=== PATIENT | female | born 1980 | race Caucasian/White ===

== ENCOUNTER → 2016-06-29 | Outpatient (CLI) | payer OTHER ==
--- NOTE | 2016-06-29 14:41 | MR ---
EXAMINATION TYPE: MR lumbar spine wo con DATE OF EXAM: 06/29/2016 2:20 PM COMPARISON: 07/27/2013 HISTORY: Low back pain TECHNIQUE: T1 and T2 axial and sagittal images of the lumbar spine are submitted. FINDINGS: There is no abnormal signal seen within the visualized spinal cord or paraspinal soft tissu es. At L1-2 there is no disc herniation, degenerative disc disease, canal stenosis, or foraminal encroach ment. At L2-3 there is mild disc desiccation but no disc herniation, canal stenosis, or foraminal encroachm ent. At L3-4 there is no disc herniation, degenerative disc disease, canal stenosis, or foraminal encroach ment. At L4-5 there is disc desiccation and annular tear but no focal herniation. Neural foramina remain pa tent. No Canal stenosis. Mild facet hypertrophy. Findings are stable. At L5-S1 there is severe degenerative disc disease with discogenic marrow changes. There is mild hype rtrophy of the facets with moderate to severe left-sided foraminal encroachment and mild to moderate right foraminal encroachment. Circumferential disc bulging with a greater left lateral component is n oted. Findings are stable. IMPRESSION: 1. Stable MRI demonstrating severe degenerative disc disease L5-S1 with disc bulging greater laterall y to left resulting in moderate to severe foraminal encroachment on the left. 2. Stable disc desiccation and annular tear L4-L5 with no evidence of canal stenosis, disc herniation or foraminal encroachment.
== END | disposition home or self-care (01) ==
LOC: RADMRIMAIN 13:46
PROVIDERS: ATTEND Internal Medicine
DX: M51.27 Other intervertebral disc displacement, lumbosacral region (principal); M51.37 Other intervertebral disc degeneration, lumbosacral region
CPT/HCPCS: 72148

== ENCOUNTER 2016-10-15 17:34 | Emergency (ER) | payer OTHER ==
[2016-10-15] MEDS ORDERED: DEXAMETHASONE SOD PHOSPHATE 10 MG/ML 1 ML VIAL IV STA (17:47)
[2016-10-15] MEDS ORDERED: diphenhydrAMINE 50 MG/ML 1 ML VIAL IVP STA (17:47)
[2016-10-15] MEDS ORDERED: SODIUM CHLORIDE 0.9% 1,000 ML IV ONE (17:47)
--- NOTE | 2016-10-15 18:21 | ED ---
General Adult HPI - General Chief complaint: Skin/Abscess/Foreign Body Stated complaint: Allergic Reaction Time Seen by Provider: 10/15/16 17:41 Source: patient Mode of arrival: EMS Limitations: no limitations - History of Present Illness Initial comments: Patient presents with a chief complaint of bee sting. Patient states that she has an ALLERGY to bees, and was stung 20 minutes prior to presentation. Patient states that she gave herself a shot with her EpiPen. Patient denies any other pain or symptoms at this time. Patient specifically denies shortness of breath, chest pain, difficulty swallowing, or difficulty tolerating her own secretions. Further conversation reveals that the patient has never had fully anaphylactic reaction however she does have diffuse hives and itching when stung by a bee. On initial evaluation, patient is tachycardic likely secondary to the EpiPen, otherwise she is in no acute distress Onset/Timin -: minutes(s) Location: lower extremity Associated Symptoms: denies other symptoms - Related Data Home Medications Medication Instructions Recorded Confirmed Cyclobenzaprine [Flexeril] 10 mg PO HS 11/12/13 04/04/16 Dextroamphetamine/Amphetamine 30 mg PO BID 11/12/13 04/04/16 [Adderall] Gabapentin [Neurontin] 600 mg PO TID 11/12/13 04/04/16 Propranolol [Inderal] 60 mg PO QAM 11/12/13 04/04/16 Docusate Sodium [Colace] 100 mg PO BID 01/02/15 04/04/16 Esomeprazole Magnesium [NexIUM 20 mg PO DAILY 01/02/15 04/04/16 24Hr] Lisinopril [Prinivil] 10 mg PO QAM 03/04/16 04/04/16 Mirtazapine [Remeron] 15 mg PO HS 10/15/16 10/15/16 Pravastatin Sodium [Pravachol] 40 mg PO DAILY 10/15/16 10/15/16 Vortioxetine Hydrobromide 20 mg PO DAILY 10/15/16 10/15/16 [Trintellix] diphenhydrAMINE HCL [Benadryl] 25 mg PO HS PRN 10/15/16 10/15/16 oxyCODONE HCL/ACETAMINOPHEN 1 tab PO TID PRN 10/15/16 10/15/16 [Percocet 7.5-325 mg] Previous Rx's Medication Instructions Recorded LORazepam [Ativan] 1 mg PO BID #10 tab 01/05/15 Ziprasidone [Geodon] 60 mg PO BID #14 cap 01/05/15 EPINEPHrine [Epipen 2-Kaiden] 0.3 mg IJ ONCE PRN #1 auto.injct 10/15/16 diphenhydrAMINE HCL [Benadryl] 25 mg PO HS #12 tab 10/15/16 predniSONE 50 mg PO DAILY #3 tablet 10/15/16 Allergies Allergy/AdvReac Type Severity Reaction Status Date / Time omeprazole Allergy Rash/Hives Verified 10/15/16 18:46 Review of Systems ROS Statement: Those systems with pertinent positive or pertinent negative responses have been documented in the HPI. Patient denies dizziness, lightheadedness, shortness of breath, trouble swallowing, trouble breathing, chest pain, abdominal pain, nausea, vomiting, diarrhea, dysuria, vaginal bleeding, vaginal discharge ROS Other: All systems not noted in ROS Statement are negative. Past Medical History Past Medical History: GERD/Reflux, Hypertension, Sleep Apnea/CPAP/BIPAP Additional Past Medical History / Comment(s): vomiting,uses cpap,has Nexplanon Implant History of Any Multi-Drug Resistant Organisms: None Reported Additional Past Surgical History / Comment(s): sinus surgery,R K surg Past Anesthesia/Blood Transfusion Reactions: Motion Sickness Past Psychological History: Anxiety, Bipolar, Depression Smoking Status: Current some day smoker Past Alcohol Use History: None Reported Past Drug Use History: None Reported - Past Family History Mother Family Medical History: Cancer Additional Family Medical History / Comment(s): lymphoma and leukemia Father Family Medical History: Hypertension General Exam Limitations: no limitations General appearance: alert, in no apparent distress Head exam: Present: atraumatic, normocephalic Eye exam: Present: normal appearance ENT exam: Present: normal oropharynx, mucous membranes moist Neck exam: Present: normal inspection Respiratory exam: Present: normal lung sounds bilaterally Cardiovascular Exam: Present: normal rhythm, tachycardia GI/Abdominal exam: Present: soft Rectal exam: Present: deferred Extremities exam: Present: other (Right lower extremity has a very small puncture wounds likely secondary to an insect sting or on the anterior aspect of her mid rinaldi) Back exam: Present: normal inspection Neurological exam: Present: alert, oriented X3 Psychiatric exam: Present: normal affect, normal mood Skin exam: Present: warm, dry, intact Course Vital Signs 10/15/16 17:38 Temperature 100.4 F H Pulse Rate 123 H Respiratory 20 Rate Blood Pressure 125/73 O2 Sat by Pulse 99 Oximetry Medical Decision Making - Medical Decision Making Patient presents with a chief complaint of bee sting, and a history of ALLERGIES to bee stings. On arrival, patient is tachycardic likely secondary to self administration of EpiPen but otherwise stable. Patient appears to be in no distress. Patient speaking in full sentences, breathing is nonlabored. Patient was given IV Decadron, Benadryl, and a liter of IV fluids. Patient will be monitored for an hour. 6:47 PM Patient has remained stable and her period of observation the emergency department. She continued to maintain her airway, and is having nonlabored breathing. This time, patient is stable for outpatient management. I will prescribe Benadryl, a course of prednisone. Patient will be given a prescription for an EpiPen. She is instructed to follow-up with her primary care doctor in 3-5 days. Further she is instructed to return to the emergency department if her symptoms worsen or change in any way. Disposition Clinical Impression: Allergic reaction, Bee sting allergy Disposition: HOME SELF-CARE Condition: Good Instructions: Anaphylaxis (ED) Referrals: Tiarra Jimenez MD [Primary Care Provider] - 1-2 days
[2016-10-15 19:22] VITALS: BP 121/73; PULSE 101; RESP 16; TEMP 98.7
== END 2016-10-15 19:23 | disposition home or self-care (01) ==
LOC: EC 17:34
DX: T63.441A Toxic effect of venom of bees, accidental (unintentional), initial encounter (principal); R00.0 Tachycardia, unspecified; Z91.030 Bee allergy status; I10 Essential (primary) hypertension; K21.9 Gastro-esophageal reflux disease without esophagitis; F17.200 Nicotine dependence, unspecified, uncomplicated; F32.9 Major depressive disorder, single episode, unspecified; F41.9 Anxiety disorder, unspecified; Z79.899 Other long term (current) drug therapy; Z88.8 Allergy status to other drugs, medicaments and biological substances
CPT/HCPCS: 99284; 96374; 96375; 96361; J1200; J1100

== ENCOUNTER → 2016-12-24 | Outpatient (CLI) | payer OTHER ==
--- NOTE | 2016-12-24 11:34 | P.HPIM ---
History of Present Illness H&P Date: 12/24/16 Chief Complaint: low back pain This is a 36-year-old obese female patient referred by Dr. Jimenez for chronic pain in low back without radiation. Patient has been taking medications from primary care physician including Percocet medications with some relief. Patient denies adverse drug effects from medications. Patient also denies new- onset weakness, bowel/bladder incontinence, or any other signs or symptoms of cauda equina syndrome. There are no signs of acute intoxication, and no indications of medication diversion or overuse. Patient notes that pain worsens significantly with standing and walking and improves with rest and medication. Patient has used several types of medications for pain, including NSAIDS, OPIOIDS (Percocet), BENZODIAZEPINES (Ativan), and marijuana. Patient HAS NOT had surgery. Patient HAS had injections previously without significant relief. Patient HAS had physical therapy last year without significant relief. In addition to above, 13-point review of systems is also negative for chest pain , shortness of breath, changes in vision, changes in hearing, new onset weakness , abdominal pain, diarrhea, extreme fatigue, malaise, fever, skin changes, homicidal or suicidal ideation, or bowel or bladder incontinence. Vital Signs: Reviewed in EMR Gen: WDWN, AAOx3, NAD HEENT: NCAT, EOMI, hearing grossly normal Pulm: resp unlabored Abd: soft, NT, ND, obese Neck: supple, trachea midline ROM in flexion lumbar spine: reduced ROM in extension lumbar spine: reduced Lumbar paravertebral tenderness: + Facet loading: + bilateral, R > L SI joint tenderness: + R > L Demetrius's test: neg Straight leg raise: neg Neuro: CN II-XII grossly intact, muscle strength lower extremities PRESERVED Past Medical History Past Medical History: GERD/Reflux, Hypertension, Sleep Apnea/CPAP/BIPAP Additional Past Medical History / Comment(s): vomiting,uses cpap,has Nexplanon Implant History of Any Multi-Drug Resistant Organisms: None Reported Additional Past Surgical History / Comment(s): sinus surgery,R K surg Past Anesthesia/Blood Transfusion Reactions: Motion Sickness Smoking Status: Current some day smoker - Past Family History Mother Family Medical History: Cancer Additional Family Medical History / Comment(s): lymphoma and leukemia Father Family Medical History: Hypertension Medications and Allergies Home Medications Medication Instructions Recorded Confirmed Type Cyclobenzaprine [Flexeril] 10 mg PO HS 11/12/13 12/24/16 History Dextroamphetamine/Amphetamine 30 mg PO BID 11/12/13 12/24/16 History [Adderall] Gabapentin [Neurontin] 600 mg PO TID 11/12/13 12/24/16 History Propranolol [Inderal] 60 mg PO DAILY 11/12/13 12/24/16 History Docusate Sodium [Colace] 100 mg PO BID 01/02/15 12/24/16 History Esomeprazole Magnesium [NexIUM 20 mg PO DAILY 01/02/15 12/24/16 History 24Hr] Ziprasidone [Geodon] 60 mg PO BID #14 cap 01/05/15 12/24/16 Rx Lisinopril [Prinivil] 10 mg PO DAILY 03/04/16 12/24/16 History EPINEPHrine [Epipen 2-Kaiden] 0.3 mg IJ ONCE PRN #1 auto.injct 10/15/16 12/24/16 Rx Mirtazapine [Remeron] 7.5 mg PO HS 10/15/16 12/24/16 History Pravastatin Sodium [Pravachol] 40 mg PO DAILY 10/15/16 12/24/16 History Vortioxetine Hydrobromide 20 mg PO DAILY 10/15/16 12/24/16 History [Trintellix] oxyCODONE HCL/ACETAMINOPHEN 1 tab PO TID PRN 10/15/16 12/24/16 History [Percocet 7.5-325 mg] LORazepam [Ativan] 1 mg PO TID 12/24/16 12/24/16 History Allergies Allergy/AdvReac Type Severity Reaction Status Date / Time omeprazole Allergy Rash/Hives Verified 12/24/16 11:17 Physical Exam Vitals: Intake and Output 12/23/16 12/24/16 12/24/16 22:59 06:59 14:59 Other: Weight 127.006 kg Patient Weight 12/25/16 06:59 Weight 127.006 kg Assessment and Plan Plan: 1. Explanation: Opioid and psychological risk scores were reviewed. Diagnoses , prognoses, and multiple treatment options including but not limited to physical therapy, interventional therapies, adjuvant medical therapies, narcotic medication therapies, and surgery were discussed with the patient and all questions were answered to the patient's satisfaction. 2. Opioid agreement: no opioids prescribed today 3. Counseling: The patient was counseled extensively on SMOKING CESSATION, BODY MASS INDEX, EXERCISE. Specifically, the patient was instructed regarding the importance of smoking cessation, weight control, and exercise in the context of both chronic pain and overall health. 4. Procedures: bilateral lumbar MBB L3-S1 5. Consultations: none 6. Investigations: none 7. Medications: none prescribed, patient uses THC 8. Disposition: f/u for procedure as scheduled PQRS measures: 1-Patient's medications are documented in the chart. 2-Tobacco use is positive, counseling given 3-Patient has not had a pneumococcal vaccine. 4-Advanced care planning discussed, patient unable to give. 5-Opioid contract signed with the patient. 6-Pain positive, follow-up visit or procedure scheduled 7-Patient's blood pressure measured and documented, and patient will follow up with the primary care due to hypertension. 8-Patient's weight was measured, and body mass index ABOVE the normal limits, and counseling was done. Patient instructed to follow up with PCP. 9-Patient WAS NOT identified as an unhealthy alcohol user. Time with Patient: Greater than 30
== END ==
LOC: PNWHC3 10:51
PROVIDERS: ATTEND Anesthesiology
DX: M99.73 Connective tissue and disc stenosis of intervertebral foramina of lumbar region (principal); M51.26 Other intervertebral disc displacement, lumbar region; M47.816 Spondylosis without myelopathy or radiculopathy, lumbar region; F17.200 Nicotine dependence, unspecified, uncomplicated; E66.01 Morbid (severe) obesity due to excess calories; Z79.899 Other long term (current) drug therapy; Z88.8 Allergy status to other drugs, medicaments and biological substances
CPT/HCPCS: 99211

== ENCOUNTER 2017-02-11 09:20 | Day surgery (SDC) | payer OTHER ==
[2017-02-06 13:36] VITALS: BMI 48.0
[~2017-02-11 09:20] MED LIST: LACTATED RINGERS 1,000 ML IV SCH
[2017-02-11 09:41] VITALS: TEMP 97.2
[2017-02-11] MEDS ORDERED: LIDOCAINE 1% 20 ML VIAL (10MG/ML) FOR IV START INTRADERMA ONE (09:42)
--- NOTE | 2017-02-11 10:03 | P.PCN ---
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 POSTOPERATIVE DIAGNOSIS: L3-L4, L4-L5, and L5-S1 spondylosis without myelopathy and facet arthropathy. PROCEDURE DESCRIPTION: Patient presents for L3-L4, L4-L5 and L5-S1 diagnostic medial branch blocks under fluoroscopic guidance. The procedure is performed using fluoroscopic guidance during needle placement to assure proper position and maximize safety. ANESTHESIA: Local with 1% lidocaine; conscious sedation with Versed only EBL: Minimal PROCEDURE INDICATION: Patient with lumbar facet arthropathy signs and symptoms, here for diagnostic medial branch block. Pt does not take any blood thinning medications. LMBB #2 today after >50% relief for two weeks from first procedure. PROCEDURE DESCRIPTION: The patient was seen and identified in the preoperative area. Risks, benefits, complications, and alternatives were discussed with the patient (including but not limited to incomplete pain relief, bleeding, infection, nerve damage, and allergies to medications), the patient agreed to proceed with the procedure and signed the consent after all questions were answered. Patient was taken to the OR and time out was completed to verify proper patient, position, laterality of pain, and allergies. Pt was placed in the prone position and a pillow was placed under the abdomen to reduce lumbar lordosis. The lumbosacral area was prepped and draped in the usual sterile fashion. Using oblique fluoroscopy, the eye of the "Jorge dog" of right L4 vertebral body, which corresponds to the path of the medial branch originating from the level above, which is L3 in this case, was identified. Subsequently, a 22-gauge 5-inch spinal needle was inserted under fluoroscopic guidance toward the eye of the "Jorge dog" of the right L4 vertebral body, corresponding to the junction of the superior articular process and the transverse process of the pedicle of the same level. After needle tip confirmation on lateral view and after negative aspiration for CSF and blood and without paresthesias, 1 mL of a 6 ml solution of 0.5% preservative-free bupivacaine and 40 mg Kenalog was injected. Subsequently the needle was withdrawn intact and the same procedure was repeated for the right L4, right L5, left L3, left L4, and left L5 medial branches which together with right L3 medial branch correspond to the sensory innervation of the bilateral L3-L4, L4-L5, and L5-S1 facet joints. Needle was withdrawn intact after each injection. At the end of the procedure, the skin was cleansed and bandages were applied. COMPLICATIONS: None. DISPOSITION/PLAN: The patient taken to the recovery area after the procedure in a stable condition for observation. Patient was reexamined prior to discharge and there were no issues. Patient was discharged home, accompanied by an adult, after meeting discharged criteria. Discharge instructions were give to the patient by the staff. Patient was specifically instructed not to drive today and to rest for the rest of the day. Patient will follow up for repeat R lumbar RFA at next visit.
[2017-02-11] MEDS ORDERED: IV FLUID CONTINUATION 1,000 ML IV ONE (10:15)
--- NOTE | 2017-02-11 10:28 | FL ---
Fluoroscopy INDICATION: Pain FINDINGS: Fluoroscopy time: 28 seconds. Images obtained: 6. IMPRESSIONS: 1. Documentation of fluoroscopy.
[2017-02-11 10:44] VITALS: BP 131/93; PULSE 91; RESP 18
== END 2017-02-11 10:44 | disposition home or self-care (01) ==
LOC: ORPAIN 09:20
PROVIDERS: ATTEND Anesthesiology
DX: M47.816 Spondylosis without myelopathy or radiculopathy, lumbar region (principal); M47.817 Spondylosis without myelopathy or radiculopathy, lumbosacral region; M46.96 Unspecified inflammatory spondylopathy, lumbar region; M46.97 Unspecified inflammatory spondylopathy, lumbosacral region; I10 Essential (primary) hypertension; E78.5 Hyperlipidemia, unspecified; F32.9 Major depressive disorder, single episode, unspecified; Z88.8 Allergy status to other drugs, medicaments and biological substances
CPT/HCPCS: 81025; 64493; 64494; 64495; J2250; J3301; 99152; 99153

== ENCOUNTER 2017-04-24 17:21 | Emergency (ER) | payer OTHER ==
[2017-04-24 17:41] VITALS: BP 129/87; PULSE 89; RESP 18; TEMP 98
[2017-04-24] MEDS ORDERED: ACETAMINOPHEN TAB 500 MG TAB PO STA (18:38)
--- NOTE | 2017-04-24 18:43 | ED ---
Head Injury HPI - General Chief complaint: Head Injury Stated complaint: Head injury Time Seen by Provider: 04/24/17 18:27 Source: patient, RN notes reviewed Mode of arrival: ambulatory Limitations: no limitations - History of Present Illness Initial comments: This is a 36-year-old female who presents to the emergency department with chief complaint of scalp laceration. Patient states that approximately one hour prior to arrival she was cleaning a bookshelf. She started from the bottom of the bookshelf and it fell over hitting her on the top of the head. She denies any loss of consciousness, nausea or vomiting, dizziness. She states that she does have a mild headache currently. She states that she does not believe she is up-to-date with her tetanus vaccination. Denies any other injuries. Denies being on any anticoagulants or blood thinners. Denies fever, chills, chest pain , shortness of breath, abdominal pain, nausea or vomiting, constipation or diarrhea, dysuria or hematuria, numbness or tingling, or vision changes. - Related Data Home Medications Medication Instructions Recorded Confirmed Cyclobenzaprine [Flexeril] 10 mg PO HS 11/12/13 03/17/17 Dextroamphetamine/Amphetamine 30 mg PO BID 11/12/13 03/17/17 [Adderall] Gabapentin [Neurontin] 600 mg PO TID 11/12/13 03/17/17 Propranolol [Inderal] 60 mg PO DAILY 11/12/13 03/17/17 Docusate Sodium [Colace] 100 mg PO BID 01/02/15 03/17/17 Esomeprazole Magnesium [NexIUM 20 mg PO DAILY 01/02/15 03/17/17 24Hr] Lisinopril [Prinivil] 10 mg PO DAILY 03/04/16 03/17/17 Pravastatin Sodium [Pravachol] 40 mg PO DAILY 10/15/16 03/17/17 Vortioxetine Hydrobromide 20 mg PO DAILY 10/15/16 03/17/17 [Trintellix] oxyCODONE HCL/ACETAMINOPHEN 1 tab PO TID 10/15/16 03/17/17 [Percocet 7.5-325 mg] LORazepam [Ativan] 1 mg PO BID 12/24/16 03/17/17 LORazepam [Ativan] 0.5 mg PO W/LUNCH 01/09/17 03/17/17 traZODone HCL [Desyrel] 50 mg PO HS 02/06/17 03/17/17 Topiramate [Trokendi Xr] 100 mg PO HS 03/17/17 03/17/17 Previous Rx's Medication Instructions Recorded Ziprasidone [Geodon] 60 mg PO BID #14 cap 01/05/15 Allergies/Adverse reactions: Allergies Allergy/AdvReac Type Severity Reaction Status Date / Time omeprazole Allergy Rash/Hives Verified 03/17/17 16:00 Review of Systems ROS Statement: Those systems with pertinent positive or pertinent negative responses have been documented in the HPI. ROS Other: All systems not noted in ROS Statement are negative. Past Medical History Past Medical History: COPD, GERD/Reflux, Hyperlipidemia, Hypertension, Sleep Apnea/CPAP/BIPAP Additional Past Medical History / Comment(s): hx migraines, ,has Nexplanon Implant, History of Any Multi-Drug Resistant Organisms: None Reported Additional Past Surgical History / Comment(s): sinus surgery, eye Past Anesthesia/Blood Transfusion Reactions: Motion Sickness Past Psychological History: Anxiety, Bipolar, Depression Smoking Status: Current every day smoker Past Alcohol Use History: None Reported Past Drug Use History: None Reported - Past Family History Mother Family Medical History: Cancer Additional Family Medical History / Comment(s): lymphoma Father Family Medical History: Hypertension General Exam - General Exam Comments Initial Comments: General: Awake and alert, well-developed; in no apparent distress. HEENT: Head normocephalic. Approximately 1.0 cm linear laceration at mid frontal parietal skull. Bleeding is controlled. Pupils are equal, round and reactive to light. Extraocular movements intact. Oropharynx moist without erythema or exudate. Neck: Supple. Normal ROM. Cardiovascular: Regular rate and rhythm. No murmurs, rubs or gallops. Chest symmetrical. Respiratory: Lungs clear to auscultation bilaterally. No wheezes, rales or rhonchi. Normal respiratory effort with no use of accessory muscles. Musculoskeletal: Normal ROM, no tenderness bilateral upper and lower extremities. Skin: Angels, warm and dry without rashes or lesions. Neurological: Alert and oriented x3. CN II-XII grossly intact. Speech is fluent and answers are appropriate. No focal neuro deficits. Psychiatric: Normal mood and affect. No overt signs of depression or anxiety noted. Limitations: no limitations Course Vital Signs 04/24/17 17:39 Temperature 98 F Pulse Rate 89 Respiratory 18 Rate Blood Pressure 129/87 O2 Sat by Pulse 98 Oximetry Procedures - Laceration Laceration #1 Consent Obtained: verbal consent Indication: laceration Site: scalp Size (cm): 1 Description: linear Depth: simple, single layer Type of Sutures: other (Delaney) Number of Sutures: 2 Technique: simple, interrupted Patient Tolerated Procedure: well, no complications Medical Decision Making - Medical Decision Making This is a 36-year-old female who presents to the emergency department for evaluation of head injury. Patient denied any loss of consciousness, dizziness , nausea or vomiting. She denied any other injury. Patient sustained a 1.0 cm linear laceration at the top of head. 2 delaney were placed and patient tolerated well without complication. She will be discharged home. Recommended removal of delaney in 5 days. Patient is in agreement with plan and voices understanding. All questions were answered. Disposition Clinical Impression: Scalp laceration Disposition: HOME SELF-CARE Condition: Good Instructions: Laceration (ED), Staple Care (ED), Head Injury (ED) Additional Instructions: Please have delaney removed in 5 days. Please follow up with primary care provider within 1-2 days. Return to emergency department if symptoms should worsen or any concerns arise. Referrals: Tiarra Jimenez MD [Primary Care Provider] - 1-2 days Time of Disposition: 19:03
== END 2017-04-24 19:07 | disposition home or self-care (01) ==
LOC: EC 17:21
DX: S01.01XA Laceration without foreign body of scalp, initial encounter (principal); K21.9 Gastro-esophageal reflux disease without esophagitis; E78.5 Hyperlipidemia, unspecified; I10 Essential (primary) hypertension; G47.30 Sleep apnea, unspecified; Z99.89 Dependence on other enabling machines and devices; F41.9 Anxiety disorder, unspecified; F32.9 Major depressive disorder, single episode, unspecified; F17.200 Nicotine dependence, unspecified, uncomplicated; Z86.69 Personal history of other diseases of the nervous system and sense organs; Z79.891 Long term (current) use of opiate analgesic; Z79.899 Other long term (current) drug therapy; Z88.8 Allergy status to other drugs, medicaments and biological substances; W20.8XXA Other cause of strike by thrown, projected or falling object, initial encounter; Y93.89 Activity, other specified
CPT/HCPCS: 12001; 99283

== ENCOUNTER 2017-05-08 09:40 | Day surgery (SDC) | payer OTHER ==
[2017-05-05 09:28] VITALS: BMI 44.6
[2017-05-08 09:56] VITALS: RESP 16; TEMP 97.6
[2017-05-08] MEDS ORDERED: LIDOCAINE 1% 20 ML VIAL (10MG/ML) FOR IV START INTRADERMA ONE (09:57)
--- NOTE | 2017-05-08 11:12 | P.PCN ---
Date of Procedure: 05/08/17 Surgeon: Jeremy Ricks Description of Procedure: PREOPERATIVE DIAGNOSIS: Lumbar spondylosis without myelopathy, morbid obesity POSTOPERATIVE DIAGNOSIS: Lumbar spondylosis without myelopathy,morbid obesity PROCEDURES : Right Radiofrequency thermocoagulation,L2-4, L3-L4, L4-L5, and L5- S1 medial branch, with fluoroscopic guidance ANESTHESIA: IV moderate conscious sedation with versed and fentanyl and local infiltration with lidocaine 1% 5 ml EBL: Minimal PROCEDURE INDICATION: The patient with low back pain secondary to lumbar facet arthropathy who had more than 50% relief of her pain with previous diagnostic lumbar medial branch block with bupivacaine. PROCEDURE DESCRIPTION / TECHNIQUE: The patient was seen and identified in the preoperative area. Risks, benefits, complications, including but not limited to risk of infection ,bleeding , allergic reactions to the medications and no complete pain releife , and alternatives were discussed with the patient, the patient agreed to proceed with the procedure and signed the consent. IV was started. Vital signs remained stable throughout the procedure. Patient was taken to the OR and time out was completed. The patient was placed in the prone position on the procedure table. The lumber area was prepped and draped in the usual sterile fashion. . Vital signs were closely monitored during the procedure .IV sedation was used during the procedure to decrease patients anxiety. The target points were identified as follows: For the L5-S1 level which corresponds to the dorsal ramus of L5 the target point was at the superior medial aspect of the sacral ala on the rt side of the spine on the AP view of fluoroscopy and for the L2, L3, and L4 medial branches the target points were at the connection between the transverse process and the superior articular process of L3, L4, and L5 vertebra respectively on the rt oblique view of fluoroscopy. skin was marked, and localized with 1% lidocaineat these points. Subsequently, an 18 [id number] radiofrequency needles with a 10-mm curved active tips were advanced guided by fluoroscopy to each of the target points mentioned above in a superior medial direction to get the active tips as parallel as possible to the medial branches tracks. AP, oblique, and lateral views of fluoroscopy were used to verify needle tips position. Each level then underwent motor testing at 2.5 Hz and 0 to 3 volt with local stimulation, but no radicular symptoms down the legs. Thereafter radiofrequency thermocoagulation at 80 degrees celsius for 90 seconds after injecting 1 ml of PF Marcaine 0.5%(3 mls) with 40 mg of Kenalog. At the end of the procedure, the skin was cleansed and bandages were applied. COMPLICATIONS: No acute complications. DISPOSITION / PLANS: The patient was placed in a supine position and transferred to the recovery area in a stable condition for observation and was discharged from the recovery room after meeting discharge criteria. Home discharge instructions given to the patient by the staff. The patient was reexamined prior to discharge. The patient will schedule a follow up in the clinic in 2-4 weeks.
--- NOTE | 2017-05-08 11:38 | FL ---
EXAMINATION TYPE: FL guided pain mgmt statistic DATE OF EXAM: 05/08/2017 FLUOROSCOPY Fluoroscopy time of 34 seconds was used during right-sided lumbar radiofrequency ablation. 3 image/s document/s the procedure.
[2017-05-08 11:49] VITALS: BP 127/88; PULSE 74
== END 2017-05-08 12:14 | disposition home or self-care (01) ==
LOC: ORPAIN 09:40
PROVIDERS: ATTEND Anesthesiology
DX: M47.816 Spondylosis without myelopathy or radiculopathy, lumbar region (principal); I10 Essential (primary) hypertension; E66.01 Morbid (severe) obesity due to excess calories; Z68.41 Body mass index [BMI] 40.0-44.9, adult; Z88.8 Allergy status to other drugs, medicaments and biological substances
CPT/HCPCS: 64635; 64636 ×3; 81025; J2250; J3301; J2001; J3010; 99152; 99153

== ENCOUNTER 2017-06-09 08:44 | Day surgery (SDC) | payer OTHER ==
[2017-06-06 10:29] VITALS: BMI 46.3
[2017-06-09 08:59] VITALS: TEMP 98
[2017-06-09] MEDS ORDERED: LACTATED RINGERS 1,000 ML IV ONE (08:59)
[2017-06-09] MEDS ORDERED: LIDOCAINE 1% 20 ML VIAL (10MG/ML) FOR IV START INTRADERMA ONE (09:00)
--- NOTE | 2017-06-09 09:28 | P.PCN ---
Date of Procedure: 06/09/17 Surgeon: Milo Briggs Pathology: none sent Condition: stable Disposition: PACU Description of Procedure: PREOPERATIVE DIAGNOSIS: Lumbar spondylosis without myelopathy and facet arthropathy POSTOPERATIVE DIAGNOSIS: Lumbar spondylosis without myelopathy and facet arthropathy PROCEDURES: Left Radiofrequency thermocoagulation, L3-L4, L4-L5, and L5-S1 medial branch, with fluoroscopic guidance. ANESTHESIA: 1% lidocaine plain; Conscious sedation with versed/fentanyl EBL: Minimal PROCEDURE INDICATION: The patient with low back pain secondary to lumbar arthropathy who had more than 50% relief of pain with previous diagnostic lumbar medial branch block with bupivacaine. Patient presents for left lumbar RFA today after good relief from right sided procedure; no use of blood thinners. PROCEDURE DESCRIPTION / TECHNIQUE: The patient was seen and identified in the preoperative area. Risks, benefits, complications, and alternatives were discussed with the patient (including but not limited to incomplete pain relief , bleeding, infection, nerve damage, and allergies to medications), the patient agreed to proceed with the procedure and signed the consent after all questions were answered. Patient was taken to the OR and time out was completed to verify proper patient , position, laterality of pain, and allergies. Pt was placed in the prone position. IV was started. Vital signs remained stable throughout the procedure. A pillow was placed under the patients chest to decrease lordosis. The lumbosacral area was prepped and draped in the usual sterile fashion. Vital signs were closely monitored during the procedure. Conscious sedation was used during the procedure to decrease patients anxiety. Using AP and then oblique fluoroscopy, the eye of the Jorge dog corresponding to the connection between the superior and transverse articular processes of left L3, L4, L5 and top of the sacrum were identified, marked, and localized with 1% lidocaine. Subsequently, a 20 gauge, 150-mm radiofrequency cannula with a 10-mm active tip was advanced guided by fluoroscopy to each of the eyes of the Jorge dog at the levels of all four medial branches. Each site then underwent sensory testing at 50 Hz and 0 to 1 volt and motor testing at 2 Hz and 0 to 3 volt with local stimulation, but no radicular symptoms down the legs. Thereafter all four medial branch sites underwent radiofrequency thermocoagulation at 80 degrees Celsius for 90 seconds after injecting 0.5 ml of PF lidocaine 1%. After thermocoagulation, 1 ml of the block solution containing Kenalog 40 mg and 2 mL of preservative-free normal saline was injected at all four medial branch levels after negative aspiration of CSF and blood and with no paresthesias. Cannulas were retracted while injecting lidocaine 1% until the needles were removed. At the end of the procedure, the skin was cleansed and bandages were applied. COMPLICATIONS: No acute complications. DISPOSITION / PLANS: The patient was placed in a supine position and transferred to the recovery area in a stable condition for observation and was discharged from the recovery room after meeting discharge criteria. Home discharge instructions given to the patient by the staff. The patient was reexamined prior to discharge. The patient will schedule a follow up in the clinic in 2-4 weeks.
[2017-06-09] MEDS ORDERED: IV FLUID CONTINUATION 1,000 ML IV ONE (09:56)
[2017-06-09 10:15] VITALS: RESP 16
[2017-06-09 10:18] VITALS: BP 124/76; PULSE 81
--- NOTE | 2017-06-09 11:19 | FL ---
EXAMINATION TYPE: FL guided pain mgmt statistic DATE OF EXAM: 06/09/2017 COMPARISON: NONE HISTORY: Back pain TECHNIQUE: Fluoroscopy. FINDINGS/IMPRESSION: Fluoroscopic guidance was provided during procedure performed by Dr. Mendez. A total of 8 seconds of fluoroscopic time was utilized during the procedure and 4 spot images was acqu ired demonstrating localization at multiple levels of the lumbar spine.
== END 2017-06-09 10:44 | disposition home or self-care (01) ==
LOC: ORPAIN 08:44
PROVIDERS: ATTEND Anesthesiology
DX: M47.816 Spondylosis without myelopathy or radiculopathy, lumbar region (principal); I10 Essential (primary) hypertension; E78.5 Hyperlipidemia, unspecified; G47.30 Sleep apnea, unspecified; K21.9 Gastro-esophageal reflux disease without esophagitis; Z88.8 Allergy status to other drugs, medicaments and biological substances
CPT/HCPCS: 81025; 64635; 64636; J2250; J3301; J3010; 99152

== ENCOUNTER → 2017-07-03 | Outpatient (CLI) | payer OTHER ==
[2017-07-03 11:53] VITALS: BP 119/86; PULSE 102; RESP 16; TEMP 97.9
--- NOTE | 2017-07-03 11:55 | P.PN ---
Progress Note - Text Progress Note Date: 07/03/17 Patient returns for followup for chronic back pain with radiation to hips. Patient recently underwent bilateral lumbar RFA, which has provided relief since procedures. Patient continues on [place] medications for pain from PCP with good relief. Patient denies adverse drug effects from medications. Today , pt denies new-onset weakness, bowel/bladder incontinence, or any other signs or symptoms of cauda equina syndrome. There are no signs of acute intoxication, and no indications of medication diversion or overuse. In addition to above, 13-point review of systems is also negative for chest pain , shortness of breath, changes in vision, changes in hearing, new onset weakness , abdominal pain, diarrhea, extreme fatigue, malaise, fever, skin changes, homicidal or suicidal ideation, or bowel or bladder incontinence. Vital Signs: Reviewed in EMR Gen: WDWN, AAOx3, NAD HEENT: NCAT, EOMI, hearing grossly normal Pulm: resp unlabored Abd: soft, NT, ND, obese Neck: supple, trachea midline ROM in flexion lumbar spine: reduced ROM in extension lumbar spine: reduced Lumbar paravertebral tenderness: + Facet loading: minimal SI joint tenderness: neg Demetrius's test: + L > R Straight leg raise: neg Neuro: CN II-XII grossly intact, muscle strength lower extremities PRESERVED Imaging: Reviewed in EMR Assessment: 1. lumbar spondylosis without myelopathy 2. chronic pain syndrome 3. obesity NOS Plan: 1. Explanation: Opioid and psychological risk scores were reviewed. Diagnoses , prognoses, and multiple treatment options including but not limited to physical therapy, interventional therapies, adjuvant medical therapies, narcotic medication therapies, and surgery were discussed with the patient and all questions were answered to the patient's satisfaction. 2. Opioid agreement: no opioids prescribed today 3. Counseling: The patient was counseled extensively on BODY MASS INDEX, EXERCISE. Specifically, the patient was instructed regarding the importance of smoking cessation, weight control, and exercise in the context of both chronic pain and overall health. 4. Procedures: none for now 5. Consultations: None 6. Investigations: None 7. Medications: none 8. Disposition: f/u as needed; patient can call to reschedule RFA PQRS measures: 1-Patient's medications are documented in the chart. 2-Tobacco use is positive, counseling given 3-Patient has not had a pneumococcal vaccine. 4-Advanced care planning discussed, patient unable to give. 5-Opioid contract NOT signed with the patient. 6-Pain positive, follow-up visit or procedure scheduled 7-Patient's blood pressure measured and documented, and patient will follow up with the primary care due to hypertension. 8-Patient's weight was measured, and body mass index ABOVE the normal limits, and counseling was done. Patient instructed to follow up with PCP. 9-Patient WAS NOT identified as an unhealthy alcohol user.
== END ==
LOC: PNWHC3 11:14
PROVIDERS: ATTEND Anesthesiology
DX: G89.4 Chronic pain syndrome (principal); M47.816 Spondylosis without myelopathy or radiculopathy, lumbar region; E66.9 Obesity, unspecified; Z79.891 Long term (current) use of opiate analgesic; Z68.42 Body mass index [BMI] 45.0-49.9, adult
CPT/HCPCS: 99211

== ENCOUNTER 2017-09-01 20:39 | Emergency (ER) | payer OTHER ==
[2017-09-01] MEDS ORDERED: methylPREDNISolone SOD SUCCI 125 MG/2 ML VIAL IV STA (21:17)
[2017-09-01] MEDS ORDERED: diphenhydrAMINE 50 MG/ML 1 ML VIAL IVP STA (21:17)
--- NOTE | 2017-09-01 21:24 | ED ---
Allergic Reaction HPI - General Chief complaint: Allergic Reaction Stated complaint: Allergic reaction (wasp sing) Time Seen by Provider: 09/01/17 21:04 Source: patient, RN notes reviewed, old records reviewed Mode of arrival: ambulatory Limitations: no limitations - History of Present Illness Initial Comments: 37 rolled female presents instructed that she will complain of ALLERGIC reaction. She reports that she was stung in the right great toe. She states that she used her EpiPen at home. She reports that she had no significant shortness of breath or throat closing symptoms at time. She states that out this time she's having heart racing symptoms. Patient states that she had socks on and she stepped on the bee. She reports no significant swelling to the toe or foot. - Related Data Home Medications Medication Instructions Recorded Confirmed Cyclobenzaprine [Flexeril] 10 mg PO HS 11/12/13 07/03/17 Dextroamphetamine/Amphetamine 30 mg PO BID 11/12/13 07/03/17 [Adderall] Propranolol [Inderal] 60 mg PO DAILY 11/12/13 07/03/17 Docusate Sodium [Colace] 100 mg PO BID 01/02/15 07/03/17 Esomeprazole Magnesium [NexIUM 20 mg PO DAILY 01/02/15 07/03/17 24Hr] Lisinopril [Prinivil] 10 mg PO DAILY 03/04/16 07/03/17 Pravastatin Sodium [Pravachol] 40 mg PO DAILY 10/15/16 07/03/17 Vortioxetine Hydrobromide 20 mg PO DAILY 10/15/16 07/03/17 [Trintellix] LORazepam [Ativan] 1 mg PO BID 12/24/16 07/03/17 LORazepam [Ativan] 0.5 mg PO W/LUNCH 01/09/17 07/03/17 Topiramate [Trokendi Xr] 125 mg PO HS 03/17/17 07/03/17 Gabapentin 600 mg PO TID 04/24/17 07/03/17 traZODone HCL [Desyrel] 100 mg PO HS 04/24/17 07/03/17 Albuterol Inhaler [Ventolin Hfa 2 puff INHALATION Q4H PRN 05/05/17 07/03/17 Inhaler] HYDROcodone/APAP 10-325MG [[place] 1 tab PO Q8HR PRN 07/03/17 07/03/17 10-325] Previous Rx's Medication Instructions Recorded Ziprasidone [Geodon] 60 mg PO BID #14 cap 01/05/15 diphenhydrAMINE [Benadryl] 25 mg PO BID PRN #20 capsule 09/01/17 predniSONE 20 mg PO BID #4 tab 09/01/17 Allergies Allergy/AdvReac Type Severity Reaction Status Date / Time bee venom protein (honey bee) Allergy Rash/Hives Verified 09/01/17 21:00 omeprazole Allergy Rash/Hives Verified 07/03/17 11:35 Review of Systems ROS Statement: Those systems with pertinent positive or pertinent negative responses have been documented in the HPI. ROS Other: All systems not noted in ROS Statement are negative. Past Medical History Past Medical History: COPD, GERD/Reflux, Hyperlipidemia, Hypertension, Sleep Apnea/CPAP/BIPAP Additional Past Medical History / Comment(s): hx migraines, ,has Nexplanon Implant, History of Any Multi-Drug Resistant Organisms: None Reported Additional Past Surgical History / Comment(s): sinus surgery, eye Past Anesthesia/Blood Transfusion Reactions: Motion Sickness Past Psychological History: Anxiety, Bipolar, Depression Smoking Status: Current every day smoker Past Alcohol Use History: None Reported Past Drug Use History: None Reported - Past Family History Mother Family Medical History: Cancer Additional Family Medical History / Comment(s): lymphoma Father Family Medical History: Hypertension General Exam - General Exam Comments Initial Comments: This is a 37-year-old female. Alert and oriented. No acute distress. Limitations: no limitations General appearance: alert, in no apparent distress Head exam: Present: atraumatic, normocephalic, normal inspection Eye exam: Present: normal appearance, PERRL, EOMI. Absent: scleral icterus, conjunctival injection, periorbital swelling ENT exam: Present: normal exam, mucous membranes moist Neck exam: Present: normal inspection. Absent: tenderness, meningismus, lymphadenopathy Respiratory exam: Present: normal lung sounds bilaterally. Absent: respiratory distress, wheezes, rales, rhonchi, stridor Cardiovascular Exam: Present: regular rate, normal rhythm, normal heart sounds. Absent: systolic murmur, diastolic murmur, rubs, gallop, clicks GI/Abdominal exam: Present: soft, normal bowel sounds. Absent: distended, tenderness, guarding, rebound, rigid Extremities exam: Present: normal inspection, full ROM, normal capillary refill , other (Right great toe appears normal. No evidence of stinger. No swelling.) . Absent: tenderness, pedal edema, joint swelling, calf tenderness Back exam: Present: normal inspection Neurological exam: Present: alert, oriented X3, CN II-XII intact Psychiatric exam: Present: normal affect, normal mood Course Vital Signs 09/01/17 20:56 Temperature 98.1 F Pulse Rate 83 Respiratory 16 Rate Blood Pressure 144/98 O2 Sat by Pulse 99 Oximetry Medical Decision Making - Medical Decision Making 37-year-old female. Alert and oriented. No acute distress, presents after using her EpiPen due to ALLERGIC reaction. She stepped on a bee. She states that she took some Benadryl as well. When I arrived in the room Patient had an IV are established. Patient will be given IV Solu-Medrol and Benadryl. Her foot does not appear to be swollen. No evidence of stinger. Her lungs are clear and station. Heart rate was within normal limits. We'll monitor the Patient receiving Reyes oral Benadryl. We'll discharge with 1 day of prednisone. Patient is history plan will comply. Return parameters were discussed. Disposition Clinical Impression: Allergic reaction to bee sting Disposition: HOME SELF-CARE Condition: Good Instructions: General Allergic Reaction (ED) Additional Instructions: She is advised use steroids for the next 2 days and use Benadryl. Return to the emergency department if any alarming signs or symptoms occur. Prescriptions: diphenhydrAMINE [Benadryl] 25 mg PO BID PRN #20 capsule PRN Reason: Itching predniSONE 20 mg PO BID #4 tab Is patient prescribed a controlled substance at d/c from ED?: No When asked, does pt state using other controlled substances?: No If prescribed controlled substance>3 days was MAPS reviewed?: No If opioid is for acute pain is fill amount 7 days or less?: No If Rx opioid, was Start Talking consent form obtained?: No Referrals: Tiarra Jimenez MD [Primary Care Provider] - 1-2 days Time of Disposition: 21:21
[2017-09-01 22:03] VITALS: BP 145/88; PULSE 88; RESP 16; TEMP 98.8
== END 2017-09-01 22:03 | disposition home or self-care (01) ==
LOC: EC 20:39
DX: T63.441A Toxic effect of venom of bees, accidental (unintentional), initial encounter (principal); J44.9 Chronic obstructive pulmonary disease, unspecified; K21.9 Gastro-esophageal reflux disease without esophagitis; E78.5 Hyperlipidemia, unspecified; I10 Essential (primary) hypertension; G47.30 Sleep apnea, unspecified; F41.9 Anxiety disorder, unspecified; F31.9 Bipolar disorder, unspecified; F17.200 Nicotine dependence, unspecified, uncomplicated; Z99.89 Dependence on other enabling machines and devices; Z79.899 Other long term (current) drug therapy; Z88.8 Allergy status to other drugs, medicaments and biological substances; Z91.030 Bee allergy status
CPT/HCPCS: 99283; 96374; 96375; J1200; J2930

== ENCOUNTER → 2017-12-23 | Outpatient (CLI) | payer OTHER ==
[2017-12-23 13:13] VITALS: BP 126/85; PULSE 104; RESP 18
--- NOTE | 2017-12-24 10:05 | P.PAINPG ---
Subjective Progress Note Date: 12/23/17 This is follow-up visit for this patient with a history of severe and chronic low back pain secondary to lumbar degenerative disc disease, lumbar facet arthropathy, We have done an interventional pain procedure radiofrequency ablation medial branch lumbar area 6 months ago, and she gets good pain relief , recently she started complaining of severe low back pain The patient currently on Percocet 10/325 every 8 hours Neurontin 600 mg 3 times a day Flexeril 10 mg daily at bedtime (prescription refills from her primary care ) Patient denies any side effect of the medication , patient denies any excessive drowsiness or sleepiness, patient denies any suicidal ideation, Patient reported that the current medication is helping to control the pain and improve the activity of daily livings, Patient denies any motor or sensory deficit, denies any change in the bowel movement or urination, patient denies any fever or night sweats. Objective - Vital Signs Vital signs: Vital Signs Temp Pulse 104 H 12/23/17 13:08 Resp 18 12/23/17 13:08 BP 126/85 12/23/17 13:08 Pulse Ox 97 12/23/17 13:08 Intake & Output 12/23/17 12/24/17 12/24/17 18:59 06:59 18:59 Weight 122.47 kg - Exam Physical Examinations : 1-Constitutiona : Cooperative , not in acute distress . 2-HEENT : nech ; supple , no Lymphadenopathy , normal thyroid size . eyes : no ptosis , no icterus , no photophobia . ENT : normal of hearing , normal oropharynx , no Thrush . 3- Respiratory : Chest clear to auscultations Bilaterally , no wheezing , no Rhonchi . 4- Cardiovascular : regular rate and rhythem , S1 , S2 , no S3 , no S4. 5- Gastrointestinal : abdomen soft no tenderness , bowel sounds , no organomegally . 6- Genitourinary : Defferred . 7- neurologic : Cranial nerve II to XII intact , no focal neurological deffecit . 8-psychatric : alert , oriented X 3 , appropriate affect , intact judgment and insight . 9-Lymphatic : no Lymphadenopathy . 10- musculoskeltal : Lumber spine moter stegnth lower extremities ,thigh and legs 5/5 Right side , 5/5 Left side deep tendon reflexes : normal Knee Jerk , normal ankle Jerk positive lumber facet Loading Test Range of motion of the lumbar spine Flexion 30 degrees, extension 10 degrees strait leg raising test , positive at 45 degree Fabere test positive RT and positive LT . Assessment and Plan Plan: Assessment and plan= chronic low back pain secondary to lumbar degenerative disc disease , lumbar spondylosis with lumbar facet arthropathy . Patient had good pain relief for 6 months after the radiofrequency ablation of the medial branch lumbar area, recently she started complaining of severe low back pain patient will be scheduled to have repeat radiofrequency ablation of the medial branch lumbar area, we will schedule her to have the right side first at L3/L4 5/L5-S1 then later on we will do the left side, procedure risk and benefits and alternatives discussed with the patient she agreed with the preceding. , PQRS Measure Charge Sheet Measure #130: Documentation of Current Meds in Medical Chart: Patient's medications documented in chart Measure #226: Tobacco Use: Screen & Cessation Intervention: Pt not a tobacco user Measure #111: Pneumonia Vaccination: Pneumococcal vaccine NOT administered or previously given Measure #47: Advance Care Plan: Advance care planning discussed & documented, pt chose/unable to give Measure #412: Opioid Treatment Agreement: No documentation of signed opioid treatment agreement Measure #408: Opioid Therapy Follow-up Evaluation: Patient had NO f/u eval minimum every 3 months during opioid therapy Measure #317: Preventitive Care & Scrn High Bld Press & F/U: Normal blood pressure, f/u not required Measure #128: Body Mass Index (BMI) Screening & Follow-up: BMI documented BELOW normal parameters - f/u documented Measure #131: Pain Assessment & Follow-up: Pain positive & plan documented, Follow-up scheduled Measure #431: Unhealthy Alcohol Use Preventative Care & Scrn: Patient not identified as an unhealthy alcohol user PQRS Narrative: Smoking Status Former smoker Do You Want the Pneumonia No Vaccine AT THIS TIME? Blood Pressure 126/85 Pain Intensity [Lower Back] 7 Scale Used Numeric (1 - 10) Hx Alcohol Use (MH) No Home Medications: Ambulatory Orders Cyclobenzaprine [Flexeril] 10 mg PO HS 11/12/13 Dextroamphetamine/Amphetamine [Adderall] 30 mg PO BID 11/12/13 Propranolol [Inderal] 60 mg PO DAILY 11/12/13 Docusate Sodium [Colace] 100 mg PO BID 01/02/15 Esomeprazole Magnesium [NexIUM 24Hr] 20 mg PO DAILY 01/02/15 Ziprasidone [Geodon] 60 mg PO BID #14 cap 01/05/15 Lisinopril [Prinivil] 10 mg PO DAILY 03/04/16 Pravastatin Sodium [Pravachol] 40 mg PO DAILY 10/15/16 Vortioxetine Hydrobromide [Trintellix] 20 mg PO DAILY 10/15/16 Topiramate [Trokendi Xr] 150 mg PO HS 03/17/17 Gabapentin 600 mg PO TID 04/24/17 traZODone HCL [Desyrel] 100 mg PO HS 04/24/17 Albuterol Inhaler [Ventolin Hfa Inhaler] 2 puff INHALATION Q4H PRN 05/05/17 HYDROcodone/APAP 10-325MG [[place] 10-325] 1 tab PO Q8HR PRN 07/03/17 diphenhydrAMINE [Benadryl] 25 mg PO BID PRN #20 capsule 09/01/17 Budesonide-Formot 160-4.5 Mcg [Symbicort 160-4.5 Mcg Inhaler] INHALATION BID Diazepam [Valium] 5 mg PO TID 12/23/17 Controlled Substance Measures - Controlled Substance Measures Is patient prescribed a controlled substance at discharge?: No When asked, does pt state using other controlled substances?: No If prescribed controlled substance>3 days was MAPS reviewed?: No If Rx opioid, was Start Talking consent form obtained?: No If opioid is for acute pain is fill amount 7 days or less?: No Was information provided regarding opioid addiction?: No
== END | disposition home or self-care (01) ==
LOC: PNWHC3 12:28
PROVIDERS: ATTEND Specialist
DX: G89.29 Other chronic pain (principal); M54.5 Low back pain; M51.36 Other intervertebral disc degeneration, lumbar region; M47.816 Spondylosis without myelopathy or radiculopathy, lumbar region; M46.86 Other specified inflammatory spondylopathies, lumbar region; Z98.890 Other specified postprocedural states; Z79.891 Long term (current) use of opiate analgesic; Z87.891 Personal history of nicotine dependence
CPT/HCPCS: 99211

== ENCOUNTER → 2018-01-05 | Outpatient (CLI) | payer OTHER ==
--- NOTE | 2018-01-05 16:21 | XR ---
Lumbosacral spine HISTORY: Low back pain 5 views of the lumbosacral spine correlated to prior exam 12/24/2010 There is no significant interval change. Lumbar vertebral bodies show stable height, alignment, and b one mineralization. There is no evident spondylolysis. Disc spaces again reduced at L5-S1 with associ ated vacuum phenomenon, spondylosis is present at multiple levels. Sclerosis present in the posterior elements of the lower lumbar spine. IMPRESSION: Degenerative disc disease and facet arthropathy similar to prior exam.
== END ==
LOC: RADXRMAIN 14:49
PROVIDERS: ATTEND Physical Medicine & Rehabilitation
DX: M51.37 Other intervertebral disc degeneration, lumbosacral region (principal); M46.97 Unspecified inflammatory spondylopathy, lumbosacral region
CPT/HCPCS: 72110

== ENCOUNTER → 2018-01-07 | Day surgery (SDC) | payer OTHER ==
[2018-01-01 13:56] VITALS: BMI 46.3
[~2018-01-07] MED LIST changes: +LACTATED RINGERS 1,000 ML IV ONE; +LIDOCAINE 1% 20 ML VIAL (10MG/ML) FOR IV START INTRADERMA ONE
[2018-01-07 10:18] VITALS: RESP 16; TEMP 98.6
--- NOTE | 2018-01-07 10:44 | P.PCN ---
Date of Procedure: 01/07/18 Surgeon: Rich Zurita Description of Procedure: Procedure(s) Performed: PREOPERATIVE DIAGNOSIS: Right lumbar spondylosis POSTOPERATIVE DIAGNOSIS: PROCEDURES: Right lumbar L4, L5, sacral ala Radiofrequency ablation with fluoroscopic guidance SURGEON: Rich Zurita MD. ANESTHESIA: Moderate sedation with intravenous versed 2 mg and fentanyl 100 mcg and local infiltration with lidocaine 1% 4 ml EBL: Minimal PROCEDURE INDICATION: The patient with low back pain secondary to lumbar facet arthropathy who had more than 50% relief of pain with previous diagnostic lumbar medial branch block with bupivacaine. PROCEDURE DESCRIPTION / TECHNIQUE: The patient was seen and identified in the preoperative area. Risks, benefits, complications, including but not limited to risk of infection ,bleeding , allergic reactions to the medications and incomplete pain relief , and alternatives were discussed with the patient, the patient agreed to proceed with the procedure and signed the consent. IV was started. The operative site was marked. Patient was taken to the OR and time out was completed. The patient was placed in the prone position on the procedure table. The lumber area was prepped and draped in the usual sterile fashion. . Vital signs were closely monitored during the procedure .IV sedation was used during the procedure to decrease patients anxiety. Using AP and then oblique fluoroscopy, the ``eye of the Jorge dog corresponding to the connection between the superior and transverse articular processes of the above-mentioned levels were identified, marked, and localized with 1% lidocaine. Subsequently, a 20 [id number] radiofrequency cannula with a 10-mm active tip was advanced guided by fluoroscopy to each of the ``eyes of the Jorge dog at each site then underwent sensory testing at 50 Hz and 0 to 1 volt and motor testing at 2.5 Hz and 0 to 3 volt with local stimulation, but no radicular symptoms down the legs. Then the sites underwent radiofrequency thermocoagulation at 80 degrees celsius for 90 seconds after injecting 0.5 ml of PF lidocaine 1%. then After the thermocoagulation done , 1 ml of the block solution containing Kenalog 40 mg and 4 ml of marcaine 0.5% was injected in divided doses at each levels after negative aspiration of CSF and blood and with no paresthesias. Sterile dressings were applied. COMPLICATIONS: No acute complications. DISPOSITION / PLANS: The patient was placed in a supine position and transferred to the recovery area in a stable condition for observation and was discharged from the recovery room after meeting discharge criteria. Home discharge instructions given to the patient by the staff. The patient was reexamined prior to discharge. She will follow-up in the clinic on an as- needed basis..
[2018-01-07 11:21] VITALS: BP 119/73; PULSE 76
--- NOTE | 2018-01-07 12:31 | FL ---
Fluoroscopy INDICATION: Pain FINDINGS: Fluoroscopy time: 2 seconds. Images obtained: 1. IMPRESSIONS: 1. Documentation of fluoroscopy.
== END | disposition home or self-care (01) ==
LOC: ORPAIN 09:36
PROVIDERS: ATTEND Pain Medicine Pain Medicine
DX: M47.816 Spondylosis without myelopathy or radiculopathy, lumbar region (principal); G89.29 Other chronic pain; Z79.899 Other long term (current) drug therapy; M51.36 Other intervertebral disc degeneration, lumbar region
CPT/HCPCS: 81025; 64635; 64636; J2250; J3301; J3010; 99152

== ENCOUNTER → 2018-01-15 | Outpatient (CLI) | payer OTHER ==
--- NOTE | 2018-01-15 14:43 | XR ---
EXAMINATION TYPE: XR knee complete LT DATE OF EXAM: 01/15/2018 CLINICAL HISTORY: Left rib pain with no known injury TECHNIQUE: Three views of the left knee are obtained. COMPARISON: None. FINDINGS: There is no acute fracture/dislocation evident in left knee. The tri-compartment joint sp aces appear within normal limits. The overlying soft tissue appears unremarkable. Fabella is inciden tally noted. IMPRESSION: There is no acute fracture or dislocation in the left knee.
== END | disposition home or self-care (01) ==
LOC: RADXRMAIN 13:04
PROVIDERS: ATTEND Physical Medicine & Rehabilitation
DX: M25.562 Pain in left knee (principal)

== ENCOUNTER → 2018-02-02 | Day surgery (SDC) | payer OTHER ==
[~2018-02-02] MED LIST changes: -LACTATED RINGERS 1,000 ML IV ONE; -LACTATED RINGERS 1,000 ML IV SCH; -LIDOCAINE 1% 20 ML VIAL (10MG/ML) FOR IV START INTRADERMA ONE; +SODIUM CHLORIDE 0.9% 250 ML IV ONE
[2018-02-02 09:49] VITALS: RESP 20; TEMP 98.1
--- NOTE | 2018-02-02 10:04 | P.PCN ---
Date of Procedure: 02/02/18 Procedure(s) Performed: PREOPERATIVE DIAGNOSIS: 1-Lumbar Spondylosis with Facet Arthropathy without myelopathy. POSTOPERATIVE DIAGNOSIS: 1- Lumbar Spondylosis with Facet Arthropathy without myelopathy. PROCEDURES : Left Radiofrequency thermocoagulation, L3-L4, L4-L5, and L5-S1 medial branch, with fluoroscopic guidance ANESTHESIA: Moderate sedation with intravenous versed 2 mg and fentaneyl 150 mcg, and local infiltration with Ropivacaine 0.5 % . EBL: Minimal PROCEDURE INDICATION: The patient with low back pain secondary to lumbar facet arthropathy who had more than 50% relief of her pain with previous diagnostic lumbar medial branch block with bupivacaine. PROCEDURE DESCRIPTION / TECHNIQUE: The patient was seen and identified in the preoperative area. Risks, benefits, complications, including but not limited to risk of infection ,bleeding , allergic reactions to the medications and no complete pain releife , and alternatives were discussed with the patient, the patient agreed to proceed with the procedure and signed the consent. IV was started. Vital signs remained stable throughout the procedure. Patient was taken to the OR and time out was completed. The patient was placed in the prone position on the procedure table. The lumber area was prepped and draped in the usual sterile fashion. . Vital signs were closely monitored during the procedure .IV sedation was used during the procedure to decrease patients anxiety. Using AP and then oblique fluoroscopy, the ``eye of the Jorge dog corresponding to the connection between the superior and transverse articular processes of Lefty L3, L4, and L5 were identified, marked, and localized with 1% lidocaine. Subsequently, a 18 -ej radiofrequency cannula with a 10- mm active tip was advanced guided by fluoroscopy to each of the ``eyes of the Jorge dog at Left L3, L4, and L5. Each site then underwent sensory testing at 50 Hz and 0 to 1 volt and motor testing at 2.5 Hz and 0 to 3 volt with local stimulation, but no radicular symptoms down the legs. Thereafter the Left L3-4, L4-5, and L5-S1 sites underwent radiofrequency thermocoagulation at 80 degrees celsius for 90 seconds after injecting 0.5 ml of PF Ropivacaine 1ml , then After the thermocoagulation done , 1 ml of the block solution containing Kenalog 40 mg and 3 ml of Ropivacaine 0.5% was injected at the Left L3-4 , L4 -5 , and L5-S1, levels after negative aspiration of CSF and blood and with no paresthesias. Cannulas were retracted while injecting lidocaine 1% until the needle is out. at the end of the procedure, the skin was cleansed and bandages were applied. COMPLICATIONS: No acute complications. DISPOSITION / PLANS: The patient was placed in a supine position and transferred to the recovery area in a stable condition for observation and was discharged from the recovery room after meeting discharge criteria. Home discharge instructions given to the patient by the staff. The patient was reexamined prior to discharge. The patient will schedule a follow up in the clinic in 2-4 weeks.
--- NOTE | 2018-02-02 10:13 | FL ---
Fluoroscopy HISTORY: Pain 17 seconds fluoroscopy time supplied to the referring clinician. 3 intraoperative C-arm images docum ent the procedure. See dictated report from anesthesia.
[2018-02-02 10:47] VITALS: BP 122/75; PULSE 88
== END | disposition home or self-care (01) ==
LOC: ORPAIN 09:02
PROVIDERS: ATTEND Specialist
DX: M47.816 Spondylosis without myelopathy or radiculopathy, lumbar region (principal); I10 Essential (primary) hypertension; J44.9 Chronic obstructive pulmonary disease, unspecified; G47.33 Obstructive sleep apnea (adult) (pediatric); Z88.8 Allergy status to other drugs, medicaments and biological substances; Z88.6 Allergy status to analgesic agent
CPT/HCPCS: 81025; 64635; 64636 ×2; J2250; J3301; J3010; 99152

== ENCOUNTER → 2018-02-24 | Outpatient (CLI) | payer OTHER ==
[2018-02-24 12:30] VITALS: BP 134/92; PULSE 90; RESP 18
--- NOTE | 2018-02-24 12:39 | P.PAINPG ---
Subjective Progress Note Date: 02/24/18 Principal diagnosis: Lumbar spondylosis This is a very pleasant 37 showed woman with a history of intractable low back pain. She is undergone previous diagnostic lumbar medial branch nerve blocks as well as radio figures he ablation. She reports her pain today as a 3 and scale 0-10. This demonstrates a substantial reduction in her chronic pain levels. She also complains of bilateral knee pain today. This has not been evaluated at this point time. She is going to schedule appointment to see her primary care physician. She denies any new symptoms with regard to her back pain. Previously, when she had radio frequency ablation performed, it gave her 6 months of good relief. Objective - Vital Signs Vital signs: Vital Signs Temp Pulse 90 02/24/18 12:14 Resp 18 02/24/18 12:14 BP 134/92 02/24/18 12:14 Pulse Ox 95 02/24/18 12:14 Intake & Output 02/23/18 02/24/18 02/24/18 18:59 06:59 18:59 Weight 126.099 kg - Exam General: The patient is alert and oriented. Patient is not sedated Patient answers all question appropriately. Cardiac: Heart is regular in rate and rhythm Respiratory: Clear to auscultation. No audible wheezes. Abdomen: Soft nontender nondistended. Lower extremities: Strength is normal bilaterally. Sensation is normal bilaterally. Reflexes are preserved and symmetric bilaterally. Straight leg raise is negative bilaterally. Assessment and Plan (1) Spondylosis of lumbar region without myelopathy or radiculopathy Current Visit: Yes Status: Acute Code(s): M47.816 - SPONDYLOSIS W/O MYELOPATHY OR RADICULOPATHY, LUMBAR REGION SNOMED Code(s): 70683351 Plan: Plan of Care 1. Medications: Patient is not being prescribed any medications for her pain from this clinic. I would strongly recommend that she pursue non-opiate modalities to treat her pain. 2. Interventions: Patient will call our clinic to schedule repeat of lumbar radio Ree ablation on an as-needed basis. 3. Referrals: Patient is referred back to her primary care physician for evaluation of her knee pain. 4. Testing: None 5. Follow-up: Repeat of lumbar radio frequency ablation PQRS Measure Charge Sheet Measure #130: Documentation of Current Meds in Medical Chart: Patient not eligible for medications to be documented Measure #226: Tobacco Use: Screen & Cessation Intervention: Pt screened for tobacco use AND intervention given Measure #111: Pneumonia Vaccination: Pneumococcal vaccine NOT administered or previously given Measure #47: Advance Care Plan: Advance care planning discussed & documented, pt chose/unable to give Measure #412: Opioid Treatment Agreement: No documentation of signed opioid treatment agreement Measure #408: Opioid Therapy Follow-up Evaluation: Patient had NO f/u eval minimum every 3 months during opioid therapy Measure #317: Preventitive Care & Scrn High Bld Press & F/U: Pre-hypertensive or hypertensive BP documented, pt will f/u with PCP Measure #128: Body Mass Index (BMI) Screening & Follow-up: BMI documented ABOVE normal parameters - f/u documented Measure #131: Pain Assessment & Follow-up: Pain positive & plan documented Measure #431: Unhealthy Alcohol Use Preventative Care & Scrn: Patient not identified as an unhealthy alcohol user PQRS Narrative: Smoking Status Former smoker Do You Want the Pneumonia No Vaccine AT THIS TIME? Blood Pressure 134/92 Pain Intensity [Left Knee] 5 Pain Intensity [Lower Back] 3 Hx Alcohol Use (MH) No Home Medications: Ambulatory Orders Cyclobenzaprine [Flexeril] 10 mg PO HS 11/12/13 Dextroamphetamine/Amphetamine [Adderall] 30 mg PO BID 11/12/13 Propranolol [Inderal] 60 mg PO DAILY 11/12/13 Docusate Sodium [Colace] 100 mg PO BID 01/02/15 Esomeprazole Magnesium [NexIUM 24Hr] 20 mg PO DAILY 01/02/15 Ziprasidone [Geodon] 60 mg PO BID #14 cap 01/05/15 Lisinopril [Prinivil] 10 mg PO DAILY 03/04/16 Pravastatin Sodium [Pravachol] 40 mg PO DAILY 10/15/16 Vortioxetine Hydrobromide [Trintellix] 20 mg PO DAILY 10/15/16 Gabapentin 600 mg PO TID 04/24/17 Albuterol Inhaler [Ventolin Hfa Inhaler] 2 puff INHALATION BID 05/05/17 Diazepam [Valium] 5 mg PO 0800,2200 12/23/17 Diazepam [Valium] 10 mg PO 1500 01/22/18 diphenhydrAMINE [Benadryl] 25 mg PO BID PRN 01/22/18 oxyCODONE-APAP 10-325MG [Percocet 10-325 mg] 1 tab PO Q6HR PRN 01/30/18 OXcarbazepine [Trileptal] 150 mg PO DAILY 02/02/18 Fluticasone/Salmeterol [Fluticasone-Salmeterol 113-14] 1 puff INHALATION BID Zolpidem [Ambien] 5 mg PO HS 02/24/18 Controlled Substance Measures - Controlled Substance Measures Is patient prescribed a controlled substance at discharge?: No
== END ==
LOC: PNWHC3 12:00
PROVIDERS: ATTEND Pain Medicine Pain Medicine
DX: M47.816 Spondylosis without myelopathy or radiculopathy, lumbar region (principal); Z87.891 Personal history of nicotine dependence; Z79.899 Other long term (current) drug therapy
CPT/HCPCS: 99211

== ENCOUNTER → 2018-06-25 | Outpatient (CLI) | payer OTHER ==
[2018-06-25 19:04] LABS: T4, Free (Free Thyroxine) 1.1 ng/dL (0.80-1.80)
== END | disposition home or self-care (01) ==
LOC: LABWHC1 10:42
PROVIDERS: ATTEND Psychiatry & Neurology Neurology
DX: G43.009 Migraine without aura, not intractable, without status migrainosus (principal); R25.1 Tremor, unspecified
CPT/HCPCS: 36415; 80183; 84295; 84439; 84443

== ENCOUNTER → 2018-08-03 | Outpatient (CLI) | payer OTHER ==
--- NOTE | 2018-08-03 12:53 | P.PN ---
Subjective Progress Note Date: 08/03/18 This is a 38-year-old morbidly obese female with history of chronic lower back pain which responded favorably to lumbar medial branch RFA previously. The patient receives oral opioids from Dr. Douglass for her pain. She denies any new neurologic changes since last time we saw her. Today, pt denies new-onset weakness, bowel/bladder incontinence, or any other signs or symptoms of cauda equina syndrome. There are no signs of acute intoxication, and no indications of medication diversion or overuse. In addition to above, 13-point review of systems is also negative for chest pain, shortness of breath, changes in vision, changes in hearing, new onset weakness, abdominal pain, diarrhea, extreme fatigue, malaise, fever, skin changes, homicidal or suicidal ideation, or bowel or bladder incontinence. Vital Signs: Reviewed in EMR Gen: AAOx3, NAD HEENT: PERRLA,hearing grossly normal Pulm: resp unlabored,CTA Heart:S1,S2, No Mur Neck: supple, trachea midline Neuro exam of the lower extremities: Normal muscle strength bilaterally, decreased knee reflex bilaterally and symmetrically, absent ankle reflexes bilaterally and symmetrically. Facet loading test: Positive bilaterally Tenderness in the paravertebral musculature: Positive bilaterally Neuro: CN II-XII grossly intact, Imaging: Reviewed in EMR/chart Assessment: Lumbar spondylosis without myelopathy Morbid obesity Opioid dependence Plan: 1. Explanation: Opioid and psychological risk scores were reviewed. Diagnoses, prognoses, and multiple treatment options including but not limited to physical therapy, interventional therapies, adjuvant medical therapies, narcotic medication therapies, and surgery were discussed with the patient and all questions were answered to the patient's satisfaction. 2. Opioid agreement: The patient receives opioids from Dr. Douglass not from our clinic 3. Counseling: The patient was counseled extensively on SMOKING CESSATION, BODY MASS INDEX, EXERCISE. Specifically, the patient was instructed regarding the importance of smoking cessation, obesity, and exercise in the context of both chronic pain and overall health. 4. Procedures: Scheduled for right lumbar medial branch RFA under fluoroscopic guidance for levels L3 4, L4-L5, L5-S1 . And then we will schedule her for the left side to be done a few weeks after. 5. Consultations: None 6. Investigations: None 7. Medications: None of Marcaine 8. Disposition: Return to the above-mentioned procedure as soon as possible 9. Maps were reviewed and were appropriate. PQRS measures: 1-Patient's medications are documented in the chart. 2-Tobacco use is negative, counseling given 3-Patient has not had a pneumococcal vaccine. 4-Advanced care planning discussed, patient unable to give 5-Opioid contract signed with the patient. 6-Pain positive, follow-up visit or procedure scheduled 7-Patient's blood pressure measured and documented within normal limits. The patient will follow up with his primary care physician. 8-Patient's weight was measured, and body mass index ABOVE the normal limits, and counseling was done. Patient instructed to follow up with PCP. 9-Patient WAS NOT identified as an unhealthy alcohol user. Objective - Vital Signs Vital signs: Intake & Output 08/02/18 08/03/18 08/03/18 18:59 06:59 18:59 Weight 124.738 kg
[2018-08-03 13:38] VITALS: BP 118/93; PULSE 82; RESP 16
== END ==
LOC: PNWHC3 12:27
PROVIDERS: ATTEND Anesthesiology
DX: M47.816 Spondylosis without myelopathy or radiculopathy, lumbar region (principal); E66.01 Morbid (severe) obesity due to excess calories; Z79.891 Long term (current) use of opiate analgesic; Z71.6 Tobacco abuse counseling; Z68.42 Body mass index [BMI] 45.0-49.9, adult
CPT/HCPCS: 99211

== ENCOUNTER 2018-08-20 09:42 | Day surgery (SDC) | payer OTHER ==
[2018-08-20] MEDS ORDERED: LACTATED RINGERS 1,000 ML IV SCH (09:45)
[2018-08-20 09:52] VITALS: RESP 16; TEMP 96
[2018-08-20] MEDS ORDERED: LIDOCAINE 1% 20 ML VIAL (10MG/ML) FOR IV START INTRADERMA ONE (09:58)
--- NOTE | 2018-08-20 10:52 | FL ---
EXAMINATION TYPE: FL guided pain mgmt statistic DATE OF EXAM: 08/20/2018 FLUOROSCOPY Fluoroscopy time of 34 seconds was used during lumbar radiofrequency ablation. 1 image/s document/s the procedure.
[2018-08-20 11:02] VITALS: BP 122/85; PULSE 85
--- NOTE | 2018-08-20 11:26 | P.PCN ---
Date of Procedure: 08/20/18 Description of Procedure: PREOPERATIVE DIAGNOSIS: Lumbar spondylosis without myelopathy POSTOPERATIVE DIAGNOSIS: Lumbar spondylosis without myelopathy PROCEDURES : Right Radiofrequency thermocoagulation,L2-4, L3-L4, L4-L5, and L5- S1 medial branch, with fluoroscopic guidance ANESTHESIA: IV moderate conscious sedation with local anesthesia and 3 mg IV Versed and 200 mcq IV fentanyl EBL: Minimal PROCEDURE INDICATION: The patient with low back pain secondary to lumbar facet arthropathy who had more than 50% relief of her pain with previous diagnostic lumbar medial branch block with bupivacaine. PROCEDURE DESCRIPTION / TECHNIQUE: The patient was seen and identified in the preoperative area. Risks, benefits, complications, including but not limited to risk of infection ,bleeding , allergic reactions to the medications and no complete pain releife , and alternatives were discussed with the patient, the patient agreed to proceed with the procedure and signed the consent. IV was started. Vital signs remained stable throughout the procedure. Patient was taken to the OR and time out was completed. The patient was placed in the prone position on the procedure table. The lumber area was prepped and draped in the usual sterile fashion. . Vital signs were closely monitored during the procedure .IV sedation was used during the procedure to decrease patients anxiety. The target points were identified as follows: For the L5-S1 level which corresponds to the dorsal ramus of L5 the target point was at the superior medial aspect of the sacral ala on the rt side of the spine on the AP view of fluoroscopy and for the L2, L3, and L4 medial branches the target points were at the connection between the transverse process and the superior articular process of L3, L4, and L5 vertebra respectively on the rt oblique view of fluoroscopy. skin was marked, and localized with 1% lidocaineat these points. Subsequently, an 18 [id number] radiofrequency needles with a 10-mm curved active tips were advanced guided by fluoroscopy to each of the target points mentioned above in a superior medial direction to get the active tips as parallel as possible to the medial branches tracks. AP, oblique, and lateral views of fluoroscopy were used to verify needle tips position. Each level then underwent motor testing at 2.5 Hz and 0 to 3 volt with local stimulation, but no radicular symptoms down the legs. Thereafter radiofrequency thermocoagulation at 80 degrees celsius for 90 seconds after injecting 1 ml of PF Marcaine 0.5%(3 mls) with 40 mg of Kenalog. At the end of the procedure, the skin was cleansed and bandages were applied. COMPLICATIONS: No acute complications. DISPOSITION / PLANS: The patient was placed in a supine position and transferred to the recovery area in a stable condition for observation and was discharged from the recovery room after meeting discharge criteria. Home discharge instructions given to the patient by the staff. The patient was reexamined prior to discharge. The patient will schedule for left radio frequency ablation
== END 2018-08-20 11:20 | disposition home or self-care (01) ==
LOC: ORPAIN 09:42
PROVIDERS: ATTEND Anesthesiology
DX: G89.29 Other chronic pain (principal); M47.816 Spondylosis without myelopathy or radiculopathy, lumbar region; Z79.891 Long term (current) use of opiate analgesic
CPT/HCPCS: 81025; 64635; 64636 ×3; J2250; J3301; J2001; J3010; 99152; 99153

== ENCOUNTER → 2018-09-03 | Day surgery (SDC) | payer OTHER ==
[2018-09-01 13:47] VITALS: BMI 45.3
[~2018-09-03] MED LIST changes: +IV FLUID CONTINUATION 1,000 ML IV ONE; +LACTATED RINGERS 1,000 ML IV ONE; +LACTATED RINGERS 1,000 ML IV SCH; -SODIUM CHLORIDE 0.9% 250 ML IV ONE
[2018-09-03 10:58] VITALS: RESP 18; TEMP 97.9
[2018-09-03 11:02] LABS: Glucose,Whole Blood 88 mg/dL (75-99)
--- NOTE | 2018-09-03 11:45 | P.PCN ---
Date of Procedure: 09/03/18 Procedure(s) Performed: PREOPERATIVE DIAGNOSIS: 1-Lumbar Spondylosis with Facet Arthropathy without myelopathy. POSTOPERATIVE DIAGNOSIS: 1- Lumbar Spondylosis with Facet Arthropathy without myelopathy. PROCEDURES : Left Radiofrequency thermocoagulation, L3-L4, L4-L5, and L5-S1 medial branch, with fluoroscopic guidance ANESTHESIA: Moderate sedation with intravenous versed 2 mg and fentaneyl 200 mcg, and local infiltration with Ropivacaine 0.5 % . EBL: Minimal PROCEDURE INDICATION: The patient with low back pain secondary to lumbar facet arthropathy who had more than 50% relief of her pain with previous diagnostic lumbar medial branch block with bupivacaine. PROCEDURE DESCRIPTION / TECHNIQUE: The patient was seen and identified in the preoperative area. Risks, benefits, complications, including but not limited to risk of infection ,bleeding , allergic reactions to the medications and no complete pain releife , and alternatives were discussed with the patient, the patient agreed to proceed with the procedure and signed the consent. IV was started. Vital signs remained stable throughout the procedure. Patient was taken to the OR and time out was completed. The patient was placed in the prone position on the procedure table. The lumber area was prepped and draped in the usual sterile fashion. . Vital signs were closely monitored during the procedure .IV sedation was used during the procedure to decrease patients anxiety. Using AP and then oblique fluoroscopy, the ``eye of the Jorge dog corresponding to the connection between the superior and transverse articular processes of Lefty L3, L4, and L5 were identified, marked, and localized with 1% lidocaine. Subsequently, a 18 [id number] radiofrequency cannula with a 10- mm active tip was advanced guided by fluoroscopy to each of the ``eyes of the Jorge dog at Left L3, L4, and L5. Each site then underwent sensory testing at 50 Hz and 0 to 1 volt and motor testing at 2.5 Hz and 0 to 3 volt with local stimulation, but no radicular symptoms down the legs. Thereafter the Left L3-4, L4-5, and L5-S1 sites underwent radiofrequency thermocoagulation at 80 degrees celsius for 90 seconds after injecting 0.5 ml of PF Ropivacaine 1ml , then After the thermocoagulation done , 1 ml of the block solution containing Depo-Medrol 40 mg and 3 ml of Ropivacaine 0.5% was injected at the Left L3-4 , L4-5 , and L5-S1, levels after negative aspiration of CSF and blood and with no paresthesias. Cannulas were retracted while injecting lidocaine 1% until the needle is out. at the end of the procedure, the skin was cleansed and bandages were applied. COMPLICATIONS: No acute complications. DISPOSITION / PLANS: The patient was placed in a supine position and transferred to the recovery area in a stable condition for observation and was discharged from the recovery room after meeting discharge criteria. Home discharge instructions given to the patient by the staff. The patient was reexamined prior to discharge. The patient will schedule a follow up in the clinic in 2-4 weeks.
[2018-09-03 12:10] VITALS: BP 132/89; PULSE 77
--- NOTE | 2018-09-03 13:19 | FL ---
EXAMINATION TYPE: FL guided pain mgmt statistic DATE OF EXAM: 09/03/2018 CLINICAL HISTORY: Low back pain. TECHNIQUE: Fluoroscopy. COMPARISON: None. FINDINGS: Fluoroscopic guidance was provided during pain relief procedure performed by Dr. Langley . A total of 25 seconds of fluoroscopic time was utilized during the procedure and 3 spot images are acquired. Images acquired shows needle localization at multiple levels within the lumbar spine. IMPRESSION: As Above.
== END | disposition home or self-care (01) ==
LOC: ORPAIN 10:03
PROVIDERS: ATTEND Specialist
DX: M47.816 Spondylosis without myelopathy or radiculopathy, lumbar region (principal); Z88.8 Allergy status to other drugs, medicaments and biological substances; Z91.030 Bee allergy status
CPT/HCPCS: 81025; 64635; 64636 ×2; J2250; J1030; J3010; 99152; 99153

== ENCOUNTER 2019-01-01 21:54 | Emergency (ER) | payer OTHER ==
--- NOTE | 2019-01-01 22:26 | ED ---
Psych HPI - General Chief Complaint: Psychiatric Symptoms Stated Complaint: overdose/valium Time Seen by Provider: 01/01/19 22:03 Source: patient Mode of arrival: ambulatory Limitations: no limitations - History of Present Illness Initial Comments: This patient is a 38-year-old woman with history of bipolar disorder who presents with complaint that she has been feeling very depressed and stressed over the past few weeks. She states that she has a lot of stress related to her child's psychiatric conditions and also additional family members in the house. The patient states that she just wanted TO stop so she started taking extra doses of Valium tonight. She took 2 and then 2 more and she took 2 more. Family became concerned and brought her here for evaluation. MD Complaint: feels depressed -: days(s) Quality: getting worse Improves With: none Worsens With: none Context: significant life stressor Associated Symptoms: denies other symptoms - Related Data Home Medications Medication Instructions Recorded Confirmed Cyclobenzaprine [Flexeril] 10 mg PO TID 11/12/13 01/01/19 Docusate Sodium [Colace] 100 mg PO BID 01/02/15 01/01/19 Esomeprazole Magnesium [NexIUM 20 mg PO DAILY 01/02/15 01/01/19 24Hr] Lisinopril [Prinivil] 10 mg PO DAILY 03/04/16 01/01/19 Pravastatin Sodium [Pravachol] 40 mg PO DAILY 10/15/16 01/01/19 Vortioxetine Hydrobromide 20 mg PO DAILY 10/15/16 01/01/19 [Trintellix] Albuterol Inhaler [Ventolin Hfa 2 puff INHALATION RT-BID PRN 05/05/17 01/01/19 Inhaler] Diazepam [Valium] 5 mg PO DAILY 12/23/17 01/01/19 Diazepam [Valium] 10 mg PO HS 01/22/18 01/01/19 diphenhydrAMINE [Benadryl] 25 mg PO BID PRN 01/22/18 01/01/19 oxyCODONE-APAP 10-325MG [Percocet 1 tab PO Q8H 01/30/18 01/01/19 10-325 mg] OXcarbazepine [Trileptal] 150 mg PO BID 02/02/18 01/01/19 Budesonide-Formot 160-4.5 Mcg 2 puff INHALATION RT-BID 08/03/18 01/01/19 [Symbicort 160-4.5 Mcg Inhaler] Dextroamphetamine/Amphetamine 20 mg PO BID 08/03/18 01/01/19 [Dextroamp-Amphetamin 20 mg Tab] Gabapentin [Neurontin] 400 mg PO TID 08/03/18 01/01/19 Propranolol HCl 60 mg PO DAILY 08/03/18 01/01/19 Ziprasidone [Geodon] 60 mg PO HS 08/03/18 01/01/19 Allergies Allergy/AdvReac Type Severity Reaction Status Date / Time bee venom protein (honey bee) Allergy Rash/Hives Verified 01/01/19 22:10 omeprazole Allergy Rash/Hives Verified 01/01/19 22:10 Review of Systems ROS Statement: Those systems with pertinent positive or pertinent negative responses have been documented in the HPI. ROS Other: All systems not noted in ROS Statement are negative. Constitutional: Denies: fever Respiratory: Denies: cough, dyspnea Cardiovascular: Denies: chest pain, palpitations Gastrointestinal: Denies: abdominal pain, vomiting, diarrhea Genitourinary: Denies: dysuria, frequency Musculoskeletal: Denies: back pain Neurological: Denies: headache, weakness, numbness Psychiatric: Reports: anxiety, depression, suicidal thoughts. Denies: auditory hallucinations, visual hallucinations, homicidal thoughts Past Medical History Past Medical History: COPD, GERD/Reflux, Hyperlipidemia, Hypertension, Sleep Apnea/CPAP/BIPAP Additional Past Medical History / Comment(s): hx migraines, ,has Nexplanon Implant History of Any Multi-Drug Resistant Organisms: None Reported Additional Past Surgical History / Comment(s): sinus surgery, eye Past Anesthesia/Blood Transfusion Reactions: Motion Sickness Past Psychological History: Anxiety, Bipolar, Depression Smoking Status: Former smoker Past Alcohol Use History: None Reported Past Drug Use History: None Reported - Past Family History Mother Family Medical History: Cancer Additional Family Medical History / Comment(s): lymphoma Father Family Medical History: Hypertension General Exam Limitations: no limitations General appearance: alert, anxious Head exam: Present: atraumatic, normocephalic Eye exam: Present: normal appearance. Absent: scleral icterus, conjunctival injection Respiratory exam: Present: normal lung sounds bilaterally. Absent: respiratory distress, wheezes, rales, rhonchi, stridor Cardiovascular Exam: Present: regular rate, normal rhythm, normal heart sounds. Absent: systolic murmur, diastolic murmur, rubs, gallop GI/Abdominal exam: Present: soft. Absent: distended, tenderness, guarding, makenzie ound, rigid Extremities exam: Present: normal inspection, normal capillary refill. Absent: pedal edema, calf tenderness Neurological exam: Present: alert, oriented X3 Psychiatric exam: Present: depressed, anxious, suicidal ideation. Absent: agitated, flat affect, manic, homicidal ideation Skin exam: Present: warm, dry, intact. Absent: rash Course Vital Signs 01/01/19 01/02/19 21:56 06:20 Temperature 98.6 F 98 F Pulse Rate 97 76 Respiratory 20 18 Rate Blood Pressure 118/76 132/78 O2 Sat by Pulse 100 95 Oximetry Medical Decision Making - Lab Data Result diagrams: 01/02/19 05:37 01/02/19 05:37 Lab Results 01/01/19 01/01/19 01/02/19 Range/Units 22:26 22:26 05:37 WBC (3.8-10.6) k/uL RBC (3.80-5.40) m/uL Hgb (11.4-16.0) gm/dL Hct (34.0-46.0) % MCV (80.0-100.0) fL MCH (25.0-35.0) pg MCHC (31.0-37.0) g/dL RDW (11.5-15.5) % Plt Count (150-450) k/uL Neutrophils % % Lymphocytes % % Monocytes % % Eosinophils % % Basophils % % Neutrophils # (1.3-7.7) k/uL Lymphocytes # (1.0-4.8) k/uL Monocytes # (0-1.0) k/uL Eosinophils # (0-0.7) k/uL Basophils # (0-0.2) k/uL Sodium 140 (137-145) mmol/L Potassium 4.4 (3.5-5.1) mmol/L Chloride 104 (98-107) mmol/L Carbon Dioxide 29 (22-30) mmol/L Anion Gap 7 mmol/L BUN 7 (7-17) mg/dL Creatinine 0.81 (0.52-1.04) mg/dL Est GFR (CKD-EPI)AfAm >90 (>60 ml/min/1.73 sqM) Est GFR (CKD-EPI)NonAf >90 (>60 ml/min/1.73 sqM) Glucose 93 (74-99) mg/dL Calcium 9.1 (8.4-10.2) mg/dL Total Bilirubin 0.4 (0.2-1.3) mg/dL AST 23 (14-36) U/L ALT 21 (9-52) U/L Alkaline Phosphatase 62 (38-126) U/L Total Protein 6.9 (6.3-8.2) g/dL Albumin 3.9 (3.5-5.0) g/dL Urine Color Colorless Urine Appearance Clear (Clear) Urine pH 6.5 (5.0-8.0) Ur Specific [place] 1.000 L (1.001-1.035) Urine Protein Negative (Negative) Urine Glucose (UA) Negative (Negative) Urine Ketones Negative (Negative) Urine Blood Negative (Negative) Urine Nitrite Negative (Negative) Urine Bilirubin Negative (Negative) Urine Urobilinogen <2.0 (<2.0) mg/dL Ur Leukocyte Esterase Trace H (Negative) Urine WBC <1 (0-5) /hpf Ur Squamous Epith Cells 1 (0-4) /hpf Urine Bacteria Rare H (None) /hpf Urine HCG, Qual Not Detected (Not Detectd) Salicylates <1.0 mg/dL Urine Opiates Screen Not Detected (NotDetected) Ur Oxycodone Screen Not Detected (NotDetected) Urine Methadone Screen Not Detected (NotDetected) Ur Propoxyphene Screen Not Detected (NotDetected) Acetaminophen <10.0 ug/mL Ur Barbiturates Screen Not Detected (NotDetected) U Tricyclic Antidepress Not Detected (NotDetected) Ur Phencyclidine Scrn Not Detected (NotDetected) Ur Amphetamines Screen Not Detected (NotDetected) U Methamphetamines Scrn Not Detected (NotDetected) U Benzodiazepines Scrn Detected H (NotDetected) Urine Cocaine Screen Not Detected (NotDetected) U Marijuana (THC) Screen Detected H (NotDetected) Serum Alcohol <10 mg/dL 01/02/19 Range/Units 05:37 WBC 8.6 (3.8-10.6) k/uL RBC 4.25 (3.80-5.40) m/uL Hgb 12.5 (11.4-16.0) gm/dL Hct 36.0 (34.0-46.0) % MCV 84.8 (80.0-100.0) fL MCH 29.5 (25.0-35.0) pg MCHC 34.8 (31.0-37.0) g/dL RDW 12.2 (11.5-15.5) % Plt Count 276 (150-450) k/uL Neutrophils % 49 % Lymphocytes % 42 % Monocytes % 5 % Eosinophils % 2 % Basophils % 1 % Neutrophils # 4.2 (1.3-7.7) k/uL Lymphocytes # 3.6 (1.0-4.8) k/uL Monocytes # 0.4 (0-1.0) k/uL Eosinophils # 0.2 (0-0.7) k/uL Basophils # 0.0 (0-0.2) k/uL Sodium (137-145) mmol/L Potassium (3.5-5.1) mmol/L Chloride (98-107) mmol/L Carbon Dioxide (22-30) mmol/L Anion Gap mmol/L BUN (7-17) mg/dL Creatinine (0.52-1.04) mg/dL Est GFR (CKD-EPI)AfAm (>60 ml/min/1.73 sqM) Est GFR (CKD-EPI)NonAf (>60 ml/min/1.73 sqM) Glucose (74-99) mg/dL Calcium (8.4-10.2) mg/dL Total Bilirubin (0.2-1.3) mg/dL AST (14-36) U/L ALT (9-52) U/L Alkaline Phosphatase (38-126) U/L Total Protein (6.3-8.2) g/dL Albumin (3.5-5.0) g/dL Urine Color Urine Appearance (Clear) Urine pH (5.0-8.0) Ur Specific [place] (1.001-1.035) Urine Protein (Negative) Urine Glucose (UA) (Negative) Urine Ketones (Negative) Urine Blood (Negative) Urine Nitrite (Negative) Urine Bilirubin (Negative) Urine Urobilinogen (<2.0) mg/dL Ur Leukocyte Esterase (Negative) Urine WBC (0-5) /hpf Ur Squamous Epith Cells (0-4) /hpf Urine Bacteria (None) /hpf Urine HCG, Qual (Not Detectd) Salicylates mg/dL Urine Opiates Screen (NotDetected) Ur Oxycodone Screen (NotDetected) Urine Methadone Screen (NotDetected) Ur Propoxyphene Screen (NotDetected) Acetaminophen ug/mL Ur Barbiturates Screen (NotDetected) U Tricyclic Antidepress (NotDetected) Ur Phencyclidine Scrn (NotDetected) Ur Amphetamines Screen (NotDetected) U Methamphetamines Scrn (NotDetected) U Benzodiazepines Scrn (NotDetected) Urine Cocaine Screen (NotDetected) U Marijuana (THC) Screen (NotDetected) Serum Alcohol mg/dL - EKG Data -: EKG Interpreted by Ca EKG shows normal: sinus rhythm, axis (Normal), intervals (Normal), QRS complexes (Normal), ST-T waves (Normal) Rate: normal (Rate 71 bpm) Disposition Clinical Impression: Mood disorder Disposition: OTHER INSTITUTION NOT DEFINED Condition: Fair Is patient prescribed a controlled substance at d/c from ED?: No Referrals: Tiarra Jimenez MD [Primary Care Provider] - 1-2 days - Out of Hospital Transfer - Req. Specs Out of Hospital Transfer - Requested Specifics: Psychiatric Non-ICU
[2019-01-01 22:37] LABS: Appearance,Urine Clear (Clear); Bacteria,Urine Rare /hpf; Bilirubin,Urine Negative (Negative); Blood,Urine Negative (Negative); Color,Urine Colorless; Glucose,Urine (UA) Negative (Negative); Ketones,Urine Negative (Negative); Leukocyte Esterase,Urine Trace (Negative); Nitrite,Urine Negative (Negative); PH, Urine 6.5 (5.0-8.0); Protein,Urine Negative (Negative); Squamous Epithelial Cell,Urine 1 /hpf (0-4); Urobilinogen,Urine <2.0 mg/dL (<2.0); WBC,Urine <1 /hpf (0-5)
[2019-01-01 22:50] LABS: Amphetamine Screen,Urine Not Detected (NotDetected); Barbiturate Screen,Urine Not Detected (NotDetected); Benzodiazepines Screen,Urine Detected (NotDetected); Cocaine Screen,Urine Not Detected (NotDetected); Methadone Screen, Urine Not Detected (NotDetected); Opiate Screen,Urine Not Detected (NotDetected); Oxycodone Screen, Urine Not Detected (NotDetected); Phencyclidine Screen,Urine Not Detected (NotDetected); Tricyclic Antidepressant,Urine Not Detected (NotDetected); Urn Cannabinoid Scrn Detected (NotDetected)
[2019-01-02] MEDS ORDERED: OXcarbazepine 150 MG TAB PO STA (05:31)
[2019-01-02 06:03] LABS: Basophils % (A) 1 %; Eosinophils # (A) 0.2 k/uL (0-0.7); Eosinophils % (A) 2 %; HGB 12.5 gm/dL (11.4-16.0); Lymphocytes # (A) 3.6 k/uL (1.0-4.8); Lymphocytes % (A) 42 %; MCH 29.5 pg (25.0-35.0); MCHC 34.8 g/dL (31.0-37.0); MCV 84.8 fL (80.0-100.0); Mean Platelet Volume 6.2; Monocytes # (A) 0.4 k/uL (0-1.0); Monocytes % (A) 5 %; Neutrophils # (A) 4.2 k/uL (1.3-7.7); Neutrophils % (A) 49 %; Platelet Count 276 k/uL (150-450); RBC 4.25 m/uL (3.80-5.40); RDW 12.2 % (11.5-15.5); WBC 8.6 k/uL (3.8-10.6)
[2019-01-02 06:20] LABS: ALT 21 U/L (9-52); AST 23 U/L (14-36); Acetaminophen <10.0 ug/mL; African American GFR (CKD) >90 (>60 ml/min/1.73 sqM); Albumin 3.9 g/dL (3.5-5.0); Alcohol <10 mg/dL; Alkaline Phosphatase 62 U/L (38-126); Anion Gap 7 mmol/L; Blood Urea Nitrogen 7 mg/dL (7-17); Calcium 9.1 mg/dL (8.4-10.2); Carbon Dioxide 29 mmol/L (22-30); Chloride 104 mmol/L (98-107); Glucose 93 mg/dL (74-99); Potassium 4.4 mmol/L (3.5-5.1); Salicylate <1.0 mg/dL; Sodium 140 mmol/L (137-145); Total Bilirubin 0.4 mg/dL (0.2-1.3); Total Protein 6.9 g/dL (6.3-8.2)
[2019-01-02 06:21] VITALS: BP 132/78; PULSE 76; RESP 18; TEMP 98
== END 2019-01-02 07:40 | disposition other institution (70) ==
LOC: EC 21:54
DX: F31.9 Bipolar disorder, unspecified (principal); F41.9 Anxiety disorder, unspecified; K21.9 Gastro-esophageal reflux disease without esophagitis; I10 Essential (primary) hypertension; E78.5 Hyperlipidemia, unspecified; G47.30 Sleep apnea, unspecified; J44.9 Chronic obstructive pulmonary disease, unspecified; Z79.51 Long term (current) use of inhaled steroids; Z79.899 Other long term (current) drug therapy; Z91.030 Bee allergy status; Z88.8 Allergy status to other drugs, medicaments and biological substances; Z87.891 Personal history of nicotine dependence; Z99.89 Dependence on other enabling machines and devices
CPT/HCPCS: 82075; 36415; 93005; 80053; 85025; 81001; 81025; 80306; 83520; 99285; G0480 ×2; 80320; 80329

== ENCOUNTER → 2019-05-28 | Outpatient (CLI) | payer OTHER ==
--- NOTE | 2019-05-28 22:10 | MR ---
EXAMINATION TYPE: MR lumbar spine wo con DATE OF EXAM: 05/28/2019 COMPARISON: 06/29/2016 HISTORY: Chronic low back pain CONTRAST: 0 mL intravenous Gadavist. TECHNIQUE: Multiplanar, multisequence images of the lumbar spine were acquired. FINDINGS: Cord terminates at the L1 level. L5-S1: There is loss of disc height to this level. No significant disc bulge is evident. No spinal ca nal stenosis is present. There is moderate left foraminal narrowing and mild right foraminal narrowin g. Facets appear within normal limits. The left foraminal narrowing has diminished from severe forami nal stenosis present previously L4-L5: No significant disc bulge or disc herniation. No spinal canal stenosis. No foraminal stenosi s. Disc desiccation is noted.. L3-L4: No significant disc bulge or disc herniation. No spinal canal stenosis. No foraminal stenosi s. L2-L3: No significant disc bulge or disc herniation. No spinal canal stenosis. No foraminal stenosi s. L1-L2: No significant disc bulge or disc herniation. No spinal canal stenosis. No foraminal stenosi s. T12-L1: No significant disc bulge or disc herniation. No spinal canal stenosis. No foraminal stenos is. IMPRESSION: 1. Degenerative disc changes with narrowing of the disc height at L5-S1. 2. Moderate left foraminal stenosis due to disc bulging and endplate changes. This is diminished from the comparison study of 2016.
== END | disposition home or self-care (01) ==
LOC: RADMRIMAIN 19:26
PROVIDERS: ATTEND Internal Medicine
DX: M48.061 Spinal stenosis, lumbar region without neurogenic claudication (principal); M51.26 Other intervertebral disc displacement, lumbar region; M51.37 Other intervertebral disc degeneration, lumbosacral region
CPT/HCPCS: 72148

== ENCOUNTER → 2019-06-10 | Outpatient (CLI) | payer OTHER ==
[2019-06-10 13:35] VITALS: BP 123/87; PULSE 94; RESP 18
== END | disposition home or self-care (01) ==
LOC: PNWHC3 13:22
PROVIDERS: ATTEND Anesthesiology
DX: M48.061 Spinal stenosis, lumbar region without neurogenic claudication (principal); M47.816 Spondylosis without myelopathy or radiculopathy, lumbar region; M25.562 Pain in left knee; Z87.891 Personal history of nicotine dependence; Z79.891 Long term (current) use of opiate analgesic; Z79.51 Long term (current) use of inhaled steroids; Z79.890 Hormone replacement therapy; Z79.899 Other long term (current) drug therapy
CPT/HCPCS: 99211

== ENCOUNTER 2019-06-11 12:37 | Inpatient (IN) | payer MEDICAID, OTHER ==
--- NOTE | 2019-06-11 14:07 | ED ---
General Adult HPI - General Chief complaint: Psychiatric Symptoms Stated complaint: Mental health eval Time Seen by Provider: 06/11/19 13:13 Source: patient, RN notes reviewed, old records reviewed Mode of arrival: ambulatory Limitations: no limitations - History of Present Illness Initial comments: 38-year-old female with history of depression and anxiety presenting with suicidal ideation and worsening depression. Patient denies suicide attempt. She states her symptoms have been building for the past several weeks. She's had increased thoughts of suicide but does not currently have a plan. She's had inpatient psychiatric treatment in the past. She denies any physical complaints. Denies alcohol or drugs of abuse. - Related Data Home Medications Medication Instructions Recorded Confirmed Cyclobenzaprine [Flexeril] 10 mg PO TID PRN 11/12/13 06/11/19 Lisinopril [Prinivil] 10 mg PO DAILY 03/04/16 06/11/19 Pravastatin Sodium [Pravachol] 40 mg PO DAILY 10/15/16 06/11/19 Vortioxetine Hydrobromide 20 mg PO DAILY 10/15/16 06/11/19 [Trintellix] Albuterol Inhaler [Ventolin Hfa 2 puff INHALATION RT-BID PRN 05/05/17 06/11/19 Inhaler] oxyCODONE-APAP 10-325MG [Percocet 1 tab PO TID 01/30/18 06/11/19 10-325 mg] Gabapentin [Neurontin] 400 mg PO TID 08/03/18 06/11/19 Butalb/APAP/Caff 50-325-40Mg 1 tab PO BID PRN 06/09/19 06/11/19 [Fioricet 50-325-40] Cariprazine HCl [Vraylar] 1.5 mg PO DAILY 06/09/19 06/11/19 Melatonin 10 mg PO HS 06/09/19 06/11/19 Rizatriptan Benzoate [Maxalt] 10 mg PO Q12H PRN 06/09/19 06/11/19 busPIRone HCL [Buspar] 30 mg PO BID 06/09/19 06/11/19 hydrOXYzine PAMOATE [Vistaril] 50 mg PO BID PRN 06/09/19 06/11/19 Cholecalciferol [Vitamin D3 (25 1,000 unit PO DAILY 06/11/19 06/11/19 Mcg = 1000 Iu)] Docusate [Colace] 100 mg PO BID 06/11/19 06/11/19 EPINEPHrine (Auto Inject) [Epipen] 0.3 mg IM ONCE PRN 06/11/19 06/11/19 Fluticasone/Salmeterol [Airduo 1 puff INHALATION RT-BID 06/11/19 06/11/19 Respiclick 113-14 Mcg] Ondansetron [Zofran] 4 mg PO Q4H PRN 06/11/19 06/11/19 Propranolol [Inderal] 40 mg PO DAILY 06/11/19 06/11/19 Allergies Allergy/AdvReac Type Severity Reaction Status Date / Time bee venom protein (honey bee) Allergy Rash/Hives Verified 06/11/19 13:06 omeprazole Allergy Rash/Hives Verified 06/11/19 13:06 Review of Systems ROS Statement: Those systems with pertinent positive or pertinent negative responses have been documented in the HPI. ROS Other: All systems not noted in ROS Statement are negative. Past Medical History Past Medical History: COPD, GERD/Reflux, Hyperlipidemia, Hypertension, Musculoskeletal Disorder, Sleep Apnea/CPAP/BIPAP Additional Past Medical History / Comment(s): hx migraines, ,has Nexplanon Implant, uses CPAP History of Any Multi-Drug Resistant Organisms: None Reported Additional Past Surgical History / Comment(s): sinus surgery, eye, pain procedures Past Anesthesia/Blood Transfusion Reactions: Motion Sickness Past Psychological History: Anxiety, Bipolar, Depression Smoking Status: Former smoker Past Alcohol Use History: None Reported Past Drug Use History: Marijuana - Past Family History Mother Family Medical History: Cancer Additional Family Medical History / Comment(s): lymphoma Father Family Medical History: Hypertension General Exam Limitations: no limitations General appearance: alert, in no apparent distress Head exam: Present: atraumatic, normocephalic Eye exam: Present: normal appearance, PERRL ENT exam: Present: normal exam Neck exam: Present: normal inspection. Absent: tenderness, meningismus Respiratory exam: Present: normal lung sounds bilaterally. Absent: respiratory distress Cardiovascular Exam: Present: regular rate, normal rhythm GI/Abdominal exam: Present: soft. Absent: distended, tenderness, guarding Extremities exam: Present: normal inspection Neurological exam: Present: alert, oriented X3, CN II-XII intact. Absent: motor sensory deficit Psychiatric exam: Present: depressed, anxious, suicidal ideation Skin exam: Present: warm, dry, intact. Absent: cyanosis, diaphoretic Course Vital Signs 06/11/19 13:00 Temperature 98.6 F Pulse Rate 98 Respiratory 16 Rate Blood Pressure 150/98 O2 Sat by Pulse 99 Oximetry Medical Decision Making - Medical Decision Making Patient medically cleared, evaluated by EPS. She has depression and suicidal ideation and will be admitted to this institution for further psychiatric evaluation and treatment. Patient is agreeable with plan. - Lab Data Lab Results 06/11/19 06/11/19 06/11/19 Range/Units 14:05 14:05 14:05 Urine Color Light Yellow Urine Appearance Clear (Clear) Urine pH 5.5 (5.0-8.0) Ur Specific [place] 1.010 (1.001-1.035) Urine Protein Negative (Negative) Urine Glucose (UA) Negative (Negative) Urine Ketones Negative (Negative) Urine Blood Negative (Negative) Urine Nitrite Negative (Negative) Urine Bilirubin Negative (Negative) Urine Urobilinogen <2.0 (<2.0) mg/dL Ur Leukocyte Esterase Negative (Negative) Urine HCG, Qual Not Detected (Not Detectd) Urine Opiates Screen Detected H (NotDetected) Ur Oxycodone Screen Not Detected (NotDetected) Urine Methadone Screen Not Detected (NotDetected) Ur Propoxyphene Screen Not Detected (NotDetected) Ur Barbiturates Screen Detected H (NotDetected) U Tricyclic Antidepress Not Detected (NotDetected) Ur Phencyclidine Scrn Not Detected (NotDetected) Ur Amphetamines Screen Not Detected (NotDetected) U Methamphetamines Scrn Not Detected (NotDetected) U Benzodiazepines Scrn Detected H (NotDetected) Urine Cocaine Screen Not Detected (NotDetected) U Marijuana (THC) Screen Detected H (NotDetected) Disposition Clinical Impression: Depression, Suicidal ideation Disposition: ADMITTED IP TO THIS [facility] Condition: Stable Is patient prescribed a controlled substance at d/c from ED?: No Decision to Admit Reason: Admit from EC Decision Date: 06/11/19 Decision Time: 17:25
[2019-06-11 14:40] LABS: Amphetamine Screen,Urine Not Detected (NotDetected); Barbiturate Screen,Urine Detected (NotDetected); Benzodiazepines Screen,Urine Detected (NotDetected); Cocaine Screen,Urine Not Detected (NotDetected); Methadone Screen, Urine Not Detected (NotDetected); Opiate Screen,Urine Detected (NotDetected); Oxycodone Screen, Urine Not Detected (NotDetected); Phencyclidine Screen,Urine Not Detected (NotDetected); Tricyclic Antidepressant,Urine Not Detected (NotDetected); Urn Cannabinoid Scrn Detected (NotDetected)
[2019-06-11 16:51] LABS: Appearance,Urine Clear (Clear); Bilirubin,Urine Negative (Negative); Blood,Urine Negative (Negative); Color,Urine Light Yellow; Glucose,Urine (UA) Negative (Negative); Ketones,Urine Negative (Negative); Leukocyte Esterase,Urine Negative (Negative); Nitrite,Urine Negative (Negative); PH, Urine 5.5 (5.0-8.0); Protein,Urine Negative (Negative); Urobilinogen,Urine <2.0 mg/dL (<2.0)
[2019-06-11] MEDS ORDERED: MAG HYDROX/AL HYDROX/SIMETH 30 ML CUP PO PRN (17:49)
[2019-06-11] MEDS ORDERED: ACETAMINOPHEN TAB 325 MG TAB PO PRN (17:49)
[2019-06-11] MEDS ORDERED: MAGNESIUM HYDROXIDE 2,400 MG/10 ML CUP PO PRN (17:49)
[2019-06-11] MEDS ORDERED: ALBUTEROL INHALER 60 PUFF/8 GM INHALER INHALATION PRN (17:55)
[2019-06-11] MEDS ORDERED: oxyCODONE-APAP 10-325MG 1 EACH TAB PO STA (18:13)
[2019-06-11] MEDS: GABAPENTIN 400 MG CAP PO SCH ×2 (18:20→21:11)
[2019-06-11] MEDS: SYMBICORT 160-4.5 MCG INHALER INHALATION SCH (20:08)
[2019-06-11] MEDS: busPIRone HCl 10 MG TAB PO SCH (21:11)
[2019-06-11] MEDS: MELATONIN 5 MG TABLET PO SCH (21:11)
[2019-06-11] MEDS: hydrOXYzine PAMOATE 25 MG CAP PO PRN (21:53)
[2019-06-12 08:05] LABS: Basophils % (A) 0 %; Eosinophils # (A) 0.2 k/uL (0-0.7); Eosinophils % (A) 2 %; HGB 12.7 gm/dL (11.4-16.0); Lymphocytes # (A) 2.6 k/uL (1.0-4.8); Lymphocytes % (A) 33 %; MCH 28.9 pg (25.0-35.0); MCHC 32.6 g/dL (31.0-37.0); MCV 88.9 fL (80.0-100.0); Mean Platelet Volume 7.4; Monocytes # (A) 0.5 k/uL (0-1.0); Monocytes % (A) 6 %; Neutrophils # (A) 4.3 k/uL (1.3-7.7); Neutrophils % (A) 56 %; Platelet Count 314 k/uL (150-450); RBC 4.39 m/uL (3.80-5.40); RDW 12.2 % (11.5-15.5); WBC 7.7 k/uL (3.8-10.6)
[2019-06-12 08:25] LABS: ALT 23 U/L (4-34); AST 29 U/L (14-36); African American GFR (CKD) >90 (>60 ml/min/1.73 sqM); Albumin 4.1 g/dL (3.5-5.0); Alkaline Phosphatase 75 U/L (38-126); Anion Gap 5 mmol/L; Blood Urea Nitrogen 10 mg/dL (7-17); Calcium 9.2 mg/dL (8.4-10.2); Carbon Dioxide 31 mmol/L (22-30); Chloride 102 mmol/L (98-107); Cholesterol 215 mg/dL (<200); Glucose 90 mg/dL (74-99); HDL Cholesterol 61 mg/dL (40-60); LDL Cholesterol,Calculated 133 mg/dL (0-99); Non-African American GFR(CKD) >90 (>60 ml/min/1.73 sqM); Potassium 4.6 mmol/L (3.5-5.1); Sodium 138 mmol/L (137-145); Total Bilirubin 0.5 mg/dL (0.2-1.3); Total Protein 7.2 g/dL (6.3-8.2); Triglycerides 105 mg/dL (<150)
[2019-06-12] MEDS: NICOTINE 7MG/24HR PATCH TRANSDERM SCH ×2 (08:53→09:09)
[2019-06-12] MEDS: busPIRone HCl 10 MG TAB PO SCH ×2 (08:55→21:38)
[2019-06-12] MEDS: PROPRANOLOL 40 MG TAB PO SCH (08:55)
[2019-06-12] MEDS: VORTIOXETINE HYDROBROMIDE 20 MG TABLET PO SCH (08:55)
[2019-06-12] MEDS: PRAVASTATIN SODIUM 40 MG TAB PO SCH (08:55)
[2019-06-12] MEDS: GABAPENTIN 400 MG CAP PO SCH ×3 (08:56→21:38)
[2019-06-12] MEDS: LISINOPRIL 10 MG TAB PO SCH (08:56)
[2019-06-12] MEDS: CHOLECALCIFEROL 1,000 UNIT TAB PO SCH (08:56)
[2019-06-12] MEDS ORDERED: VORTIOXETINE HYDROBROMIDE 20 MG TABLET PO SCH (09:00)
[2019-06-12] MEDS ORDERED: VORTIOXETINE HYDROBROMIDE 10 MG TABLET PO SCH (09:00)
[2019-06-12] MEDS: hydrOXYzine PAMOATE 25 MG CAP PO PRN (11:08)
--- NOTE | 2019-06-12 11:39 | P.HP ---
Psychiatric H&P - . H&P Date: 06/12/19 History & Physical: IDENTIFYING Data: Sandy Sears is a 38-year-old single female who currently lives with her mother and 12-year-old son, unemployed on SSI, has psychiatric history of bipolar II, ADD, cannabis use disorder, and medical history of Hypertension, hyperpiesia, migraine, chronic back pain. The patient has been admitted to our inpatient psychiatric services after been transferred from [facility] ED. Patient was initially brought to ED accompanied by her therapist because patient reported feeling increasingly depressed, suicidal and was burning herself. The patient has been admitted on voluntary basis to our service. CHIEF COMPLAINT: "depression, anxiety, burning myself." HISTORY OF PRESENT ILLNESS: As per ED note: " 38-year-old female with history of depression and anxiety presenting with suicidal ideation and worsening depression. Patient denies suicide attempt. She states her symptoms have been building for the past several weeks. She's had increased thoughts of suicide but does not currently have a plan. She's had inpatient psychiatric treatment in the past. She denies any physical complaints. Denies alcohol or drugs of abuse." The patient was evaluated today. She reports have been feeling more depressed, hopeless with increased suicidal thoughts and feeling constantly overwhelmed and stressed. She reports was at therapy session yesterday when she disclosed to her therapy about suicidal thoughts and started to burn herself 2 weeks ago to cope with stress and relief her tension and sense of overwhelming. Therapist brought the patient to ED and patient was admitted. Patient is currently receiving outpatient treatment at [facility] and her current medications Vraylar 1.5 mg daily, Trintillex 20 mg daily, Buspar 30 mg BID and Vistaril as needed for anxiety. Patient reports has been taking her medications as prescribed but she continued to feel increasingly depressed and suicidal over the past 2-3 weeks. She reports symptoms of feeling depressed most of the time, lost interest/ motivation, sleep disturbances either sleep for long hours or insomnia, feeling helpless, hopeless, and worthless. The patient reports severe mood swings with times feeling very irritable and "internally angry" but denies outburst of rage or aggressive behavior. Reportedly the patient has access to guns at home, and her family are working to remove the guns from home as per ED SW report yesterday. Patient reports previous history of suicidal attempts with last time was November 2018. She denies classic manic episodes but reports times of feeling "very excited that usual", more energetic that could last for few hours. Denies current or previous symptoms of euphoric mood, irrational/ impulsive behavior. She reports history of severe anxiety that she worries out of proportion to the situations. She admits for always has racing thoughts and feels very tense. She reports physical symptoms of anxiety including racing heart, stomach cramps, sweating and twitching. Panic attacks was reported by the patient as "infrequent with last time was few months ago". Patient reports history of social anxiety and avoidance social interactions. In regard of PTSD symptoms; patient denies symptoms of flashbacks, nightmares and intrusive thoughts related to prior psychological traumas. Patient denies history of psychosis including hallucinations, PI and no delusions could be elicited. She reports returned back to [facility] 2 weeks ago by burning herself using a medical transcriptionist and usually burn herself at her uncles. She reports history of cutting herself as a teenager. PAST PSYCHIATRIC HISTORY: Previous diagnoses: Bipolar II, ADD, Cannabis use disorder Previous psychiatric hospitalizations: "several time", last time at [facility] December 2018. Previous suicide attempts: "more than 6-7 times", last time by overdose on medications November 2018. Current psychiatric medications: Currently received treatment at [facility] psychiatric services, and on medications Vraylar, Trintillex, Buspar and Vistaril. Previous medication trials: Prozac, Zoloft, Paxil, Remeron, Depakote,Trazodone, Adderall, Seroquel, Risperidone. SUBSTANCE ABUSE HISTORY: Nicotine: 1-2 PPD for more than 10 years. Alcohol: very occasional "once or twice every 2 months" Cocaine/ other stimulants: Occasionally. UDS positive for THC Denies use of any street drugs. Denies IVDU and denies any history of ALVARO treatment. UDS was positive for opiate but patient prescribed narcotic pain medications, Barbital (on Butlab), benzodiazepines (not prescribed), and THC. Patient denies any use of street BZD. Social History: Patient was born in [facility] and raised up by both parents. Housing: Currently lives with her mother and her son. The patient is currently single. Work history: unemployed on [employer]. Education: Patient reports attaining an educational level of 10th grade. Children: Patient reports having one child (12-year-old son) History of psychological trauma: Denies FAMILY HISTORY: Psychiatric Illness: Mother suffers from anxiety . Substance abuse: denies. Completed Suicides: denies. Medical History: HTN, Hyperlipidemia, Migraine, chronic back pain MENTAL STATUS EVALUATION: Appearance: Appears stated age, fairly groomed, above average body built, and no specific features. Gait/ posture: Steady gait, normal arm swinging, no abnormal movements, with relaxed posture. Attitude and Behavior: engaged, cooperative, fair eye contact during course of interview. Motor Activity: normal psychomotor activity. Speech: spontaneous, normal rate, rhythm, and articulation. normal volume. not pressured. Language: Articulating, naming objects and repeat phrases. Mood: "depressed" Affect: Restricted. Thought process: linear, goal-directed. Association: intact. Thought content: Denies delusions, Reports suicidal thoughts, denies homicidal thoughts, Denies intentions, or plans. Perception: Denies any hallucinations Alertness: No impairment. Concentration: Impaired Orientation: Oriented to time, person, place and situation. Insight regarding psychiatric condition: Fair Judgment regarding daily activities and social situation: fair Impulse control: fair Strengths: Social support - mother Outpatient psychiatric treatment Financial stability SSI Challenges: Poor coping skills Use of marijuana Allergies Allergy/AdvReac Type Severity Reaction Status Date / Time bee venom protein (honey bee) Allergy Rash/Hives Verified 06/11/19 19:14 omeprazole Allergy Rash/Hives Verified 06/11/19 19:14 Vital Signs Temp 98.1 F 06/12/19 06:56 Pulse 107 H 06/12/19 09:30 Resp 14 06/12/19 06:56 BP 171/104 06/12/19 09:30 Pulse Ox 95 06/11/19 19:05 Intake & Output 06/11/19 06/12/19 06/12/19 18:59 06:59 18:59 Weight 124.738 kg 124.738 kg Review of Lab results: Reviewed Laboratory Last Values WBC 7.7 k/uL (3.8-10.6) 06/12/19 07:15 RBC 4.39 m/uL (3.80-5.40) 06/12/19 07:15 Hgb 12.7 gm/dL (11.4-16.0) 06/12/19 07:15 Hct 39.0 % (34.0-46.0) 06/12/19 07:15 MCV 88.9 fL (80.0-100.0) 06/12/19 07:15 MCH 28.9 pg (25.0-35.0) 06/12/19 07:15 MCHC 32.6 g/dL (31.0-37.0) 06/12/19 07:15 RDW 12.2 % (11.5-15.5) 06/12/19 07:15 Plt Count 314 k/uL (150-450) 06/12/19 07:15 Neutrophils % 56 % 06/12/19 07:15 Lymphocytes % 33 % 06/12/19 07:15 Monocytes % 6 % 06/12/19 07:15 Eosinophils % 2 % 06/12/19 07:15 Basophils % 0 % 06/12/19 07:15 Neutrophils # 4.3 k/uL (1.3-7.7) 06/12/19 07:15 Lymphocytes # 2.6 k/uL (1.0-4.8) 06/12/19 07:15 Monocytes # 0.5 k/uL (0-1.0) 06/12/19 07:15 Eosinophils # 0.2 k/uL (0-0.7) 06/12/19 07:15 Basophils # 0.0 k/uL (0-0.2) 06/12/19 07:15 Sodium 138 mmol/L (137-145) 06/12/19 07:15 Potassium 4.6 mmol/L (3.5-5.1) 06/12/19 07:15 Chloride 102 mmol/L (98-107) 06/12/19 07:15 Carbon Dioxide 31 mmol/L (22-30) H 06/12/19 07:15 Anion Gap 5 mmol/L 06/12/19 07:15 BUN 10 mg/dL (7-17) 06/12/19 07:15 Creatinine 0.68 mg/dL (0.52-1.04) 06/12/19 07:15 Est GFR (CKD-EPI)AfAm >90 (>60 ml/min/1.73 sqM) 06/12/19 07:15 Est GFR (CKD-EPI)NonAf >90 (>60 ml/min/1.73 sqM) 06/12/19 07:15 Glucose 90 mg/dL (74-99) 06/12/19 07:15 Calcium 9.2 mg/dL (8.4-10.2) 06/12/19 07:15 Total Bilirubin 0.5 mg/dL (0.2-1.3) 06/12/19 07:15 AST 29 U/L (14-36) 06/12/19 07:15 ALT 23 U/L (4-34) 06/12/19 07:15 Alkaline Phosphatase 75 U/L (38-126) 06/12/19 07:15 Total Protein 7.2 g/dL (6.3-8.2) 06/12/19 07:15 Albumin 4.1 g/dL (3.5-5.0) 06/12/19 07:15 Triglycerides 105 mg/dL (<150) 06/12/19 07:15 Cholesterol 215 mg/dL (<200) H 06/12/19 07:15 LDL Cholesterol, Calc 133 mg/dL (0-99) H 06/12/19 07:15 HDL Cholesterol 61 mg/dL (40-60) H 06/12/19 07:15 TSH 1.250 mIU/L (0.465-4.680) 06/12/19 07:15 Urine Color Light Yellow 06/11/19 14:05 Urine Appearance Clear (Clear) 06/11/19 14:05 Urine pH 5.5 (5.0-8.0) 06/11/19 14:05 Ur Specific [place] 1.010 (1.001-1.035) 06/11/19 14:05 Urine Protein Negative (Negative) 06/11/19 14:05 Urine Glucose (UA) Negative (Negative) 06/11/19 14:05 Urine Ketones Negative (Negative) 06/11/19 14:05 Urine Blood Negative (Negative) 06/11/19 14:05 Urine Nitrite Negative (Negative) 06/11/19 14:05 Urine Bilirubin Negative (Negative) 06/11/19 14:05 Urine Urobilinogen <2.0 mg/dL (<2.0) 06/11/19 14:05 Ur Leukocyte Esterase Negative (Negative) 06/11/19 14:05 Urine HCG, Qual Not Detected (Not Detectd) 06/11/19 14:05 Urine Opiates Screen Detected (NotDetected) H 06/11/19 14:05 Ur Oxycodone Screen Not Detected (NotDetected) 06/11/19 14:05 Urine Methadone Screen Not Detected (NotDetected) 06/11/19 14:05 Ur Propoxyphene Screen Not Detected (NotDetected) 06/11/19 14:05 Ur Barbiturates Screen Detected (NotDetected) H 06/11/19 14:05 U Tricyclic Antidepress Not Detected (NotDetected) 06/11/19 14:05 Ur Phencyclidine Scrn Not Detected (NotDetected) 06/11/19 14:05 Ur Amphetamines Screen Not Detected (NotDetected) 06/11/19 14:05 U Methamphetamines Scrn Not Detected (NotDetected) 06/11/19 14:05 U Benzodiazepines Scrn Detected (NotDetected) H 06/11/19 14:05 Urine Cocaine Screen Not Detected (NotDetected) 06/11/19 14:05 U Marijuana (THC) Screen Detected (NotDetected) H 06/11/19 14:05 Assessment: Bipolar disorder, unspecified. Rule out Bipolar II Rule out Generalized anxiety disorder Rule out Cannabis use disorder. TREATMENT PLAN/RECOMMENDATIONS: Medical Decision making: The patient presented with severe depression and SI, and has self-mutilating behavior for last 2 weeks. The patient at high risk to hurt herself if she is not in the inpatient setting. The patient's psychiatric symptoms are not stable and she needs further management of psychiatric medications and further planning for discharge. Therefore, inpatient level of care is needed. Continue the patient inpatient for safety. Continue the patient under 15 minutes safe check for safety. Psych education regarding her diagnosis, and treatment option. The patient will also be provided with individual therapy, group therapy, substance abuse counseling, gain insight, and coping skills. Consider medical consultation if any acute medical issue arise. Medications: Continue Vraylar and increase dose to 3 mg daily for mood stabilization. continue Trintillex 20 mg daily for depression and anxiety Continue Buspar 30 mg BID for anxiety Continue Vistaril PRN for anxiety Continue Melatonin at bedtime for insomnia The patient will be assessed on daily basis for his depression, suicidal ideation, and will be discharged back to his outpatient mental health provider upon stabilization. EXPECTED LENGTH OF STAY: 7 days. 06/12/19 11:07
--- NOTE | 2019-06-12 15:02 | P.HPIM ---
History of Present Illness H&P Date: 06/12/19 Chief Complaint: Medical management while hospitalized in the psychiatry unit Darcie Sears is a 38-year-old female well known to my practice, who was admitted to the psychiatry unit due to severe depression and suicidal ideation, patient has a known history of chronic back pain she is followed at the pain clinic with Dr. Esquivel and receives Percocet 10/325 3 times daily, she also has a known history of hypertension, hyperlipidemia, asthma, migraine headache, and known history of depression. On review of systems: Patient is alert and oriented 3 in no apparent distress she is complaining of cough and thinks that she has bronchitis otherwise she denies any complaints there is no fever or chills no headache or dizziness no chest pain no shortness of breath no nausea or vomiting no abdominal pain no diarrhea no burning with urination no frequency or urgency and no hematuria Past Medical History Past Medical History: COPD, GERD/Reflux, Hyperlipidemia, Hypertension, Musculoskeletal Disorder, Sleep Apnea/CPAP/BIPAP Additional Past Medical History / Comment(s): hx migraines, ,has Nexplanon Implant, uses CPAP History of Any Multi-Drug Resistant Organisms: None Reported Additional Past Surgical History / Comment(s): sinus surgery, eye, pain proce dures Past Anesthesia/Blood Transfusion Reactions: Motion Sickness Past Psychological History: Anxiety, Bipolar, Depression Smoking Status: Former smoker Past Alcohol Use History: None Reported Additional Past Alcohol Use History / Comment(s): started smoking at age 13 or 14, occ smoker SMOKES 2-3CIG A DAY Past Drug Use History: Marijuana Additional Drug Use History / Comment(s): OCCASIONAL USE - Past Family History Mother Family Medical History: Cancer Additional Family Medical History / Comment(s): lymphoma Father Family Medical History: Hypertension Medications and Allergies Home Medications Medication Instructions Recorded Confirmed Type Cyclobenzaprine [Flexeril] 10 mg PO TID PRN 11/12/13 06/11/19 History Lisinopril [Prinivil] 10 mg PO DAILY 03/04/16 06/11/19 History Pravastatin Sodium [Pravachol] 40 mg PO DAILY 10/15/16 06/11/19 History Vortioxetine Hydrobromide 20 mg PO DAILY 10/15/16 06/11/19 History [Trintellix] Albuterol Inhaler [Ventolin Hfa 2 puff INHALATION RT-BID PRN 05/05/17 06/11/19 History Inhaler] oxyCODONE-APAP 10-325MG [Percocet 1 tab PO TID 01/30/18 06/11/19 History 10-325 mg] Gabapentin [Neurontin] 400 mg PO TID 08/03/18 06/11/19 History Butalb/APAP/Caff 50-325-40Mg 1 tab PO BID PRN 06/09/19 06/11/19 History [Fioricet 50-325-40] Cariprazine HCl [Vraylar] 1.5 mg PO DAILY 06/09/19 06/11/19 History Melatonin 10 mg PO HS 06/09/19 06/11/19 History Rizatriptan Benzoate [Maxalt] 10 mg PO Q12H PRN 06/09/19 06/11/19 History busPIRone HCL [Buspar] 30 mg PO BID 06/09/19 06/11/19 History hydrOXYzine PAMOATE [Vistaril] 50 mg PO BID PRN 06/09/19 06/11/19 History Cholecalciferol [Vitamin D3 (25 1,000 unit PO DAILY 06/11/19 06/11/19 History Mcg = 1000 Iu)] Docusate [Colace] 100 mg PO BID 06/11/19 06/11/19 History EPINEPHrine (Auto Inject) [Epipen] 0.3 mg IM ONCE PRN 06/11/19 06/11/19 History Fluticasone/Salmeterol [Airduo 1 puff INHALATION RT-BID 06/11/19 06/11/19 Hi story Respiclick 113-14 Mcg] Ondansetron [Zofran] 4 mg PO Q4H PRN 06/11/19 06/11/19 History Propranolol [Inderal] 40 mg PO DAILY 06/11/19 06/11/19 History Allergies Allergy/AdvReac Type Severity Reaction Status Date / Time bee venom protein (honey bee) Allergy Rash/Hives Verified 06/11/19 19:14 omeprazole Allergy Rash/Hives Verified 06/11/19 19:14 Physical Exam Vitals: Vital Signs Temp Pulse Pulse Pulse Resp BP BP 06/12/19 11:10 78 133/89 06/12/19 09:30 107 H 171/104 06/12/19 06:56 98.1 F 95 14 06/11/19 21:55 100 18 06/11/19 19:05 97.6 F 97 20 06/11/19 18:21 85 18 178/112 BP Pulse Ox 06/12/19 11:10 06/12/19 09:30 06/12/19 06:56 134/94 06/11/19 21:55 139/82 06/11/19 19:05 145/97 95 06/11/19 18:21 98 Intake and Output 06/11/19 06/12/19 06/12/19 22:59 06:59 14:59 Other: Weight 124.738 kg HEENT head normocephalic and atraumatic Neck is supple no JVD no goiter no lymphadenopathy Chest exam reveals a few scattered rhonchi bilaterally no wheezing Cardiac exam reveals regular heart sounds S1 and S2 no gallops no murmurs Abdomen is soft nontender no organomegaly with normal bowel sounds Extremity exam reveals no edema no cyanosis or clubbing Neurological examination reveals patient is alert and oriented 3 there is no gross focal deficit Results CBC & Chem 7: 06/12/19 07:15 06/12/19 07:15 Labs: Abnormal Lab Results - Last 24 Hours (Table) 06/12/19 Range/Units 07:15 Carbon Dioxide 31 H (22-30) mmol/L Cholesterol 215 H (<200) mg/dL LDL Cholesterol, Calc 133 H (0-99) mg/dL HDL Cholesterol 61 H (40-60) mg/dL Thrombosis Risk Factor Assmnt - Choose All That Apply Any of the Below Risk Factors Present?: No Other Risk Factors: No Other congenital or acquired thrombophilia - If yes, enter type in comment: No Thrombosis Risk Factor Assessment Level: Very Low Risk Assessment and Plan Plan: #1 depression with suicidal ideation management per primary psychiatry team currently patient is maintained on Trintellex and Vraylar #2 chronic back pain followed at the pain clinic, will reorder Percocet 10/325 one 3 times daily, continue Neurontin as ordered #3 underlying history of hypertension continue with lisinopril 10 mg daily #4 underlying history of hyperlipidemia continue with Pravachol #5 underlying history of asthma stable at this time continue with Ventolin inhaler as needed, and Symbicort inhaler 160/4.5 twice daily #6 evidence of acute bronchitis with start patient on Ceftin 500 mg by mouth twice daily #7 medication and labs reviewed, medication reorder, will follow during this admission for medical management
[2019-06-12] MEDS: oxyCODONE-APAP 10-325MG 1 EACH TAB PO PRN ×2 (15:36→21:40)
[2019-06-12 17:59] LABS: Hemoglobin A1C 5.5 % (4.0-6.0)
[2019-06-12] MEDS: SYMBICORT 160-4.5 MCG INHALER INHALATION SCH (21:36)
[2019-06-12] MEDS: CEFDINIR 300 MG CAP PO SCH (21:38)
[2019-06-12] MEDS: MELATONIN 5 MG TABLET PO SCH (21:38)
[2019-06-13] MEDS: SYMBICORT 160-4.5 MCG INHALER INHALATION SCH ×3 (08:49→22:19)
[2019-06-13] MEDS: NICOTINE 7MG/24HR PATCH TRANSDERM SCH (08:50)
[2019-06-13] MEDS: GABAPENTIN 400 MG CAP PO SCH ×3 (08:51→22:19)
[2019-06-13] MEDS: VORTIOXETINE HYDROBROMIDE 20 MG TABLET PO SCH (08:52)
[2019-06-13] MEDS: CEFDINIR 300 MG CAP PO SCH ×2 (08:52→22:18)
[2019-06-13] MEDS: busPIRone HCl 10 MG TAB PO SCH ×2 (08:52→22:16)
[2019-06-13] MEDS: LISINOPRIL 10 MG TAB PO SCH (08:52)
[2019-06-13] MEDS: PRAVASTATIN SODIUM 40 MG TAB PO SCH (08:52)
[2019-06-13] MEDS: CHOLECALCIFEROL 1,000 UNIT TAB PO SCH (08:52)
[2019-06-13] MEDS: PROPRANOLOL 40 MG TAB PO SCH (08:53)
[2019-06-13] MEDS: oxyCODONE-APAP 10-325MG 1 EACH TAB PO PRN ×3 (08:56→22:22)
[2019-06-13] MEDS ORDERED: VRAYLAR 3 MG PO SCH (09:00)
[2019-06-13] MEDS: DOCUSATE 100 MG CAP PO PRN ×2 (12:13→22:36)
--- NOTE | 2019-06-13 13:17 | P.PN ---
Progress Note - Text Progress Note Date: 06/13/19 Subjective: Patient was seen today as a cross coverage for . The patient was evaluated, chart reviewed, case discussed with the treatment team. Patient reported poor and interrupted sleep last night, but better appetite today. Patient has been going to groups and other unit activities. The patient is compliant with her medications and denies any adverse reactions. She reports feeling some improvement in her mood and minimizes depression and hopelessness. She minimizes suicidal thoughts today. Denies any hallucination, paranoid ideation, and no delusions could be elicited. Reports didn't start Vraylar yet because awaiting for the nurse to deliver the medication to the pharmacy. Objective: Vitals has been reviewed. Mental status examination; Appearance: Appears stated age, fairly groomed, above average body built, and no specific features. Gait/ posture: Steady gait, normal arm swinging, no abnormal movements, with relaxed posture. Attitude and Behavior: engaged, cooperative, fair eye contact during course of interview. Motor Activity: normal psychomotor activity. Speech: spontaneous, normal rate, rhythm, and articulation. normal volume. not pressured. Language: Articulating, naming objects and repeat phrases. Mood: "depressed" Affect: Restricted. Thought process: linear, goal-directed. Association: intact. Thought content: Denies delusions, Reports suicidal thoughts, denies homicidal thoughts, Denies intentions, or plans. Perception: Denies any hallucinations Alertness: No impairment. Concentration: Impaired Orientation: Oriented to time, person, place and situation. Insight regarding psychiatric condition: Fair Judgment regarding daily activities and social situation: fair Impulse control: fair Assessment: Bipolar disorder, unspecified. Rule out Bipolar II Rule out Generalized anxiety disorder Rule out Cannabis use disorder. Plan: CContinue the patient inpatient for safety. Continue the patient under 15 minutes safe check for safety. Psych education regarding her diagnosis, and treatment option. The patient will also be provided with individual therapy, group therapy, substance abuse counseling, gain insight, and coping skills. Consider medical consultation if any acute medical issue arise. Medications: Continue Vraylar and increase dose to 3 mg daily for mood stabilization. continue Trintillex 20 mg daily for depression and anxiety Continue Buspar 30 mg BID for anxiety Continue Vistaril PRN for anxiety Continue Melatonin at bedtime for insomnia Start Trazodone 50 mg PRN insomnia The patient will be assessed on daily basis for his depression, suicidal ideation, and will be discharged back to his outpatient mental health provider upon stabilization. Discharge patient to OUTPATIENT services upon a stabilization
[2019-06-13] MEDS: hydrOXYzine PAMOATE 25 MG CAP PO PRN (13:22)
[2019-06-13] MEDS: VRAYLAR 1.5 MG PO SCH (15:05)
[2019-06-13] MEDS: MELATONIN 5 MG TABLET PO SCH (22:16)
[2019-06-13] MEDS: traZODone HCL 50 MG TAB PO PRN (22:21)
[2019-06-14] MEDS: NICOTINE 7MG/24HR PATCH TRANSDERM SCH (09:08)
[2019-06-14] MEDS: CEFDINIR 300 MG CAP PO SCH ×2 (09:09→20:55)
[2019-06-14] MEDS: SYMBICORT 160-4.5 MCG INHALER INHALATION SCH ×2 (09:09→21:01)
[2019-06-14] MEDS: busPIRone HCl 10 MG TAB PO SCH ×2 (09:09→20:55)
[2019-06-14] MEDS: LISINOPRIL 10 MG TAB PO SCH (09:10)
[2019-06-14] MEDS: GABAPENTIN 400 MG CAP PO SCH ×3 (09:10→20:58)
[2019-06-14] MEDS: CHOLECALCIFEROL 1,000 UNIT TAB PO SCH (09:10)
[2019-06-14] MEDS: VRAYLAR 1.5 MG PO SCH (09:11)
[2019-06-14] MEDS: PROPRANOLOL 40 MG TAB PO SCH (09:11)
[2019-06-14] MEDS: VORTIOXETINE HYDROBROMIDE 20 MG TABLET PO SCH (09:11)
[2019-06-14] MEDS: PRAVASTATIN SODIUM 40 MG TAB PO SCH (09:11)
[2019-06-14] MEDS: oxyCODONE-APAP 10-325MG 1 EACH TAB PO PRN ×2 (09:16→16:36)
[2019-06-14] MEDS: hydrOXYzine PAMOATE 25 MG CAP PO PRN (11:26)
--- NOTE | 2019-06-14 12:48 | P.PN ---
Progress Note - Text Progress Note Date: 06/14/19 Interval History: Patient was seen today wandering the hallways and was urgently wanting to speak with curriculum writer in the office. Patient was directable and cooperative with the interview. She states that she was feeling "really stressed out at home" and explained the circumstances binder coming in the hospital. She states that she was feeling suicidal and feeling overwhelmed with taking care of her son with autism and ODD. She states that currently he is having difficulties with homework and she states that it is a "daily fight and I'm tired of doing it". She states that she is getting some help from her mother. Patient claims that her depression started several months ago when her nieces moved away from her. She states that since being in the hospital her mood has been gradually getting better however states that she is still having mood swings. She states that her energy is fair during the day and last night got better sleep on trazodone. At this time patient denies any suicidal or homical ideations, intent or plan. Patient denies any auditory, visual hallucinations and denies any paranoia or delusions. Patient denies any side effects from the medications and has been compliant with meds. Mental Status Exam: General Appearance: Patient appears to be overweight, stated age is alert, directable, and cooperative. Marginal hygiene and grooming. Behavior: Patient is calmly seated without any agitated behavior. Attempted to cooperate. Speech: Patient's speech is fluent and nonpressured. Soft tone. Mood/Affect: Mood is improving mildly, affect is congruent and constricted. Suicidality/Homicidality: Patient denies having any suicidal or homicidal ideation intent or plan. Perceptions: Patient denies any visual hallucinations and denies any auditory hallucinations Though content/process: There is no evidence of any delusional thought content and thought process is linear and goal-directed. Focused on discharge and minimized her symptoms. Memory and concentration: AOX3, grossly intact for the purposes of this session Judgment and insight: Poor. Assessment Bipolar disorder, unspecified. Rule out Bipolar II Rule out Generalized anxiety disorder Rule out Cannabis use disorder. Plan: -Patient continues to meet criteria for inpatient psychiatric admission for symptom stabilization and safety. Patient has signed adult voluntary form and medication consent and was placed in patient's chart. -Medications: Can continue with Vraylar 3 mg daily for mood stabilization, intelligence 20 mg daily for depression and anxiety, BuSpar 30 mg twice a day for anxiety, Vistaril when necessary for anxiety, melatonin at bedtime for insomnia and trazodone 50 mg when necessary for insomnia daily at bedtime. Added Lamictal 25 mg twice a day for mood stabilization/depression. Advised patient to do regular skin checks and informed her of the potential for side effects including a rash and to notify staff immediately if she does notice a rash, patient verbally understood and agreed. -NRT - nicotine patch -SW on board for discharge planning. Encouraged the patient to participate in milieu. Likely discharge in 2-3 days.
[2019-06-14] MEDS: lamoTRIgine 25 MG TAB PO SCH ×2 (13:26→20:56)
[2019-06-14] MEDS: MELATONIN 5 MG TABLET PO SCH (20:56)
[2019-06-14] MEDS: traZODone HCL 50 MG TAB PO PRN (20:58)
[2019-06-15] MEDS: busPIRone HCl 10 MG TAB PO SCH ×2 (08:58→20:56)
[2019-06-15] MEDS: CEFDINIR 300 MG CAP PO SCH ×2 (08:58→20:57)
[2019-06-15] MEDS: GABAPENTIN 400 MG CAP PO SCH ×3 (08:58→20:56)
[2019-06-15] MEDS: SYMBICORT 160-4.5 MCG INHALER INHALATION SCH ×2 (08:58→20:55)
[2019-06-15] MEDS: LISINOPRIL 10 MG TAB PO SCH (08:58)
[2019-06-15] MEDS: VORTIOXETINE HYDROBROMIDE 20 MG TABLET PO SCH (08:59)
[2019-06-15] MEDS: VRAYLAR 1.5 MG PO SCH (08:59)
[2019-06-15] MEDS: PROPRANOLOL 40 MG TAB PO SCH (08:59)
[2019-06-15] MEDS: NICOTINE 7MG/24HR PATCH TRANSDERM SCH (08:59)
[2019-06-15] MEDS: CHOLECALCIFEROL 1,000 UNIT TAB PO SCH (08:59)
[2019-06-15] MEDS: lamoTRIgine 25 MG TAB PO SCH ×2 (08:59→20:55)
[2019-06-15] MEDS: oxyCODONE-APAP 10-325MG 1 EACH TAB PO PRN ×3 (09:01→21:34)
--- NOTE | 2019-06-15 10:15 | P.PN ---
Progress Note - Text Progress Note Date: 06/15/19 Interval History: Patient was seen today participating in group and was directable and agreeable to speak with investigative writer in the office. Patient was directable and cooperative with the interview and appeared to be calmer this morning. She states that she has been going to groups and finding them beneficial. She states that she is "worried about my son" and went on to speak about his challenges with homework and how her mother is helping out currently taking care of him and she feels guilty about it. She states that her mood is still depressed however it has been improving and claims that her mood swings have also been improving as well and feels less irritable. She states that her energy is fair during the day and last night was able to sleep well throughout the night and offered overnight complaints. At this time patient denies any suicidal or homical ideations, intent or plan. Patient denies any auditory, visual hallucinations and denies any paranoia or delusions. Patient denies any side effects from the medications and has been compliant with meds. Mental Status Exam: General Appearance: Patient appears to be overweight, stated age is alert, directable, and cooperative. Marginal hygiene and grooming. Behavior: Patient is calmly seated without any agitated behavior. Cooperative Speech: Patient's speech is fluent and nonpressured. Soft tone. Mood/Affect: Mood is depressed, improving, affect is congruent and constricted. Suicidality/Homicidality: Patient denies having any suicidal or homicidal ideation intent or plan. Perceptions: Patient denies any visual hallucinations and denies any auditory hallucinations Though content/process: There is no evidence of any delusional thought content and thought process is linear and goal-directed Memory and concentration: AOX3, grossly intact for the purposes of this session Judgment and insight: Poor, improving mildly. Assessment Bipolar disorder, unspecified. Rule out Bipolar II Rule out Generalized anxiety disorder Rule out Cannabis use disorder. Plan: -Patient continues to meet criteria for inpatient psychiatric admission for symptom stabilization and safety. Patient has signed adult voluntary form and medication consent and was placed in patient's chart. -Medications: Can continue with Vraylar 3 mg daily for mood stabilization, Trintellix 20 mg daily for depression and anxiety, BuSpar 30 mg twice a day for anxiety, Vistaril when necessary for anxiety, melatonin at bedtime for insomnia and trazodone 50 mg when necessary for insomnia daily at bedtime. Increased Lamictal 50 mg twice a day for mood stabilization/depression. Patient denies any rashes at this time and has been checking her skin regularly. -NRT - nicotine patch -SW on board for discharge planning. Encouraged the patient to participate in milieu. Likely discharge tomorrow back home. Mother will come in for a family meeting.
[2019-06-15] MEDS: PRAVASTATIN SODIUM 40 MG TAB PO SCH (11:17)
[2019-06-15] MEDS: ONDANSETRON 4 MG TAB PO PRN (11:20)
[2019-06-15] MEDS: MELATONIN 5 MG TABLET PO SCH (20:55)
[2019-06-15] MEDS: traZODone HCL 50 MG TAB PO PRN (20:58)
[2019-06-16 07:01] VITALS: RESP 16; TEMP 98.3
[2019-06-16] MEDS: NICOTINE 7MG/24HR PATCH TRANSDERM SCH (08:54)
[2019-06-16] MEDS: busPIRone HCl 10 MG TAB PO SCH (08:55)
[2019-06-16] MEDS: PROPRANOLOL 40 MG TAB PO SCH (08:55)
[2019-06-16] MEDS: PRAVASTATIN SODIUM 40 MG TAB PO SCH (08:55)
[2019-06-16] MEDS: VORTIOXETINE HYDROBROMIDE 20 MG TABLET PO SCH (08:55)
[2019-06-16] MEDS: LISINOPRIL 10 MG TAB PO SCH (08:55)
[2019-06-16] MEDS: lamoTRIgine 25 MG TAB PO SCH (08:55)
[2019-06-16] MEDS: CEFDINIR 300 MG CAP PO SCH (08:55)
[2019-06-16] MEDS: CHOLECALCIFEROL 1,000 UNIT TAB PO SCH (08:55)
[2019-06-16] MEDS: VRAYLAR 1.5 MG PO SCH (08:56)
[2019-06-16] MEDS: oxyCODONE-APAP 10-325MG 1 EACH TAB PO PRN (08:57)
[2019-06-16] MEDS: GABAPENTIN 400 MG CAP PO SCH (08:58)
[2019-06-16 09:03] VITALS: BP 142/81; PULSE 111
[2019-06-16] MEDS: hydrOXYzine PAMOATE 25 MG CAP PO PRN (09:44)
[2019-06-16] MEDS: ONDANSETRON 4 MG TAB PO PRN (10:59)
--- NOTE | 2019-06-16 11:14 | P.DS ---
Providers Date of admission: 06/11/19 17:24 Expected date of discharge: 06/16/19 Attending physician: Navjot Zavaleta MD Consults: 06/11/19 17:49 Consult Physician Routine Consulting Provider: Tiarra Jimenez Consult Reason/Comments: follow up H & P Do you want consulting provider notified?: Yes Primary care physician: Tiarra Jimenez - Discharge Diagnosis(es) (1) Bipolar disorder, unspecified Current Visit: Yes Status: Acute Priority: High (2) Generalized anxiety disorder Current Visit: Yes Status: Acute Priority: Medium (3) Cannabis use disorder, mild, abuse Current Visit: Yes Status: Acute Priority: Low Hospital Course: Admission HPI: Admission note was completed by Dr. Watson "Sandy Sears is a 38-year-old single female who currently lives with her mother and 12-year-old son, unemployed on SSI, has psychiatric history of bipolar II, ADD, cannabis use disorder, and medical history of Hypertension, hyperpiesia, migraine, chronic back pain. The patient has been admitted to our inpatient psychiatric services after been transferred from [facility] ED. Patient was initially brought to ED accompanied by her therapist because patient reported feeling increasingly depressed, suicidal and was burning herself. The patient has been admitted on voluntary basis to our service. As per ED note: " 38-year-old female with history of depression and anxiety presenting with suicidal ideation and worsening depression. Patient denies suicide attempt. She states her symptoms have been building for the past several weeks. She's had increased thoughts of suicide but does not currently have a plan. She's had inpatient psychiatric treatment in the past. She denies any physical complaints. Denies alcohol or drugs of abuse." The patient was evaluated today. She reports have been feeling more depressed, hopeless with increased suicidal thoughts and feeling constantly overwhelmed and stressed. She reports was at therapy session yesterday when she disclosed to her therapy about suicidal thoughts and started to burn herself 2 weeks ago to cope with stress and relief her tension and sense of overwhelming. Therapist brought the patient to ED and patient was admitted. Patient is currently receiving outpatient treatment at [facility] and her current medications Vraylar 1.5 mg daily, Trintillex 20 mg daily, Buspar 30 mg BID and Vistaril as needed for anxiety. Patient reports has been taking her medications as prescribed but she continued to feel increasingly depressed and suicidal over the past 2-3 weeks. She reports symptoms of feeling depressed most of the time, lost interest/ motivation, sleep disturbances either sleep for long hours or insomnia, feeling helpless, hopeless, and worthless. The patient reports severe mood swings with times feeling very irritable and "internally angry" but denies outburst of rage or aggressive behavior. Reportedly the patient has access to guns at home, and her family are working to remove the guns from home as per ED SW report yesterday. Patient reports previous history of suicidal attempts with last time was November 2018. She denies classic manic episodes but reports times of feeling "very excited that usual", more energetic that could last for few hours. Denies current or previous symptoms of euphoric mood, irrational/ impulsive behavior. She reports history of severe anxiety that she worries out of proportion to the situations. She admits for always has racing thoughts and feels very tense. She reports physical symptoms of anxiety including racing heart, stomach cramps, sweating and twitching. Panic attacks was reported by the patient as "infrequent with last time was few months ago". Patient reports history of social anxiety and avoidance social interactions. In regard of PTSD symptoms; patient denies symptoms of flashbacks, nightmares and intrusive thoughts related to prior psychological traumas. Patient denies history of psychosis including hallucinations, PI and no delusions could be elicited. She reports returned back to [facility] 2 weeks ago by burning herself using a postdoctoral research associate and usually burn herself at her uncles. She reports history of cutting herself as a teenager. Hospital course: Upon admission to the unit patient was initially depressed and suicidal. Patient was however directable and agreeable to commence treatment. Patient got along well with other patients on the unit and followed unit protocol. Patient was compliant with the medications and denied any side effects throughout hospital course. Patient was started on her home dose of Vraylar which was titrated up to 3 mg daily for mood stabilization, Trintellix 20 mg daily for depression and anxiety, BuSpar 30 mg twice a day for anxiety, Vistaril and necessary for anxiety and melatonin at bedtime for insomnia. Patient was also started on trazodone 50 mg when necessary for insomnia/mood at nighttime. Patient was also started on Lamictal and titrated up to a dose of 50 mg twice a day for mood stabilization/depression. Patient was informed of the risks of the medications and advised to monitor her skin for any rashes related to Lamictal, patient verbally understood and agreed and did not report any rashes during hospitalization. Patient spoke of her stressors and engaged in therapy both group and individual. Patient was also seen by medical team for history and physical exam. Throughout the course of the hospitalization patient gradually improved with regards to mood, suicidal thoughts, anxiety, sleep and became future oriented with improved insight and judgment. On the day of discharge patient denied any suicidal or homicidal ideations intent or plan denied any aud itory or visual hallucinations. Patient endorsed wanting to live for her kid and her family. The patient stated that her mother owned a gun which was kept in a safe locked away and she did not have the code or access to it. Patient denied any paranoia and did not endorse any delusions. Patient does have a significant history of substance abuse and was counseled on abstaining from all substances including alcohol and marijuana. Patient was also counseled on the medications and need for regular compliance and was encouraged to follow-up with their outpatient appointment for mental health and also for primary care. Prior to discharge a family meeting will be arranged by criminal justice social worker to answer any questions and ensure safety upon discharge. Mental status exam: General Appearance: Patient appears to be overweight and stated age is alert, pleasant, and cooperative. Patient is in no acute distress and has fair hygiene and grooming Behavior: Patient is calmly seated without any agitated behavior. Speech: Patient's speech is fluent and nonpressured. Mood/Affect: Patient reports their mood is "much better", affect is congruent and euthymic. Suicidality/Homicidality: Patient denies having any suicidal or homicidal ideation intent or plan. Perceptions: Patient denies any auditory or visual hallucinations. Though content/process: There is no evidence of any delusional thought content and thought process is linear and goal-directed. More future oriented. Memory and concentration: AOX3, grossly intact for the purposes of this session. Can spell "WORLD" backwards correctly. Judgment and insight: improved with guarded prognosis Impression: Bipolar disorder unspecified Generalized anxiety disorder Cannabis use disorder, mild Plan: -Continue with discharge today as patient has improved and stabilized psychiatrically and is not currently an imminent threat to herself and/or others. -Continue medications: Continue with Vraylar 3 mg daily for mood stabilization, Trintellix 20 mg daily for depression and anxiety, BuSpar 30 mg twice a day for anxiety, Vistaril 50 mg twice a day necessary for anxiety and melatonin at bedtime for insomnia. Continue with trazodone 50 mg when necessary for insomnia/mood at nighttime, Lamictal and titrated up to a dose of 50 mg twice a day for mood stabilization/depression. Patient was informed about the risks of possible rash with Lamictal and was advised to continue monitoring skin and maintain compliance of medication and seek urgent medical attention if she does notice a rash, patient verbally understood and agreed. -Patient was counseled on the need for medication compliance and appropriate follow-up at mental health and also primary care for medical issues. Patient verbalized understanding and agreed. -Social work to arrange for and conduct family meeting to ensure safety upon discharge and answer any questions/concerns. Social work also to arrange for patients follow up appointments with Dr. Palacios for psychiatric care along with follow up with primary care provider. Patient also has a therapist which she sees regularly and was encouraged to continue on with treatment. -Patient counseled on abstaining from recreational drugs and marijuana and alcohol. Was informed/educated on the adverse effects on their physical and mental health. Patient verbally agreed and understood. -Patient was instructed to return to the hospital or seek immediate medical care if their psychiatric or medical symptoms do worsen or reoccur. Allergies Allergy/AdvReac Type Severity Reaction Status Date / Time bee venom protein (honey bee) Allergy Rash/Hives Verified 06/11/19 19:14 omeprazole Allergy Rash/Hives Verified 06/11/19 19:14 Laboratory Results WBC 7.7 k/uL (3.8-10.6) 06/12/19 07:15 RBC 4.39 m/uL (3.80-5.40) 06/12/19 07:15 Hgb 12.7 gm/dL (11.4-16.0) 06/12/19 07:15 Hct 39.0 % (34.0-46.0) 06/12/19 07:15 MCV 88.9 fL (80.0-100.0) 06/12/19 07:15 MCH 28.9 pg (25.0-35.0) 06/12/19 07:15 MCHC 32.6 g/dL (31.0-37.0) 06/12/19 07:15 RDW 12.2 % (11.5-15.5) 06/12/19 07:15 Plt Count 314 k/uL (150-450) 06/12/19 07:15 Neutrophils % 56 % 06/12/19 07:15 Lymphocytes % 33 % 06/12/19 07:15 Monocytes % 6 % 06/12/19 07:15 Eosinophils % 2 % 06/12/19 07:15 Basophils % 0 % 06/12/19 07:15 Neutrophils # 4.3 k/uL (1.3-7.7) 06/12/19 07:15 Lymphocytes # 2.6 k/uL (1.0-4.8) 06/12/19 07:15 Monocytes # 0.5 k/uL (0-1.0) 06/12/19 07:15 Eosinophils # 0.2 k/uL (0-0.7) 06/12/19 07:15 Basophils # 0.0 k/uL (0-0.2) 06/12/19 07:15 Sodium 138 mmol/L (137-145) 06/12/19 07:15 Potassium 4.6 mmol/L (3.5-5.1) 06/12/19 07:15 Chloride 102 mmol/L (98-107) 06/12/19 07:15 Carbon Dioxide 31 mmol/L (22-30) H 06/12/19 07:15 Anion Gap 5 mmol/L 06/12/19 07:15 BUN 10 mg/dL (7-17) 06/12/19 07:15 Creatinine 0.68 mg/dL (0.52-1.04) 06/12/19 07:15 Est GFR (CKD-EPI)AfAm >90 (>60 ml/min/1.73 sqM) 06/12/19 07:15 Est GFR (CKD-EPI)NonAf >90 (>60 ml/min/1.73 sqM) 06/12/19 07:15 Glucose 90 mg/dL (74-99) 06/12/19 07:[address] Glu mg/dL 111 06/12/19 07:15 Hemoglobin A1c 5.5 % (4.0-6.0) 06/12/19 07:15 Calcium 9.2 mg/dL (8.4-10.2) 06/12/19 07:15 Total Bilirubin 0.5 mg/dL (0.2-1.3) 06/12/19 07:15 AST 29 U/L (14-36) 06/12/19 07:15 ALT 23 U/L (4-34) 06/12/19 07:15 Alkaline Phosphatase 75 U/L (38-126) 06/12/19 07:15 Total Protein 7.2 g/dL (6.3-8.2) 06/12/19 07:15 Albumin 4.1 g/dL (3.5-5.0) 06/12/19 07:15 Triglycerides 105 mg/dL (<150) 06/12/19 07:15 Cholesterol 215 mg/dL (<200) H 06/12/19 07:15 LDL Cholesterol, Calc 133 mg/dL (0-99) H 06/12/19 07:15 HDL Cholesterol 61 mg/dL (40-60) H 06/12/19 07:15 TSH 1.250 mIU/L (0.465-4.680) 06/12/19 07:15 Urine Color Light Yellow 06/11/19 14:05 Urine Appearance Clear (Clear) 06/11/19 14:05 Urine pH 5.5 (5.0-8.0) 06/11/19 14:05 Ur Specific [place] 1.010 (1.001-1.035) 06/11/19 14:05 Urine Protein Negative (Negative) 06/11/19 14:05 Urine Glucose (UA) Negative (Negative) 06/11/19 14:05 Urine Ketones Negative (Negative) 06/11/19 14:05 Urine Blood Negative (Negative) 06/11/19 14:05 Urine Nitrite Negative (Negative) 06/11/19 14:05 Urine Bilirubin Negative (Negative) 06/11/19 14:05 Urine Urobilinogen <2.0 mg/dL (<2.0) 06/11/19 14:05 Ur Leukocyte Esterase Negative (Negative) 06/11/19 14:05 Urine HCG, Qual Not Detected (Not Detectd) 06/11/19 14:05 Urine Opiates Screen Detected (NotDetected) H 06/11/19 14:05 Ur Oxycodone Screen Not Detected (NotDetected) 06/11/19 14:05 Urine Methadone Screen Not Detected (NotDetected) 06/11/19 14:05 Ur Propoxyphene Screen Not Detected (NotDetected) 06/11/19 14:05 Ur Barbiturates Screen Detected (NotDetected) H 06/11/19 14:05 U Tricyclic Antidepress Not Detected (NotDetected) 06/11/19 14:05 Ur Phencyclidine Scrn Not Detected (NotDetected) 06/11/19 14:05 Ur Amphetamines Screen Not Detected (NotDetected) 06/11/19 14:05 U Methamphetamines Scrn Not Detected (NotDetected) 06/11/19 14:05 U Benzodiazepines Scrn Detected (NotDetected) H 06/11/19 14:05 Urine Cocaine Screen Not Detected (NotDetected) 06/11/19 14:05 U Marijuana (THC) Screen Detected (NotDetected) H 06/11/19 14:05 Vital Signs Temp 98.3 F 06/16/19 06:31 Pulse 111 H 06/16/19 09:02 Resp 16 06/16/19 06:31 BP 142/81 06/16/19 09:02 Pulse Ox 97 06/15/19 06:51 Patient Condition at Discharge: Stable Plan - Discharge Summary Discharge Rx Participant: Yes New Discharge Prescriptions: New traZODone HCL [Desyrel] 50 mg PO HS PRN 30 Days tab PRN Reason: Insomnia Nicotine 7Mg/24Hr Patch [Habitrol] 1 patch TRANSDERM DAILY 14 Days patch lamoTRIgine [LaMICtal] 50 mg PO BID 30 Days tab Cefdinir [Omnicef] 300 mg PO BID 3 Days cap Acetaminophen Tab [Tylenol] 650 mg PO Q4HR PRN tab PRN Reason: Mild Pain/Discomfort Cariprazine HCl [Vraylar] 3 mg PO DAILY 30 Days capsule Continue Lisinopril [Prinivil] 10 mg PO DAILY Vortioxetine Hydrobromide [Trintellix] 20 mg PO DAILY Pravastatin Sodium [Pravachol] 40 mg PO DAILY Albuterol Inhaler [Ventolin Hfa Inhaler] 2 puff INHALATION RT-BID PRN PRN Reason: Shortness Of Breath oxyCODONE-APAP 10-325MG [Percocet 10-325 mg] 1 tab PO TID Gabapentin [Neurontin] 400 mg PO TID Butalb/APAP/Caff 50-325-40Mg [Fioricet 50-325-40] 1 tab PO BID PRN PRN Reason: Migraine Headache busPIRone HCL [Buspar] 30 mg PO BID hydrOXYzine PAMOATE [Vistaril] 50 mg PO BID PRN PRN Reason: Anxiety Rizatriptan Benzoate [Maxalt] 10 mg PO Q12H PRN PRN Reason: Migraine Headache Melatonin 10 mg PO HS Docusate [Colace] 100 mg PO BID Cholecalciferol [Vitamin D3 (25 Mcg = 1000 Iu)] 1,000 unit PO DAILY Propranolol [Inderal] 40 mg PO DAILY Ondansetron [Zofran] 4 mg PO Q4H PRN PRN Reason: Nausea Fluticasone/Salmeterol [Airduo Respiclick 113-14 Mcg] 1 puff INHALATION RT- BID EPINEPHrine (Auto Inject) [Epipen] 0.3 mg IM ONCE PRN PRN Reason: Anaphylaxis Discontinued Cyclobenzaprine [Flexeril] 10 mg PO TID PRN PRN Reason: Muscle Spasm Cariprazine HCl [Vraylar] 1.5 mg PO DAILY Discharge Medication List Lisinopril [Prinivil] 10 mg PO DAILY 03/04/16 [History] Pravastatin Sodium [Pravachol] 40 mg PO DAILY 10/15/16 [History] Vortioxetine Hydrobromide [Trintellix] 20 mg PO DAILY 10/15/16 [History] Albuterol Inhaler [Ventolin Hfa Inhaler] 2 puff INHALATION RT-BID PRN 05/05/17 [History] oxyCODONE-APAP 10-325MG [Percocet 10-325 mg] 1 tab PO TID 01/30/18 [History] Gabapentin [Neurontin] 400 mg PO TID 08/03/18 [History] Butalb/APAP/Caff 50-325-40Mg [Fioricet 50-325-40] 1 tab PO BID PRN 06/09/19 [History] Melatonin 10 mg PO HS 06/09/19 [History] Rizatriptan Benzoate [Maxalt] 10 mg PO Q12H PRN 06/09/19 [History] busPIRone HCL [Buspar] 30 mg PO BID 06/09/19 [History] hydrOXYzine PAMOATE [Vistaril] 50 mg PO BID PRN 06/09/19 [History] Cholecalciferol [Vitamin D3 (25 Mcg = 1000 Iu)] 1,000 unit PO DAILY 06/11/19 [History] Docusate [Colace] 100 mg PO BID 06/11/19 [History] EPINEPHrine (Auto Inject) [Epipen] 0.3 mg IM ONCE PRN 06/11/19 [History] Fluticasone/Salmeterol [Airduo Respiclick 113-14 Mcg] 1 puff INHALATION RT-BID 06/11/19 [History] Ondansetron [Zofran] 4 mg PO Q4H PRN 06/11/19 [History] Propranolol [Inderal] 40 mg PO DAILY 06/11/19 [History] Acetaminophen Tab [Tylenol] 650 mg PO Q4HR PRN tab 06/16/19 [Rx] Cariprazine HCl [Vraylar] 3 mg PO DAILY 30 Days capsule 06/16/19 [Rx] Cefdinir [Omnicef] 300 mg PO BID 3 Days cap 06/16/19 [Rx] Nicotine 7Mg/24Hr Patch [Habitrol] 1 patch TRANSDERM DAILY 14 Days patch 06/16/19 [Rx] lamoTRIgine [LaMICtal] 50 mg PO BID 30 Days tab 06/16/19 [Rx] traZODone HCL [Desyrel] 50 mg PO HS PRN 30 Days tab 06/16/19 [Rx] Follow up Appointment(s)/Referral(s): [facility] [Outside] - 06/21/19 9:00 am (Meghan Travis 06/20 @ 0900 Dr Palacios 06/24 @ 08:40) Tiarra Jimenez MD [Primary Care Provider] - 1-2 days Activity/Diet/Wound Care/Special Instructions: Activity and diet as tolerated. Avoid the use of street drugs and alcohol. Take all medications as prescribed. When you are in need of refills on your medications please contact your medical provider and/or outpatient psychiatrist to have this done. Please go to scheduled outpatient appointment for aftercare treatment. If symptoms return or become worse, call the crisis line at and/or go to the nearest emergency room for evaluation. Discharge Disposition: HOME SELF-CARE
== END 2019-06-16 12:25 | disposition home or self-care (01) | DRG 885 ==
LOC: EC 12:37 → 3MHU 17:24
PROVIDERS: ADMIT Psychiatry & Neurology Psychiatry; ATTEND Psychiatry & Neurology Psychiatry
DX: F31.81 Bipolar II disorder (principal); J44.0 Chronic obstructive pulmonary disease with (acute) lower respiratory infection; R45.851 Suicidal ideations; F12.10 Cannabis abuse, uncomplicated; F41.0 Panic disorder [episodic paroxysmal anxiety]; F41.1 Generalized anxiety disorder; F43.10 Post-traumatic stress disorder, unspecified; G47.00 Insomnia, unspecified; G89.29 Other chronic pain; I10 Essential (primary) hypertension; J20.9 Acute bronchitis, unspecified; T30.0 Burn of unspecified body region, unspecified degree; E78.5 Hyperlipidemia, unspecified; Z79.899 Other long term (current) drug therapy; Z80.7 Family history of other malignant neoplasms of lymphoid, hematopoietic and related tissues; Z82.49 Family history of ischemic heart disease and other diseases of the circulatory system; Z87.891 Personal history of nicotine dependence; Z91.5 Personal history of self-harm; Z88.8 Allergy status to other drugs, medicaments and biological substances; Z91.030 Bee allergy status; J45.909 Unspecified asthma, uncomplicated; M54.9 Dorsalgia, unspecified; G43.909 Migraine, unspecified, not intractable, without status migrainosus; F98.8 Other specified behavioral and emotional disorders with onset usually occurring in childhood and adolescence; Z56.0 Unemployment, unspecified
CPT/HCPCS: 80053; 80061; 80306; 81003; 81025; 82075; 83036; 84443; 85025; 94640; 99285

== ENCOUNTER → 2019-08-27 | Outpatient (CLI) | payer OTHER | END | disposition home or self-care (01) | LOC: LABWHC1 11:33 | PROVIDERS: ATTEND Anesthesiology | DX: Z11.59 Encounter for screening for other viral diseases (principal) | CPT/HCPCS: 87635 ==

== ENCOUNTER → 2019-08-31 | Day surgery (SDC) | payer OTHER ==
[2019-08-27 09:31] VITALS: BMI 43.9
[~2019-08-31] MED LIST changes: -IV FLUID CONTINUATION 1,000 ML IV ONE; +IV FLUID CONTINUATION 500 ML IV ONE; -LACTATED RINGERS 1,000 ML IV ONE; +LIDOCAINE 1% (10MG/ML) FOR IV START INTRADERMA ONE; +LIDOCAINE 4% (PF) 5 ML AMP ONE; +MIDAZOLAM 2 MG/2 ML VIAL ONE; +fentaNYL (PF) 50 MCG/ML 2 ML AMP ONE
[2019-08-31 08:28] VITALS: RESP 16; TEMP 97.4
--- NOTE | 2019-08-31 09:13 | P.PCN ---
Date of Procedure: 08/31/19 Procedure(s) Performed: PREOPERATIVE DIAGNOSIS: Lumbar Spondylosis POSTOPERATIVE DIAGNOSIS: Same PROCEDURES: Radiofrequency ablation of the L3, L4, L5 medial branches for facets L4-5 and L5-S1 with fluoroscopic guidance on the left side SURGEON: Krishna Ramos MD. ANESTHESIA: Lidocaine 1% 5 mL, Moderate sedation with intravenous Versed and fentanyl, sedation time 19 minutes EBL: Minimal Fluoroscopy was used for the procedure and images were saved in the radiology portion of the chart. PROCEDURE INDICATION: The patient with low back pain secondary to lumbar facet arthropathy who had more than 50% relief of pain with previous diagnostic lumbar medial branch block X2. PROCEDURE DESCRIPTION / TECHNIQUE: The patient was seen and identified in the preoperative area. Risks, benefits, complications, including but not limited to risk of infection ,bleeding , allergic reactions to the medications and incomplete pain relief , and alternatives were discussed with the patient, the patient agreed to proceed with the procedure and signed the consent. IV was started. The operative site was marked. Patient was taken to the OR and time out was completed. The patient was placed in the prone position on the procedure table. The lumbar area was prepped and draped in the usual sterile fashion. . Vital signs were closely monitored during the procedure .IV sedation was used during the procedure to decrease patients anxiety. Using AP and then oblique fluoroscopy, the "eye of the Jorge dog" corresponding to the connection between the superior and transverse articular processes of the L4 and L5 as well as the sacral ala were identified, marked, and localized with 1% lidocaine. Subsequently, an 18 guage 150 mm radiofrequency cannula with a 10-mm active tip was advanced guided by fluoroscopy to the identified target at each site. Needle positioning was confirmed on AP, oblique and lateral fluoroscopy. Motor testing at 2.5 Hz was done with paraspinal muscle stimulation only, and no radicular symptoms down the legs. Then 1 mL of 4% lidocaine was injected in each site. Radiofrequency thermocoagulation at 80 degrees celsius for 90 seconds was then performed. [place] were removed. Sterile dressings were applied. COMPLICATIONS: No acute complications. DISPOSITION / PLANS: The patient was placed in a supine position and transferred to the recovery area in a stable condition for observation and was discharged from the recovery room after meeting discharge criteria. Home discharge instructions given to the patient by the staff. The patient will follow up for right-sided procedure in 2 weeks.
--- NOTE | 2019-08-31 09:22 | FL ---
EXAMINATION TYPE: FL guided pain mgmt statistic DATE OF EXAM: 08/31/2019 CLINICAL HISTORY: Low back pain. TECHNIQUE: Fluoroscopy. COMPARISON: None. FINDINGS: Fluoroscopic guidance was provided during pain relief procedure performed by Dr. Ramos . A total of 9 seconds of fluoroscopic time was utilized during the procedure and 6 spot images are acqui red. Images acquired shows needle localization at several levels in the lower lumbar spine and lumbo sacral junction. IMPRESSION: As Above.
[2019-08-31 09:40] VITALS: BP 104/67; PULSE 67
== END ==
LOC: ORPAIN 07:40
PROVIDERS: ATTEND Anesthesiology
DX: M47.816 Spondylosis without myelopathy or radiculopathy, lumbar region (principal); Z88.8 Allergy status to other drugs, medicaments and biological substances
CPT/HCPCS: 81025; 64635; 64636; J2001; J2250; J3010; 99152

== ENCOUNTER 2019-09-16 08:38 | Day surgery (SDC) | payer OTHER ==
[2019-09-15 10:47] VITALS: BMI 42.2
[~2019-09-16 08:38] MED LIST changes: -IV FLUID CONTINUATION 500 ML IV ONE; -LIDOCAINE 1% (10MG/ML) FOR IV START INTRADERMA ONE; -LIDOCAINE 4% (PF) 5 ML AMP ONE; -MIDAZOLAM 2 MG/2 ML VIAL ONE; -fentaNYL (PF) 50 MCG/ML 2 ML AMP ONE
[2019-09-16 08:53] VITALS: TEMP 97.8
[2019-09-16] MEDS ORDERED: LACTATED RINGERS 1,000 ML IV ONE (09:08)
[2019-09-16] MEDS ORDERED: LIDOCAINE 4% (PF) 5 ML AMP ONE (09:52)
[2019-09-16] MEDS ORDERED: fentaNYL (PF) 50 MCG/ML 2 ML AMP ONE (09:52)
[2019-09-16] MEDS ORDERED: ROPIVACAINE 5MG/ML 20ML VIAL ONE (09:52)
[2019-09-16] MEDS ORDERED: MIDAZOLAM 2 MG/2 ML VIAL ONE (09:52)
[2019-09-16] MEDS ORDERED: TRIAMCINOLONE ACETONIDE 40 MG/ML 1 ML VIAL ONE (09:52)
[2019-09-16] MEDS ORDERED: LIDOCAINE 1% INJ 10MG/ML (20 ML MDV) ONE (09:52)
--- NOTE | 2019-09-16 10:20 | P.PCN ---
Date of Procedure: 09/16/19 Description of Procedure: PREOPERATIVE DIAGNOSIS: Lumbar Spondylosis POSTOPERATIVE DIAGNOSIS: Same PROCEDURES: Radiofrequency ablation of the L3, L4, L5 medial branches for facets L4-5 and L5-S1 with fluoroscopic guidance on the RIGHT side SURGEON: Bernardo Castro MD. ANESTHESIA: Lidocaine 1% 5 mL at each site, Moderate sedation with intravenous 2mg Versed and 100mcq fentanyl, sedation time 21 minutes EBL: Minimal Fluoroscopy was used for the procedure and images were saved in the radiology portion of the chart. PROCEDURE INDICATION: The patient with low back pain secondary to lumbar facet arthropathy who had more than 50% relief of pain with previous diagnostic lumbar medial branch block X2. PROCEDURE DESCRIPTION / TECHNIQUE: The patient was seen and identified in the preoperative area. Risks, benefits, complications, including but not limited to risk of infection ,bleeding , allergic reactions to the medications and incomplete pain relief , and alternatives were discussed with the patient, the patient agreed to proceed with the procedure and signed the consent. IV was started. The operative site was marked. Patient was taken to the OR and time out was completed. The patient was placed in the prone position on the procedure table. The lumbar area was prepped and draped in the usual sterile fashion. Vital signs were closely monitored during the procedure. IV sedation was used during the procedure to decrease patients anxiety. Using AP, oblique, and then oblique fluoroscopy, the "eye of the Jorge dog" corresponding to the connection between the superior and transverse articular processes of the L4 and L5 as well as the sacral ala were identified, marked, and localized with 1% lidocaine. Subsequently, an 18 guage 150 mm radiofrequency cannula with a 10-mm active tip was advanced guided by fluoroscopy to the identified target at each site. Needle positioning was confirmed on AP, oblique and lateral fluoroscopy. Motor testing at 2.5 Hz was done with paraspinal muscle stimulation only, and no radicular symptoms down the legs. Then 1 mL of 4% lidocaine with 5mg Kenalog was injected in each site. Radiofrequency thermocoagulation at 80 degrees celsius for 90 seconds was then performed. [place] were removed. Sterile dressings were applied. COMPLICATIONS: No acute complications. DISPOSITION / PLANS: The patient was placed in a supine position and transferred to the recovery area in a stable condition for observation and was discharged from the recovery room after meeting discharge criteria. Home discharge instructions given to the patient by the staff. The patient will follow up in clinic 2-6 weeks.
[2019-09-16] MEDS ORDERED: IV FLUID CONTINUATION 1,000 ML IV ONE (10:26)
[2019-09-16 10:28] VITALS: PULSE 78; RESP 16
[2019-09-16 10:38] VITALS: BP 132/87
--- NOTE | 2019-09-16 11:15 | FL ---
EXAMINATION TYPE: FL guided pain mgmt statistic DATE OF EXAM: 09/16/2019 FLUOROSCOPY Fluoroscopy time of (not provided) was used during lumbar radiofrequency ablation. 7 image/s documen t/s the procedure.
== END 2019-09-16 10:56 | disposition home or self-care (01) ==
LOC: ORPAIN 08:38
PROVIDERS: ATTEND Anesthesiology
DX: M47.816 Spondylosis without myelopathy or radiculopathy, lumbar region (principal); Z88.8 Allergy status to other drugs, medicaments and biological substances
CPT/HCPCS: 81025; 64635; 64636; J2001 ×2; J2250; J3301; J3010; J2795; 99152

== ENCOUNTER → 2019-10-27 | Outpatient (CLI) | payer OTHER ==
--- NOTE | 2019-10-27 10:57 | P.PAINPG ---
Subjective Progress Note Date: 10/27/19 This is a follow-up visit for this 39-year-old female patient with a history of severe and chronic low back pain secondary to lumbar degenerative disc disease, lumbar facet arthropathy, We have done an interventional pain procedure radiofrequency ablation medial branch lumbar area on 08/31/2019 for the left side and on 09/16/2019 for the right side. She returns today for follow-up. She reports good pain relief from this procedure, although she does note she has some pain in the area above rad iofrequency ablation. Pain in the back is rated at 4/10. Today, her primary complaint is right knee pain, this has been worse over the last 1 week when she has been working in her pool. Pain is worse with position changes and climbing stairs, better with off loading. The patient currently on Percocet 10/325 every 8 hours Neurontin 600 mg 3 times a day Flexeril 10 mg daily at bedtime (prescription refills from Dr. Mckeon) Patient denies any side effect of the medication , patient denies any excessive drowsiness or sleepiness, patient denies any suicidal ideation, Patient reported that the current medication is helping to control the pain and improve the activity of daily livings, Patient denies any motor or sensory deficit, denies any change in the bowel movement or urination, patient denies any fever or night sweats Review of systems is negative for chest pain, shortness of breath, new onset weakness, numbness/tingling, abdominal pain, malaise, fever, night sweats, chills, homicidal or suicidal ideation, or bowel or bladder incontinence. She does report being stressed about caring for her 12-year-old autistic son. Objective Physical exam: Vitals: Reviewed in EMR GENERAL: Well appearing, in no acute distress PSYCH: Mood and affect is appropriate. Awake, alert, and oriented SKIN: Skin color, texture, turgor normal, no rashes or lesions HEENT: Normocephalic, atraumatic. EOM intact CV: No pedal edema RESP: Respirations are unlabored, no audible wheezing GI: Abdomen non-distended MUSCULOSKELETAL: Bilateral lower extremity strength is normal and symmetric. No atrophy or tone abnormalities are noted. Lumbar spine: Straight leg raising in the sitting position is negative for radicular pain. No pain to palpation over the lumbar spine and paraspinous muscles. Negative for pain with facet loading and back extension/rotation. Normal range of motion without pain reproduction Extremities: Right kneetenderness to palpation along patella. Anterior and posterior drawer signs are negative. No tenderness to palpation along joint lines. No obvious swelling or deformity noted Gait: Gait is antalgic, patient favoring left side NEUR: Bilateral lower extremity coordination and muscle stretch reflexes are physiologic and symmetric. Negative clonus bilaterally. No loss of sensation is noted. . Assessment and Plan Plan: Assessment and plan= lumbar spondylosis with lumbar facet arthropathy, lumbar foraminal stenosis Left knee arthralgia Patient underwent repeat RFA of the medial branch lumbar area at L3, L4, L5 and reports good ongoing pain relief. In the future, we could consider performing diagnostic medial branch blocks at the L2-3 and L34 facets as she has some residual pain above level of RFA Regarding her knee pain, I provided her with a referral to orthopedic surgery, and a prescription for a right knee brace. I offered her a steroid injection to the right knee, she declined. She would prefer to be evaluated by a surgeon first. Patient will continue to use her pain medication as prescribed by her primary care PQRS Measure Charge Sheet Measure #130: Documentation of Current Meds in Medical Chart: Patient's medications documented in chart Measure #226: Tobacco Use: Screen & Cessation Intervention: Pt screen for tobacco use and intervention given Measure #111: Pneumonia Vaccination: Pneumococcal vaccine NOT administered or previously given Measure #47: Advance Care Plan: Advance care planning discussed & documented, pt chose/unable to give Measure #412: Opioid Treatment Agreement: No documentation of signed opioid treatment agreement Measure #408: Opioid Therapy Follow-up Evaluation: Patient had NO f/u eval minimum every 3 months during opioid therapy Measure #317: Preventitive Care & Scrn High Bld Press & F/U: Patient hypertensive or prehypertensive, follow-up with primary care physician Measure #128: Body Mass Index (BMI) Screening & Follow-up: BMI documented ABOVE normal parameters - f/u documented Measure #131: Pain Assessment & Follow-up: Pain positive & plan documented, Follow-up scheduled Measure #431: Unhealthy Alcohol Use Preventative Care & Scrn: Patient not identified as an unhealthy alcohol user PQRS Measure Charge Sheet PQRS Narrative: Smoking Status Former smoker Pain Intensity [Lower Back] 4 Scale Used Numeric (1 - 10) Hx Alcohol Use (MH) No Home Medications: Ambulatory Orders Lisinopril [Prinivil] 10 mg PO DAILY 03/04/16 Pravastatin Sodium [Pravachol] 40 mg PO DAILY 10/15/16 Vortioxetine Hydrobromide [Trintellix] 20 mg PO DAILY 10/15/16 Albuterol Inhaler (Mhu) [Ventolin Hfa Inhaler (Mhu)] 2 puff INHALATION RT-BID PRN 05/05/17 oxyCODONE-APAP 10-325MG [Percocet 10-325 mg] 1 tab PO TID 01/30/18 Gabapentin [Neurontin] 400 mg PO TID 08/03/18 Melatonin 10 mg PO HS 06/09/19 Rizatriptan Benzoate [Maxalt] 10 mg PO Q12H PRN 06/09/19 busPIRone HCL [Buspar] 30 mg PO BID 06/09/19 hydrOXYzine pamoate [Vistaril] 50 mg PO BID PRN 06/09/19 Cholecalciferol [Vitamin D3 (25 Mcg = 1000 Iu)] 1,000 unit PO DAILY 06/11/19 Docusate [Colace] 100 mg PO BID 06/11/19 EPINEPHrine (Auto Inject) [Epipen] 0.3 mg IM ONCE PRN 06/11/19 Fluticasone/Salmeterol [Airduo Respiclick 113-14 Mcg] 1 puff INHALATION RT-BID 06/11/19 Ondansetron [Zofran] 4 mg PO Q4H PRN 06/11/19 Propranolol [Inderal] 40 mg PO DAILY 06/11/19 Acetaminophen Tab [Tylenol] 650 mg PO Q4HR PRN tab 06/16/19 Cariprazine HCl [Vraylar] 3 mg PO DAILY 30 Days capsule 06/16/19 lamoTRIgine [LaMICtal] 100 mg PO BID 08/27/19 Cyclobenzaprine [Flexeril] 10 mg PO TID 10/22/19 Topiramate [Trokendi Xr] 100 mg PO BID 10/22/19 Controlled Substance Measures - Controlled Substance Measures Is patient prescribed a controlled substance at discharge?: No
== END | disposition home or self-care (01) ==
CPT/HCPCS: 99211

== ENCOUNTER → 2019-11-18 | Outpatient (CLI) | payer OTHER ==
--- NOTE | 2019-11-18 18:21 | XR ---
EXAMINATION TYPE: XR knee complete RT DATE OF EXAM: 11/18/2019 COMPARISON: NONE HISTORY: 39-year-old female with right knee pain TECHNIQUE: 3 views FINDINGS: Mild marginal spurring in the patellofemoral compartment. Extensor mechanism appears intact. Trace kn ee joint fluid may be physiologic. No acute fracture, subluxation, or dislocation seen. IMPRESSION: Mild marginal spurring in the patellofemoral compartment could reflect early degenerative change. No acute osseous abnormality seen.
== END | disposition home or self-care (01) ==
LOC: RADXRMAIN 12:20
PROVIDERS: ATTEND Internal Medicine
DX: M76.891 Other specified enthesopathies of right lower limb, excluding foot (principal)

== ENCOUNTER 2020-02-16 00:51 | Emergency (ER) | payer OTHER ==
[2020-02-16 00:58] VITALS: BP 136/92; PULSE 101; RESP 20; TEMP 98.1
--- NOTE | 2020-02-16 01:41 | ED ---
General Adult HPI - General Chief complaint: Skin/Abscess/Foreign Body Stated complaint: Possible spider bite Time Seen by Provider: 02/16/20 01:01 Source: patient, RN notes reviewed Mode of arrival: ambulatory Limitations: no limitations - History of Present Illness Initial comments: 39-year-old female presents to the emergency department for a chief complaint of bruise to the right inner thigh. Patient states it started as a small dot yesterday that looked like a bug bite or a pimple. Patient states that since that time it has become a large bruise. Patient denies bruising elsewhere. Denies any bleeding. Patient denies any constitutional symptoms. Denies fevers.Patient has no other complaints at this time including shortness of breath, chest pain, abdominal pain, nausea or vomiting, headache, or visual changes. - Related Data Home Medications Medication Instructions Recorded Confirmed Lisinopril [Prinivil] 10 mg PO DAILY 03/04/16 10/22/19 Pravastatin Sodium [Pravachol] 40 mg PO DAILY 10/15/16 10/22/19 Vortioxetine Hydrobromide 20 mg PO DAILY 10/15/16 10/22/19 [Trintellix] Albuterol Inhaler (Mhu) [Ventolin 2 puff INHALATION RT-BID PRN 05/05/17 10/22/19 Hfa Inhaler (Mhu)] oxyCODONE-APAP 10-325MG [Percocet 1 tab PO TID 01/30/18 10/22/19 10-325 mg] Gabapentin [Neurontin] 400 mg PO TID 08/03/18 10/22/19 Melatonin 10 mg PO HS 06/09/19 10/22/19 Rizatriptan Benzoate [Maxalt] 10 mg PO Q12H PRN 06/09/19 10/22/19 busPIRone HCL [Buspar] 30 mg PO BID 06/09/19 10/22/19 hydrOXYzine pamoate [Vistaril] 50 mg PO BID PRN 06/09/19 10/22/19 Cholecalciferol [Vitamin D3 (25 1,000 unit PO DAILY 06/11/19 10/22/19 Mcg = 1000 Iu)] Docusate [Colace] 100 mg PO BID 06/11/19 10/22/19 EPINEPHrine (Auto Inject) [Epipen] 0.3 mg IM ONCE PRN 06/11/19 10/22/19 Fluticasone/Salmeterol [Airduo 1 puff INHALATION RT-BID 06/11/19 10/22/19 Respiclick 113-14 Mcg] Ondansetron [Zofran] 4 mg PO Q4H PRN 06/11/19 10/22/19 Propranolol [Inderal] 40 mg PO DAILY 06/11/19 10/22/19 lamoTRIgine [LaMICtal] 100 mg PO BID 08/27/19 10/22/19 Cyclobenzaprine [Flexeril] 10 mg PO TID 10/22/19 10/22/19 Topiramate [Trokendi Xr] 100 mg PO BID 10/22/19 10/22/19 Previous Rx's Medication Instructions Recorded Acetaminophen Tab [Tylenol] 650 mg PO Q4HR PRN tab 06/16/19 Cariprazine HCl [Vraylar] 3 mg PO DAILY 30 Days capsule 06/16/19 Allergies Allergy/AdvReac Type Severity Reaction Status Date / Time bee venom protein (honey bee) Allergy Rash/Hives Verified 02/16/20 00:58 omeprazole Allergy Rash/Hives Verified 02/16/20 00:58 Review of Systems ROS Statement: Those systems with pertinent positive or pertinent negative responses have been documented in the HPI. ROS Other: All systems not noted in ROS Statement are negative. Past Medical History Past Medical History: COPD, GERD/Reflux, Hyperlipidemia, Hypertension, Musculoskeletal Disorder, Sleep Apnea/CPAP/BIPAP Additional Past Medical History / Comment(s): hx migraines, ,has Nexplanon Implant, uses CPAP History of Any Multi-Drug Resistant Organisms: None Reported Additional Past Surgical History / Comment(s): sinus surgery, eye, pain procedures Past Anesthesia/Blood Transfusion Reactions: Motion Sickness Past Psychological History: Anxiety, Bipolar, Depression Smoking Status: Current every day smoker Past Alcohol Use History: None Reported Past Drug Use History: Marijuana - Past Family History Mother Family Medical History: Cancer Additional Family Medical History / Comment(s): lymphoma Father Family Medical History: Hypertension General Exam Limitations: no limitations General appearance: alert, in no apparent distress Head exam: Present: atraumatic, normocephalic, normal inspection Eye exam: Present: normal appearance, PERRL, EOMI. Absent: scleral icterus, conjunctival injection ENT exam: Present: normal exam, mucous membranes moist Neck exam: Present: normal inspection, full ROM. Absent: tenderness, meningismus, lymphadenopathy Respiratory exam: Present: normal lung sounds bilaterally. Absent: respiratory distress, wheezes, rales, rhonchi, stridor Cardiovascular Exam: Present: regular rate, normal rhythm, normal heart sounds. Absent: systolic murmur, diastolic murmur, rubs, gallop, clicks GI/Abdominal exam: Present: soft, normal bowel sounds. Absent: distended, tenderness, guarding, rebound, rigid Extremities exam: Present: other (Patient has a hematoma noted to the right inner thigh measuring about 8 cm x 8 cm. There is some minimal central clearing. There is no fluctuance or induration consistent with abscess.) Course Vital Signs 02/16/20 00:56 Temperature 98.1 F Pulse Rate 101 H Respiratory 20 Rate Blood Pressure 136/92 O2 Sat by Pulse 100 Oximetry Medical Decision Making - Medical Decision Making Patient will be tested for Lyme disease however this is unlikely given take was not seen. Patient's bruises in a place where he would be expected to be visualized. Patient will be discharged home to follow up with primary care pending results. She will return here for any worsening symptoms. Disposition Clinical Impression: Ecchymosis Disposition: HOME SELF-CARE Condition: Good Instructions (If sedation given, give patient instructions): Contusion in Adults (ED) Additional Instructions: Please follow up on results of Lyme disease. Please follow-up with your doctor in one to 2 days. Return to the emergency room for any worsening symptoms. Is patient prescribed a controlled substance at d/c from ED?: No Referrals: Tiarra Jimenez MD [Primary Care Provider] - 1-2 days Time of Disposition: 01:40
== END 2020-02-16 02:02 | disposition home or self-care (01) ==
LOC: EC 00:51
DX: S70.11XA Contusion of right thigh, initial encounter (principal); I10 Essential (primary) hypertension; J44.9 Chronic obstructive pulmonary disease, unspecified; E78.5 Hyperlipidemia, unspecified; G47.30 Sleep apnea, unspecified; G43.909 Migraine, unspecified, not intractable, without status migrainosus; F32.9 Major depressive disorder, single episode, unspecified; F41.9 Anxiety disorder, unspecified; F17.200 Nicotine dependence, unspecified, uncomplicated; Z79.899 Other long term (current) drug therapy; Z79.891 Long term (current) use of opiate analgesic; Z79.890 Hormone replacement therapy; Z79.51 Long term (current) use of inhaled steroids; Z88.8 Allergy status to other drugs, medicaments and biological substances; Z91.030 Bee allergy status; Z99.89 Dependence on other enabling machines and devices; X58.XXXA Exposure to other specified factors, initial encounter
CPT/HCPCS: 36415; 86618; 99283

== ENCOUNTER → 2020-08-21 | Outpatient (CLI) | payer OTHER ==
[2020-08-21 09:13] VITALS: BP 135/91; PULSE 97; RESP 18; TEMP 98.8
--- NOTE | 2020-08-21 09:55 | P.PAINPG ---
Subjective Progress Note Date: 08/21/20 This is follow up visits for this 40 years old female with a chronic history of severe low back pain, she is diagnosed with lumbar degenerative disc disease and lumbar spondylosis with lumbar facet arthropathy, previously we have done RFA of the medial branch lumbar area, and she gets excellent pain relief, and she is currently complaining of severe low back pain, it's constant increases with any activity, also patient complained of severe tenderness over the lumbar lumbar area, radiation to the buttock bilaterally, he denies any motor or sensory deficit she denies any fever or night sweats, and no change in the bowel movement or urination Objective - Vital Signs Vital signs: Vital Signs Temp 98.8 F 08/21/20 09:08 Pulse 97 08/21/20 09:08 Resp 18 08/21/20 09:08 BP 135/91 08/21/20 09:08 Pulse Ox 95 08/21/20 09:08 - Exam Physical Examinations : -Constitutiona : Cooperative , not in acute distress . -HEENT : nech : supple , no Lymphadenopathy , normal thyroid size . : eyes : no ptosis , no icterus, no photophobia . - neurologic : Cranial nerve II to XII intact , no focal neurological deffecit . -psychatric : alert , oriented X 3 , appropriate affect , intact judgment and insight . -Lymphatic : no Lymphadenopathy . - musculoskeltal : Lumber spine moter stegnth lower extremities ,thigh and legs 5/5 Right side , 5/5 Left side deep tendon reflexes : normal Knee Jerk , normal ankle Jerk lumber facet Loading Test =positive Right , positive Left Range of motion of the lumbar spine Flexion 30 degrees, extension 10 degrees strait leg raising test = positive at 30 degree Fabere test= positive Right , and positive LT . Sever tenderness over the Sacroiliac joint on the Right , and Left sides Gaenslen test= positive right ,and positive left . Seated flexion test= positive right ,and positive Left . Distraction test= positive bilaterally Severe tenderness over the lateral aspect of the lumbar spine bilaterally, localized mass 2-3 cm diameter. Lilia the lumbar spine= reviewed Assessment and Plan Plan: Assessment and plan=1-lumbar degenerative disc disease. 2-lumbar spondylosis with lumbar facet arthropathy without myelopathy. 3-sacroiliitis. 4-painful, enlarged, lymph node versus cyst in the lumbar area bilaterally Shoulder be referred for surgical evaluation regarding the lymph node versus painful cyst She could benefit from repeat RFA of the medial branch lumbar area (last RFA done year ago ). she will follow up In the pain clinic within a few weeks after she see surgeon, and possibly will scheduled for RFA of the medial branch lumbar area Time with Patient: Less than 30 PQRS Measure Charge Sheet Measure #130: Documentation of Current Meds in Medical Chart: Patient's medications documented in chart Measure #226: Tobacco Use: Screen & Cessation Intervention: Pt screened for tobacco use AND intervention given Measure #111: Pneumonia Vaccination: Pneumococcal vaccine NOT administered or previously given Measure #47: Advance Care Plan: Advance care planning discussed & documented, pt chose/unable to give Measure #412: Opioid Treatment Agreement: No documentation of signed opioid treatment agreement Measure #408: Opioid Therapy Follow-up Evaluation: Patient had NO f/u eval minimum every 3 months during opioid therapy Measure #317: Preventitive Care & Scrn High Bld Press & F/U: Normal blood pressure, f/u not required Measure #128: Body Mass Index (BMI) Screening & Follow-up: BMI documented ABOVE normal parameters - f/u documented Measure #131: Pain Assessment & Follow-up: Pain positive & plan documented, Follow-up scheduled Measure #431: Unhealthy Alcohol Use Preventative Care & Scrn: Patient not identified as an unhealthy alcohol user PQRS Narrative: Smoking Status Former smoker Blood Pressure 135/91 Pain Intensity [Lower Back] 6 Scale Used Numeric (1 - 10) Hx Alcohol Use (MH) No Home Medications: Ambulatory Orders Lisinopril [Prinivil] 10 mg PO DAILY 03/04/16 Vortioxetine Hydrobromide [Trintellix] 20 mg PO DAILY 10/15/16 oxyCODONE-APAP 10-325MG [Percocet 10-325 mg] 1 tab PO TID 01/30/18 Gabapentin [Neurontin] 400 mg PO BID 08/03/18 Melatonin 10 mg PO HS 06/09/19 busPIRone HCL [Buspar] 30 mg PO BID 06/09/19 Cholecalciferol [Vitamin D3 (25 Mcg = 1000 Iu)] 1,000 unit PO DAILY 06/11/19 Docusate [Colace] 100 mg PO BID 06/11/19 EPINEPHrine (Auto Inject) [Epipen] 0.3 mg IM ONCE PRN 06/11/19 Ondansetron [Zofran] 4 mg PO Q4H PRN 06/11/19 Propranolol [Inderal] 40 mg PO DAILY 06/11/19 Cariprazine HCl [Vraylar] 3 mg PO DAILY 30 Days capsule 06/16/19 lamoTRIgine [LaMICtal] 150 mg PO BID 08/27/19 Cyclobenzaprine [Flexeril] 10 mg PO TID 10/22/19 Albuterol Sulfate [Proair Hfa] 1 - 2 puff INHALATION Q6HR PRN 08/15/20 Rosuvastatin Calcium [Crestor] 30 mg PO DAILY 08/15/20 Topiramate [Trokendi Xr] 200 mg PO BID 08/15/20 Controlled Substance Measures - Controlled Substance Measures Is patient prescribed a controlled substance at discharge?: No
== END ==
LOC: PNWHC3 08:51
PROVIDERS: ATTEND Specialist
DX: M47.816 Spondylosis without myelopathy or radiculopathy, lumbar region (principal); M51.36 Other intervertebral disc degeneration, lumbar region; M46.1 Sacroiliitis, not elsewhere classified; I10 Essential (primary) hypertension; F31.9 Bipolar disorder, unspecified; F41.9 Anxiety disorder, unspecified; F90.9 Attention-deficit hyperactivity disorder, unspecified type; Z79.899 Other long term (current) drug therapy; Z91.030 Bee allergy status; Z88.8 Allergy status to other drugs, medicaments and biological substances
CPT/HCPCS: 99211

== ENCOUNTER → 2020-09-12 | Outpatient (CLI) | payer OTHER | END | disposition home or self-care (01) | LOC: LABWHC1 13:47 | PROVIDERS: ATTEND Obstetrics & Gynecology | DX: N92.6 Irregular menstruation, unspecified (principal) | CPT/HCPCS: 36415; 84702 ==

== ENCOUNTER 2020-10-25 13:15 | Emergency (ER) | payer OTHER ==
[2020-10-25 13:19] VITALS: RESP 18; TEMP 98.4
[2020-10-25] MEDS ORDERED: SODIUM CHLORIDE 0.9% 1,000 ML IV STA (13:30)
[2020-10-25] MEDS ORDERED: MORPHINE SULFATE 4 MG/ML SYRINGE IV STA (13:30)
[2020-10-25] MEDS ORDERED: KETOROLAC 15 MG/ML 1 ML VIAL IVP STA (13:30)
--- NOTE | 2020-10-25 13:48 | ED ---
General Adult HPI - General Source: patient, RN notes reviewed, old records reviewed Mode of arrival: ambulatory Limitations: no limitations <Dago Hernandez - Last Filed: 10/25/20 13:47> <Torie Mirza - Last Filed: 10/26/20 01:09> - General Chief complaint: Abdominal Pain Stated complaint: Lower Back Pain Time Seen by Provider: 10/25/20 13:27 - History of Present Illness Initial comments: 40-year-old female presented for evaluation of right flank pain. Patient did note that the pain was increased with urination over the past several days. She's had no abdominal pain. No vomiting. No fever. No previous history of renal colic. Patient states the pain is constant. She has not noted any hematuria. No dysuria. No reported injury. (Dago Hernandez) - Related Data Home Medications Medication Instructions Recorded Confirmed Lisinopril [Prinivil] 10 mg PO DAILY 03/04/16 10/25/20 Vortioxetine Hydrobromide 20 mg PO DAILY 10/15/16 10/25/20 [Trintellix] oxyCODONE-APAP 10-325MG [Percocet 1 tab PO TID 01/30/18 10/25/20 10-325 mg] Gabapentin [Neurontin] 400 mg PO TID 08/03/18 10/25/20 busPIRone HCL [Buspar] 30 mg PO BID 06/09/19 10/25/20 Cholecalciferol [Vitamin D3 (25 25 mcg PO DAILY 06/11/19 10/25/20 Mcg = 1000 Iu)] Docusate [Colace] 100 mg PO BID 06/11/19 10/25/20 EPINEPHrine (Auto Inject) [Epipen] 0.3 mg IM ONCE PRN 06/11/19 10/25/20 Propranolol [Inderal] 40 mg PO DAILY 06/11/19 10/25/20 Cyclobenzaprine [Flexeril] 10 mg PO TID PRN 10/22/19 10/25/20 Albuterol Sulfate [Proair Hfa] 2 puff INHALATION RT-Q4H PRN 08/15/20 10/25/20 Topiramate [Trokendi Xr] 200 mg PO DAILY 08/15/20 10/25/20 Budesonide/Formoterol Fumarate 2 puff INHALATION RT-BID 10/25/20 10/25/20 [Symbicort 160-4.5 Mcg Inhaler] Cariprazine HCl [Vraylar] 3 mg PO HS 10/25/20 10/25/20 Dextroamphetamine/Amphetamine 30 mg PO BID 10/25/20 10/25/20 [Adderall] Rizatriptan Odt [Maxalt EXPRESSIVE THERAPIST] 5 mg PO DAILY PRN 10/25/20 10/25/20 Rosuvastatin [Crestor] 20 mg PO DAILY 10/25/20 10/25/20 lamoTRIgine [LaMICtal] 150 mg PO BID 10/25/20 10/25/20 Previous Rx's Medication Instructions Recorded Cephalexin [Keflex] 500 mg PO Q6HR 1 Days #28 cap 10/25/20 Allergies Allergy/AdvReac Type Severity Reaction Status Date / Time bee venom protein (honey bee) Allergy Anaphylaxis Verified 10/25/20 16:20 omeprazole Allergy Rash/Hives Verified 10/25/20 16:20 Review of Systems ROS Other: All systems not noted in ROS Statement are negative. <Dago Hernandez - Last Filed: 10/25/20 13:47> ROS Other: All systems not noted in ROS Statement are negative. <Torie Mirza - Last Filed: 10/26/20 01:09> ROS Statement: Those systems with pertinent positive or pertinent negative responses have been documented in the HPI. Past Medical History Past Medical History: COPD, GERD/Reflux, Hyperlipidemia, Hypertension, Osteoarthritis (OA), Sleep Apnea/CPAP/BIPAP Additional Past Medical History / Comment(s): Hx migraines, has Nexplanon Implant, uses CPAP. History of Any Multi-Drug Resistant Organisms: None Reported Additional Past Surgical History / Comment(s): Sinus surgery, eye surgey, Pain Procedures. Past Anesthesia/Blood Transfusion Reactions: No Reported Reaction, Motion Sickness Past Psychological History: Anxiety, Bipolar, Depression Smoking Status: Current every day smoker Past Alcohol Use History: None Reported Past Drug Use History: Marijuana - Past Family History Mother Family Medical History: Cancer Additional Family Medical History / Comment(s): Lymphoma. Father Family Medical History: Hypertension <Dago Hernandez - Last Filed: 10/25/20 13:47> General Exam Limitations: no limitations General appearance: alert, in no apparent distress Head exam: Present: atraumatic, normocephalic Eye exam: Present: normal appearance, PERRL ENT exam: Present: normal exam Neck exam: Present: normal inspection. Absent: tenderness, meningismus Respiratory exam: Present: normal lung sounds bilaterally. Absent: respiratory distress, wheezes Cardiovascular Exam: Present: regular rate, normal rhythm GI/Abdominal exam: Present: soft. Absent: distended, tenderness, guarding, rebound Extremities exam: Present: normal inspection, normal capillary refill. Absent: pedal edema Back exam: Present: CVA tenderness (R) Neurological exam: Present: alert, oriented X3, CN II-XII intact. Absent: motor sensory deficit Psychiatric exam: Present: normal affect, normal mood Skin exam: Present: warm, dry, intact. Absent: cyanosis, diaphoretic <Dago Hernandez - Last Filed: 10/25/20 13:47> Course Vital Signs 10/25/20 10/25/20 10/25/20 13:16 13:59 14:52 Temperature 98.4 F Pulse Rate 99 79 81 Respiratory 18 18 18 Rate Blood Pressure 143/102 129/93 118/75 O2 Sat by Pulse 98 99 100 Oximetry 10/25/20 10/25/20 10/25/20 15:00 16:31 17:24 Temperature 98.4 F Pulse Rate 80 79 69 Respiratory 18 18 18 Rate Blood Pressure 126/90 122/88 135/86 O2 Sat by Pulse 99 99 100 Oximetry Medical Decision Making - Lab Data Result diagrams: 10/25/20 13:50 10/25/20 13:50 <Torie Mirza - Last Filed: 10/26/20 01:09> - Medical Decision Making Patient was signed out for me from Dr. Hernandez. I did review the patient's labs and imaging. Urinalysis is positive for rare bacteria. CT imaging does demonstrate signs of possible enteritis. Findings suggestive of medullary sponge kidney. This is discussed with the patient. She is given a dose of Sinan ephin. Patient will be placed on Keflex in the outpatient setting. She is given urology follow-up and informed she may require further imaging for evaluation of her possible medullary sponge kidney. She is also to follow-up with her primary care doctor in 2-4 days. Return to the emergency room for any new or worsening symptoms. Patient was discharged home in stable condition (Troie Mirza) - Lab Data Lab Results 10/25/20 10/25/20 10/25/20 Range/Units 13:50 13:50 13:50 WBC 12.4 H (3.8-10.6) k/uL RBC 4.59 (3.80-5.40) m/uL Hgb 13.4 (11.4-16.0) gm/dL Hct 41.5 (34.0-46.0) % MCV 90.4 (80.0-100.0) fL MCH 29.3 (25.0-35.0) pg MCHC 32.4 (31.0-37.0) g/dL RDW 12.7 (11.5-15.5) % Plt Count 292 (150-450) k/uL MPV 8.0 Neutrophils % 72 % Lymphocytes % 20 % Monocytes % 5 % Eosinophils % 1 % Basophils % 0 % Neutrophils # 8.9 H (1.3-7.7) k/uL Lymphocytes # 2.5 (1.0-4.8) k/uL Monocytes # 0.7 (0-1.0) k/uL Eosinophils # 0.2 (0-0.7) k/uL Basophils # 0.0 (0-0.2) k/uL PT 10.0 (9.0-12.0) sec INR 0.9 (<1.2) APTT 26.4 (22.0-30.0) sec Sodium (137-145) mmol/L Potassium (3.5-5.1) mmol/L Chloride (98-107) mmol/L Carbon Dioxide (22-30) mmol/L Anion Gap mmol/L BUN (7-17) mg/dL Creatinine (0.52-1.04) mg/dL Est GFR (CKD-EPI)AfAm (>60 ml/min/1.73 sqM) Est GFR (CKD-EPI)NonAf (>60 ml/min/1.73 sqM) Glucose (74-99) mg/dL Plasma Lactic Acid [place] (0.7-2.0) mmol/L Calcium (8.4-10.2) mg/dL Total Bilirubin (0.2-1.3) mg/dL AST (14-36) U/L ALT (4-34) U/L Alkaline Phosphatase (38-126) U/L Total Protein (6.3-8.2) g/dL Albumin (3.5-5.0) g/dL Amylase (30-110) U/L Lipase (23-300) U/L Urine Color Yellow Urine Appearance Clear (Clear) Urine pH 6.5 (5.0-8.0) Ur Specific Eaton 1.019 (1.001-1.035) Urine Protein Negative (Negative) Urine Glucose (UA) Negative (Negative) Urine Ketones Negative (Negative) Urine Blood Negative (Negative) Urine Nitrite Negative (Negative) Urine Bilirubin Negative (Negative) Urine Urobilinogen <2.0 (<2.0) mg/dL Ur Leukocyte Esterase Trace H (Negative) Urine RBC 2 (0-5) /hpf Urine WBC 1 (0-5) /hpf Ur Squamous Epith Cells 2 (0-4) /hpf Urine Bacteria Rare H (None) /hpf Urine Mucus Rare H (None) /hpf Urine HCG, Qual (Not Detectd) 10/25/20 10/25/20 10/25/20 Range/Units 13:50 13:50 13:50 WBC (3.8-10.6) k/uL RBC (3.80-5.40) m/uL Hgb (11.4-16.0) gm/dL Hct (34.0-46.0) % MCV (80.0-100.0) fL MCH (25.0-35.0) pg MCHC (31.0-37.0) g/dL RDW (11.5-15.5) % Plt Count (150-450) k/uL MPV Neutrophils % % Lymphocytes % % Monocytes % % Eosinophils % % Basophils % % Neutrophils # (1.3-7.7) k/uL Lymphocytes # (1.0-4.8) k/uL Monocytes # (0-1.0) k/uL Eosinophils # (0-0.7) k/uL Basophils # (0-0.2) k/uL PT (9.0-12.0) sec INR (<1.2) APTT (22.0-30.0) sec Sodium 140 (137-145) mmol/L Potassium 4.4 (3.5-5.1) mmol/L Chloride 107 (98-107) mmol/L Carbon Dioxide 22 (22-30) mmol/L Anion Gap 11 mmol/L BUN 9 (7-17) mg/dL Creatinine 0.54 (0.52-1.04) mg/dL Est GFR (CKD-EPI)AfAm >90 (>60 ml/min/1.73 sqM) Est GFR (CKD-EPI)NonAf >90 (>60 ml/min/1.73 sqM) Glucose 112 H (74-99) mg/dL Plasma Lactic Acid [place] 1.0 (0.7-2.0) mmol/L Calcium 9.3 (8.4-10.2) mg/dL Total Bilirubin 0.3 (0.2-1.3) mg/dL AST 30 (14-36) U/L ALT 20 (4-34) U/L Alkaline Phosphatase 62 (38-126) U/L Total Protein 7.4 (6.3-8.2) g/dL Albumin 4.6 (3.5-5.0) g/dL Amylase 41 (30-110) U/L Lipase 27 (23-300) U/L Urine Color Urine Appearance (Clear) Urine pH (5.0-8.0) Ur Specific Eaton (1.001-1.035) Urine Protein (Negative) Urine Glucose (UA) (Negative) Urine Ketones (Negative) Urine Blood (Negative) Urine Nitrite (Negative) Urine Bilirubin (Negative) Urine Urobilinogen (<2.0) mg/dL Ur Leukocyte Esterase (Negative) Urine RBC (0-5) /hpf Urine WBC (0-5) /hpf Ur Squamous Epith Cells (0-4) /hpf Urine Bacteria (None) /hpf Urine Mucus (None) /hpf Urine HCG, Qual Not Detected (Not Detectd) Disposition <Dago Hernandez - Last Filed: 10/25/20 13:47> Is patient prescribed a controlled substance at d/c from ED?: No Time of Disposition: 17:17 <Torie Mirza - Last Filed: 10/26/20 01:09> Clinical Impression: Right flank pain, Bacteria in urine Disposition: HOME SELF-CARE Condition: Stable Instructions (If sedation given, give patient instructions): Urinary Tract Infection in Women (ED) Additional Instructions: Please follow up with your primary care doctor in 2-4 days. Follow-up with the urologist for your possible diagnosis of medullary sponge kidney. Return to the emergency room for any new or worsening symptoms Prescriptions: Cephalexin [Keflex] 500 mg PO Q6HR 1 Days #28 cap Referrals: Tiarra Jimenez MD [Primary Care Provider] - 1-2 days Shahram Alfaro MD [STAFF PHYSICIAN] - 1-2 days
[2020-10-25 14:41] LABS: Basophils % (A) 0 %; Eosinophils # (A) 0.2 k/uL (0-0.7); Eosinophils % (A) 1 %; HCT 41.5 % (34.0-46.0); HGB 13.4 gm/dL (11.4-16.0); Lymphocytes # (A) 2.5 k/uL (1.0-4.8); Lymphocytes % (A) 20 %; MCH 29.3 pg (25.0-35.0); MCHC 32.4 g/dL (31.0-37.0); MCV 90.4 fL (80.0-100.0); Monocytes # (A) 0.7 k/uL (0-1.0); Monocytes % (A) 5 %; Neutrophils # (A) 8.9 k/uL (1.3-7.7); Neutrophils % (A) 72 %; Platelet Count 292 k/uL (150-450); RBC 4.59 m/uL (3.80-5.40); RDW 12.7 % (11.5-15.5); WBC 12.4 k/uL (3.8-10.6)
[2020-10-25 14:43] LABS: Appearance,Urine Clear (Clear); Bacteria,Urine Rare /hpf; Bilirubin,Urine Negative (Negative); Blood,Urine Negative (Negative); Color,Urine Yellow; Glucose,Urine (UA) Negative (Negative); Ketones,Urine Negative (Negative); Leukocyte Esterase,Urine Trace (Negative); Mucus,Urine Rare /hpf; Nitrite,Urine Negative (Negative); PH, Urine 6.5 (5.0-8.0); Protein,Urine Negative (Negative); RBC,Urine 2 /hpf (0-5); Specific Gravity,Urine 1.019 (1.001-1.035); Squamous Epithelial Cell,Urine 2 /hpf (0-4); Urobilinogen,Urine <2.0 mg/dL (<2.0); WBC,Urine 1 /hpf (0-5)
[2020-10-25 14:49] LABS: INR 0.9 (<1.2); Partial Thromboplastin Time 26.4 sec (22.0-30.0)
[2020-10-25 14:50] LABS: ALT 20 U/L (4-34); AST 30 U/L (14-36); African American GFR (CKD) >90 (>60 ml/min/1.73 sqM); Albumin 4.6 g/dL (3.5-5.0); Alkaline Phosphatase 62 U/L (38-126); Amylase 41 U/L (30-110); Anion Gap 11 mmol/L; Blood Urea Nitrogen 9 mg/dL (7-17); Calcium 9.3 mg/dL (8.4-10.2); Carbon Dioxide 22 mmol/L (22-30); Chloride 107 mmol/L (98-107); Glucose 112 mg/dL (74-99); Lipase 27 U/L (23-300); Non-African American GFR(CKD) >90 (>60 ml/min/1.73 sqM); Potassium 4.4 mmol/L (3.5-5.1); Sodium 140 mmol/L (137-145); Total Bilirubin 0.3 mg/dL (0.2-1.3); Total Protein 7.4 g/dL (6.3-8.2)
--- NOTE | 2020-10-25 16:34 | XR ---
EXAMINATION TYPE: XR KUB DATE OF EXAM: 10/25/2020 COMPARISON: NONE HISTORY: Pain TECHNIQUE: Single supine KUB image of the abdomen is obtained FINDINGS: Small bowel demonstrates no evidence for dilatation or air fluid levels. Gas and fecal material is seen in non-distended colon. No convincing evidence for pneumoperitoneum. No unusual calcifications. The lung bases are clear. The osseous structures are intact. IMPRESSION: 1. Overall nonobstructive bowel gas pattern.
--- NOTE | 2020-10-25 16:37 | CT ---
EXAMINATION TYPE: CT abdomen pelvis wo con DATE OF EXAM: 10/25/2020 COMPARISON: HISTORY: right flank pain CT DLP: 1037.4 mGycm Automated exposure control for dose reduction was used. TECHNIQUE: Helical acquisition of images from the lung bases through the pelvis. FINDINGS: Lack imaging venous contrast could compromise sensitivity. LUNG BASES: Some posterior atelectatic changes are present, suspect there is a posterior diaphragmati c hernia containing fat on the left. AORTA: No significant abnormality is appreciataed. LIVER/GB: No significant abnormality is appreciated. PANCREAS: No significant abnormality is seen. SPLEEN: No significant abnormality is seen. ADRENALS: No significant abnormality is seen. KIDNEYS: There are changes of probable medullary sponge kidney, no evident ureteral calcification, no hydronephrosis or renal mass evident. Distal ureters are obscured however REPRODUCTIVE ORGANS: No significant abnormality is seen. URINARY BLADDER: No significant abnormality is seen. BOWEL: Question small bowel wall thickening with some fluid-filled loops of small bowel. No evident appendicitis. FREE AIR: No Free Air is visible. ASCITES: None visible. PELVIC ADENOPATHY: None visualized. RETROPERITONEAL ADENOPATHY: No Retroperitoneal Adenopathy visible. OSSEOUS STRUCTURES: Degenerative disc changes are noted in the lumbar spine, there is some associate d facet arthropathy. IMPRESSION: NONCONTRAST EXAM. CORRELATE FOR POSSIBLE ENTERITIS. FINDINGS SUGGEST MEDULLARY SPONGE KIDNEY, NO EVID ENT HYDRONEPHROSIS OR OBSTRUCTIVE URETERAL CALCULUS
[2020-10-25] MEDS ORDERED: cefTRIAXone IN SWFI 1,000 MG/10 ML SYRINGE IVP STA (17:15)
[2020-10-25 17:26] VITALS: BP 135/86; PULSE 69
== END 2020-10-25 17:25 | disposition home or self-care (01) ==
LOC: EC 13:15
DX: R82.71 Bacteriuria (principal); J44.9 Chronic obstructive pulmonary disease, unspecified; I10 Essential (primary) hypertension; E78.5 Hyperlipidemia, unspecified; G43.909 Migraine, unspecified, not intractable, without status migrainosus; M19.90 Unspecified osteoarthritis, unspecified site; F17.200 Nicotine dependence, unspecified, uncomplicated; Z91.030 Bee allergy status; Z88.8 Allergy status to other drugs, medicaments and biological substances; Z79.899 Other long term (current) drug therapy; Z79.51 Long term (current) use of inhaled steroids; Z79.891 Long term (current) use of opiate analgesic
CPT/HCPCS: 99284; 96374; 96375; 96361; 36415; 80053; 82150; 83605; 83690; 85025; 85610; 85730; 81001; 81025; 74018; 74176; J2270; J0696; J1885

== ENCOUNTER → 2021-03-27 | Outpatient (CLI) | payer OTHER ==
--- NOTE | 2021-03-27 15:51 | US ---
EXAMINATION TYPE: US kidneys/renal and bladder DATE OF EXAM: 03/27/2021 COMPARISON: CT A&P 10/25/20 CLINICAL HISTORY: Q61.5 Medulary sponge kidney. EXAM MEASUREMENTS: Right Kidney: 11.0 x 4.8 x 5.1 cm Left Kidney: 11.2 x 4.4 x 5.2 cm Right Kidney: No hydronephrosis or masses seen Left Kidney: No hydronephrosis or masses seen Bladder: wnl Bilateral Jets seen: Yes There is no evidence for hydronephrosis at this point in time. No nephrolithiasis is seen. No kevon s are identified. Cortical medullary differentiation is maintained bilaterally. The urinary bladder is anechoic. Bilateral ureteral jets are seen. IMPRESSION: Normal renal ultrasound.
== END | disposition home or self-care (01) ==
LOC: RADUSWWP 14:47
PROVIDERS: ATTEND Internal Medicine
DX: Q61.5 Medullary cystic kidney (principal)
CPT/HCPCS: 76770

== ENCOUNTER → 2021-03-27 | Outpatient (CLI) | payer OTHER ==
[2021-03-28 01:11] LABS: T4, Free (Free Thyroxine) 1.08 ng/dL (0.800-1.800)
== END | disposition home or self-care (01) ==
LOC: LABWHC1 14:49
PROVIDERS: ATTEND Psychiatry & Neurology Neurology
DX: G25.0 Essential tremor (principal)
CPT/HCPCS: 36415; 84439; 84443

== ENCOUNTER 2021-08-11 03:43 | Emergency (ER) | payer OTHER ==
[2021-08-11] MEDS ORDERED: IPRATROPIUM-ALBUTEROL 3 ML NEB INHALATION STA (03:46)
--- NOTE | 2021-08-11 03:48 | ED ---
Recheck HPI - General Stated Complaint: JAN Time Seen by Provider: 08/11/21 03:46 Source: RN notes reviewed, old records reviewed Mode of arrival: EMS Limitations: no limitations - History of Present Illness Initial Comments: This is a 41-year-old female recently diagnosed with a double ear infection and bronchitis. Patient is on antibiotics. Patient presents today for worsening shortness of breath. Patient denies history of smoking or any significant possible admissions for shortness of breath. Patient is no travel history no sick contacts no fevers no chest pain. Breath. Patient is planning on her computer here in the emergency department MD Complaint: other (Shortness of breath) -: hour(s) Returns Today for: persistent/worsening pain related to initial visit, other (States increased difficulty breathing from doctor's visit earlier) Symptoms Since Prior Visit: no new symptoms Context: planned re-check Associated Symptoms: chills, shortness of breath, malaise Treatments Prior to Arrival: other medications - Related Data Home Medications Medication Instructions Recorded Confirmed Lisinopril [Prinivil] 10 mg PO DAILY 03/04/16 10/25/20 Vortioxetine Hydrobromide 20 mg PO DAILY 10/15/16 10/25/20 [Trintellix] oxyCODONE-APAP 10-325MG [Percocet 1 tab PO TID 01/30/18 10/25/20 10-325 mg] Gabapentin [Neurontin] 400 mg PO TID 08/03/18 10/25/20 busPIRone HCL [Buspar] 30 mg PO BID 06/09/19 10/25/20 Cholecalciferol [Vitamin D3 (25 25 mcg PO DAILY 06/11/19 10/25/20 Mcg = 1000 Iu)] Docusate [Colace] 100 mg PO BID 06/11/19 10/25/20 EPINEPHrine (Auto Inject) [Epipen] 0.3 mg IM ONCE PRN 06/11/19 10/25/20 Propranolol [Inderal] 40 mg PO DAILY 06/11/19 10/25/20 Cyclobenzaprine [Flexeril] 10 mg PO TID PRN 10/22/19 10/25/20 Albuterol Sulfate [Proair Hfa] 2 puff INHALATION RT-Q4H PRN 08/15/20 10/25/20 Topiramate [Trokendi Xr] 200 mg PO DAILY 08/15/20 10/25/20 Budesonide/Formoterol Fumarate 2 puff INHALATION RT-BID 10/25/20 10/25/20 [Symbicort 160-4.5 Mcg Inhaler] Cariprazine HCl [Vraylar] 3 mg PO HS 10/25/20 10/25/20 Dextroamphetamine/Amphetamine 30 mg PO BID 10/25/20 10/25/20 [Adderall] Rizatriptan Odt [Maxalt ADJUNCT PROFESSOR OF ENGLISH] 5 mg PO DAILY PRN 10/25/20 10/25/20 Rosuvastatin [Crestor] 20 mg PO DAILY 10/25/20 10/25/20 lamoTRIgine [LaMICtal] 150 mg PO BID 10/25/20 10/25/20 Previous Rx's Medication Instructions Recorded Cephalexin [Keflex] 500 mg PO Q6HR 1 Days #28 cap 10/25/20 Ibuprofen [Motrin] 600 mg PO Q8HR PRN #20 tab 07/13/21 Allergies Allergy/AdvReac Type Severity Reaction Status Date / Time bee venom protein (honey bee) Allergy Anaphylaxis Verified 07/13/21 12:03 omeprazole Allergy Rash/Hives Verified 07/13/21 12:03 Review of Systems ROS Statement: Those systems with pertinent positive or pertinent negative responses have been documented in the HPI. ROS Other: All systems not noted in ROS Statement are negative. Past Medical History Past Medical History: COPD, GERD/Reflux, Hyperlipidemia, Hypertension, Osteoarthritis (OA), Sleep Apnea/CPAP/BIPAP Additional Past Medical History / Comment(s): Hx migraines, has Nexplanon Implant, uses CPAP. History of Any Multi-Drug Resistant Organisms: None Reported Additional Past Surgical History / Comment(s): Sinus surgery, eye surgey, Pain Procedures. Past Anesthesia/Blood Transfusion Reactions: No Reported Reaction, Motion Sickness Past Psychological History: Anxiety, Bipolar, Depression Smoking Status: Current every day smoker Past Alcohol Use History: None Reported Past Drug Use History: Marijuana - Past Family History Mother Family Medical History: Cancer Additional Family Medical History / Comment(s): Lymphoma. Father Family Medical History: Hypertension General Exam General appearance: alert, in no apparent distress Head exam: Present: atraumatic, normocephalic, normal inspection Eye exam: Present: normal appearance, PERRL, EOMI. Absent: scleral icterus, conjunctival injection, periorbital swelling ENT exam: Present: normal exam, mucous membranes moist Neck exam: Present: normal inspection. Absent: tenderness, meningismus, lymphadenopathy Respiratory exam: Present: normal lung sounds bilaterally. Absent: respiratory distress, wheezes, rales, rhonchi, stridor Cardiovascular Exam: Present: regular rate, normal rhythm, normal heart sounds. Absent: systolic murmur, diastolic murmur, rubs, gallop, clicks GI/Abdominal exam: Present: soft, normal bowel sounds. Absent: distended, tenderness, guarding, rebound, rigid Extremities exam: Present: normal inspection, full ROM, normal capillary refill. Absent: tenderness, pedal edema, joint swelling, calf tenderness Back exam: Present: normal inspection Neurological exam: Present: alert, oriented X3, CN II-XII intact Psychiatric exam: Present: normal affect, normal mood Skin exam: Present: warm, dry, intact, normal color. Absent: rash Course Vital Signs 08/11/21 08/11/21 08/11/21 03:48 04:06 04:12 Temperature 97.8 F Pulse Rate 105 H 105 H 108 H Respiratory 18 Rate Blood Pressure 135/94 O2 Sat by Pulse 99 Oximetry - Reevaluation(s) Reevaluation #1: 08/11/21 Medical record is reviewed Reevaluation #2: 08/11/21 Patient informed of results and questions answered Reevaluation #3: 08/11/21 Patient has no significant current complaint Medical Decision Making - Medical Decision Making 41 female for shortness of breath recently diagnosed with ear infection place on antibiotics symptoms are improving. At this time patient can be discharged home - Lab Data Lab Results 08/11/21 Range/Units 03:48 Coronavirus (PCR) Not Detected (Not Detectd) - Radiology Data Radiology results: report reviewed (Chest x-rays negative for acute disease), image reviewed Disposition Clinical Impression: Acute upper respiratory infection Disposition: HOME SELF-CARE Condition: Good Instructions (If sedation given, give patient instructions): Upper Respiratory Infection (ED) Is patient prescribed a controlled substance at d/c from ED?: No Referrals: Tiarra Jimenez MD [Primary Care Provider] - 1-2 days
[2021-08-11 03:55] VITALS: BP 135/94; RESP 18; TEMP 97.8
--- NOTE | 2021-08-11 04:11 | XR ---
EXAMINATION TYPE: XR chest 1V portable DATE OF EXAM: 08/11/2021 COMPARISON: NONE HISTORY: Cough TECHNIQUE: 2 views FINDINGS: 2 views AP portable obtained. Heart and mediastinum are normal. Lungs are clear. Diaphragm is normal. Bony thorax is intact. IMPRESSION: Normal chest. No change.
[2021-08-11 04:13] VITALS: PULSE 108
== END 2021-08-11 05:11 | disposition home or self-care (01) ==
LOC: EC 03:43
DX: J06.9 Acute upper respiratory infection, unspecified (principal); J44.9 Chronic obstructive pulmonary disease, unspecified; I10 Essential (primary) hypertension; K21.9 Gastro-esophageal reflux disease without esophagitis; Z79.1 Long term (current) use of non-steroidal anti-inflammatories (NSAID); F17.200 Nicotine dependence, unspecified, uncomplicated; Z20.822 Contact with and (suspected) exposure to COVID-19; Z91.030 Bee allergy status
CPT/HCPCS: 71045; 87635; 94640; 99285

== ENCOUNTER → 2021-08-15 | Outpatient (CLI) | payer OTHER ==
--- NOTE | 2021-08-17 12:06 | MM ---
Reason for exam: screening (asymptomatic). Last mammogram was performed 6 years ago. History: Family history of breast cancer in maternal grandmother. Took hormonal contraceptives for 1 year beginning at age 24. Physical Findings: A clinical breast exam by your physician is recommended on an annual basis and results should be correlated with mammographic findings. MG Screening Mammo w CAD Bilateral CC and MLO view(s) were taken. Prior study comparison: August 22, 2015, bilateral MG 3d diag mammo w/cad [facility]DE[facility]. There are scattered fibroglandular densities. There is chronic nodularity in the right breast. Bilateral nipple bars. No significant changes when compared with prior studies. ASSESSMENT: Benign, BI-RAD 2 RECOMMENDATION: Routine screening mammogram of both breasts in 1 year.
== END | disposition home or self-care (01) ==
LOC: RADMAMWWP 15:13
PROVIDERS: ATTEND Internal Medicine
DX: Z12.31 Encounter for screening mammogram for malignant neoplasm of breast (principal)
CPT/HCPCS: 77067

== ENCOUNTER → 2021-08-31 | Outpatient (CLI) | payer OTHER ==
[2021-08-31 12:12] LABS: Appearance,Urine Cloudy (Clear); Bacteria,Urine Rare /hpf; Bilirubin,Urine Negative (Negative); Blood,Urine Negative (Negative); Color,Urine Yellow; Glucose,Urine (UA) Negative (Negative); Ketones,Urine Negative (Negative); Leukocyte Esterase,Urine Large (Negative); Mucus,Urine Rare /hpf; Nitrite,Urine Negative (Negative); Protein,Urine Negative (Negative); RBC,Urine 4 /hpf (0-5); Specific Gravity,Urine 1.017 (1.001-1.035); Squamous Epithelial Cell,Urine 10 /hpf (0-4); Urobilinogen,Urine <2.0 mg/dL (<2.0); WBC,Urine 3 /hpf (0-5)
[2021-08-31 19:10] LABS: HCT 42.2 % (37.2-46.3); HGB 13.2 g/dL (12.0-15.0); MCH 28.6 pg (27.0-32.0); MCHC 31.3 g/dL (32.0-37.0); MCV 91.3 fL (80.0-97.0); Mean Platelet Volume 11.3 fL (9.5-12.2); NRBC Per 100 WBC 0 /100 WBCS (0.0-0.0); Platelet Count 259 X 10*3/uL (140-440); RBC 4.62 X 10*6/uL (4.10-5.20); RDW 13.3 % (11.5-14.5); WBC 12.32 X 10*3/uL (4.50-10.00)
[2021-08-31 19:46] LABS: % Iron Saturation 24.41 (12.00-45.00); African American GFR (CKD) 132.1 (60.0-200.0); Albumin 4.1 g/dL (3.8-4.9); Albumin/Globulin Ratio 1.71 (1.60-3.17); Anion Gap 10.5 mmol/L (10.00-18.00); BUN/Creat Ratio 15.67 Ratio (12.00-20.00); Blood Urea Nitrogen 9.4 mg/dL (9.0-27.0); Carbon Dioxide 25.5 mmol/L (20.0-27.5); Globulin 2.4 g/dL (1.6-3.3); Magnesium 1.7 mg/dL (1.5-2.4); Phosphorus 3.5 mg/dL (2.4-5.1); Potassium 5.1 mmol/L (3.5-5.5); Total Bilirubin 0.2 mg/dL (0.30-1.20); Total Protein 6.5 g/dL (6.2-8.2); Uric Acid 3.4 mg/dL (2.9-7.7)
[2021-08-31 20:07] LABS: Ferritin 55.4 ng/mL (10.0-291.0)
== END | disposition home or self-care (01) ==
LOC: LABWHC1 10:58
PROVIDERS: ATTEND Internal Medicine
DX: Q61.5 Medullary cystic kidney (principal); D64.9 Anemia, unspecified; N39.0 Urinary tract infection, site not specified; N25.81 Secondary hyperparathyroidism of renal origin; E55.9 Vitamin D deficiency, unspecified; M10.9 Gout, unspecified
CPT/HCPCS: 36415; 80053; 81001; 82306; 82728; 83540; 83550; 83735; 83970; 84100; 84550; 85027; 87086

== ENCOUNTER → 2021-09-05 | Outpatient (CLI) | payer OTHER ==
--- NOTE | 2021-09-05 16:19 | XR ---
EXAMINATION TYPE: XR chest 2V DATE OF EXAM: 09/05/2021 COMPARISON: 08/11/2021 INDICATION: Leukocytosis, history of smoking TECHNIQUE: Frontal and lateral views of the chest are obtained. FINDINGS: The heart size is normal. The pulmonary vasculature is normal. The lungs are clear. IMPRESSION: 1. No acute pulmonary process. 2. Evaluation for low-dose screen CT chest
== END | disposition home or self-care (01) ==
LOC: RADXRMAIN 15:44
PROVIDERS: ATTEND Internal Medicine
DX: D72.829 Elevated white blood cell count, unspecified (principal)
CPT/HCPCS: 71046

== ENCOUNTER 2021-09-12 16:08 | Emergency (ER) | payer OTHER ==
[2021-09-12] MEDS ORDERED: SODIUM CHLORIDE 0.9% 1,000 ML IV STA ×2 (18:33→21:17)
[2021-09-12] MEDS ORDERED: KETOROLAC 15 MG/ML 1 ML VIAL IVP STA (18:33)
[2021-09-12] MEDS ORDERED: diphenhydrAMINE 50 MG/ML 1 ML VIAL IVP STA (18:33)
--- NOTE | 2021-09-12 18:43 | ED ---
Headache HPI - General Chief Complaint: Headache Stated Complaint: dizzy, blurred vision Time Seen by Provider: 09/12/21 18:29 Source: patient, RN notes reviewed Mode of arrival: ambulatory Limitations: no limitations - History of Present Illness Initial Comments: This is a 41-year-old female who presents to the emergency department for lightheadedness, dizziness, and blurry vision. Patient states that this started approximately 6 hours prior to arrival without any precipitating events. She has never had any problems like this before. She is now starting to get a headache with the dizziness, however this was not present initially. Denies any changes in her routine and she has eaten what she would consider her normal amount today. Denies any known injuries or history of stroke. The blurriness is the same in both eyes. Denies any fevers, chills, sore throat, cough, dyspnea, chest pain, palpitations, abdominal pain, nausea, vomiting, diarrhea, or back pain. MD Complaint: headache - Related Data Home Medications Medication Instructions Recorded Confirmed Lisinopril [Prinivil] 10 mg PO DAILY 03/04/16 09/12/21 Vortioxetine Hydrobromide 20 mg PO DAILY 10/15/16 09/12/21 [Trintellix] oxyCODONE-APAP 10-325MG [Percocet 1 tab PO TID PRN 01/30/18 09/12/21 10-325 mg] busPIRone HCL [Buspar] 30 mg PO BID 06/09/19 09/12/21 Docusate [Colace] 100 mg PO BID 06/11/19 09/12/21 EPINEPHrine (Auto Inject) [Epipen] 0.3 mg IM ONCE PRN 06/11/19 09/12/21 Propranolol [Inderal] 40 mg PO DAILY 06/11/19 09/12/21 Cyclobenzaprine [Flexeril] 10 mg PO TID PRN 10/22/19 09/12/21 Albuterol Sulfate [Proair Hfa] 2 puff INHALATION RT-Q4H PRN 08/15/20 09/12/21 Topiramate [Trokendi Xr] 200 mg PO DAILY 08/15/20 09/12/21 Budesonide/Formoterol Fumarate 2 puff INHALATION RT-BID 10/25/20 09/12/21 [Symbicort 160-4.5 Mcg Inhaler] Cariprazine HCl [Vraylar] 3 mg PO HS 10/25/20 09/12/21 Dextroamphetamine/Amphetamine 30 mg PO BID 10/25/20 09/12/21 [Adderall] Rizatriptan Odt [Maxalt COMMERCIAL LENDING VICE PRESIDENT] 5 mg PO DAILY PRN 10/25/20 09/12/21 Rosuvastatin [Crestor] 20 mg PO DAILY 10/25/20 09/12/21 lamoTRIgine [LaMICtal] 150 mg PO BID 10/25/20 09/12/21 Cholecalciferol [Vitamin D3 (25 25 mcg PO DAILY 09/12/21 09/12/21 Mcg = 1000 Iu)] LORazepam [Ativan] 1 mg PO DAILY PRN 09/12/21 09/12/21 Prochlorperazine [Compazine] 5 mg PO QID PRN 09/12/21 09/12/21 Previous Rx's Medication Instructions Recorded Meclizine [Antivert] 25 mg PO BID PRN #15 tab 09/12/21 Metoclopramide [Reglan] 5 mg PO Q8H PRN #15 tab 09/12/21 Allergies Allergy/AdvReac Type Severity Reaction Status Date / Time bee venom protein (honey bee) Allergy Anaphylaxis Verified 09/12/21 19:51 omeprazole Allergy Rash/Hives Verified 09/12/21 19:51 Review of Systems ROS Statement: Those systems with pertinent positive or pertinent negative responses have been documented in the HPI. ROS Other: All systems not noted in ROS Statement are negative. Past Medical History Past Medical History: COPD, GERD/Reflux, Hyperlipidemia, Hypertension, Osteoarthritis (OA), Sleep Apnea/CPAP/BIPAP Additional Past Medical History / Comment(s): Hx migraines, has Nexplanon Implant, uses CPAP. History of Any Multi-Drug Resistant Organisms: None Reported Additional Past Surgical History / Comment(s): Sinus surgery, eye surgey, Pain Procedures. Past Anesthesia/Blood Transfusion Reactions: No Reported Reaction, Motion Sickness Past Psychological History: Anxiety, Bipolar, Depression Smoking Status: Current every day smoker Past Alcohol Use History: None Reported Past Drug Use History: Marijuana - Past Family History Mother Family Medical History: Cancer Additional Family Medical History / Comment(s): Lymphoma. Father Family Medical History: Hypertension General Exam Limitations: no limitations General appearance: alert, in no apparent distress Head exam: Present: atraumatic, normocephalic, normal inspection Eye exam: Present: normal appearance, PERRL, EOMI. Absent: scleral icterus, conjunctival injection, periorbital swelling Pupils: Present: normal accommodation ENT exam: Present: normal exam, mucous membranes moist Neck exam: Present: normal inspection. Absent: tenderness, meningismus, lymphadenopathy Respiratory exam: Present: normal lung sounds bilaterally. Absent: respiratory distress, wheezes, rales, rhonchi, stridor Cardiovascular Exam: Present: regular rate, normal rhythm, normal heart sounds. Absent: systolic murmur, diastolic murmur, rubs, gallop, clicks Neurological exam: Present: alert, oriented X3, CN II-XII intact Psychiatric exam: Present: normal affect, normal mood Skin exam: Present: warm, dry, intact, normal color. Absent: rash Course Vital Signs 09/12/21 09/12/21 17:26 21:16 Temperature 98.4 F Pulse Rate 104 H 86 Respiratory 20 14 Rate Blood Pressure 150/93 116/72 O2 Sat by Pulse 100 100 Oximetry Medical Decision Making - Medical Decision Making This is a 41-year-old female who presents to the emergency department for dizziness, lightheadedness, and blurry vision. Full panel of lab work and computed tomography scan of the brain without contrast obtained. She is neurologically intact. Lab work and computed tomography scan revealed no irregularities. Patient given 2 L bolus of normal saline, Reglan, Benadryl, and Toradol. Patient states that her symptoms did improve substantially. She was initially given a liter bolus of normal saline, Toradol, and Benadryl. Her symptoms did not improve until after she received another liter bolus and Reglan. Given that the symptoms are not intermittent or positional, this is not consistent with vertigo. However, given that she improved with Reglan, I will send a prescription for Reglan and Antivert to her pharmacy to take when she becomes dizzy in the future, in the event it improves her symptoms. If she continues to have these episodes, she will likely need a more in-depth outpatient workup with her primary care provider. This case was discussed in detail with the attending ED physician. Presentation, findings, and treatment plan discussed in detail as well. - Lab Data Result diagrams: 09/12/21 19:15 09/12/21 19:15 Lab Results 09/12/21 09/12/21 09/12/21 Range/Units 19:15 19:15 19:15 WBC 10.3 (3.8-10.6) k/uL RBC 4.57 (3.80-5.40) m/uL Hgb 13.2 (11.4-16.0) gm/dL Hct 42.2 (34.0-46.0) % MCV 92.2 (80.0-100.0) fL MCH 29.0 (25.0-35.0) pg MCHC 31.4 (31.0-37.0) g/dL RDW 12.8 (11.5-15.5) % Plt Count 322 (150-450) k/uL MPV 7.6 Neutrophils % 62 % Lymphocytes % 28 % Monocytes % 5 % Eosinophils % 2 % Basophils % 1 % Neutrophils # 6.4 (1.3-7.7) k/uL Lymphocytes # 2.9 (1.0-4.8) k/uL Monocytes # 0.5 (0-1.0) k/uL Eosinophils # 0.2 (0-0.7) k/uL Basophils # 0.1 (0-0.2) k/uL Sodium 138 (137-145) mmol/L Potassium 4.0 (3.5-5.1) mmol/L Chloride 101 (98-107) mmol/L Carbon Dioxide 28 (22-30) mmol/L Anion Gap 9 mmol/L BUN 6 L (7-17) mg/dL Creatinine 0.62 (0.52-1.04) mg/dL Est GFR (CKD-EPI)AfAm >90 (>60 ml/min/1.73 sqM) Est GFR (CKD-EPI)NonAf >90 (>60 ml/min/1.73 sqM) Glucose 99 (74-99) mg/dL Calcium 9.4 (8.4-10.2) mg/dL Magnesium 2.0 (1.6-2.3) mg/dL Total Bilirubin 0.7 (0.2-1.3) mg/dL AST 28 (14-36) U/L ALT 23 (4-34) U/L Alkaline Phosphatase 71 (38-126) U/L Troponin I (0.000-0.034) ng/mL Total Protein 7.9 (6.3-8.2) g/dL Albumin 4.7 (3.5-5.0) g/dL TSH 1.260 (0.465-4.680) mIU/L Urine Color Light Yellow Urine Appearance Clear (Clear) Urine pH 7.0 (5.0-8.0) Ur Specific Gordon 1.006 (1.001-1.035) Urine Protein Negative (Negative) Urine Glucose (UA) Negative (Negative) Urine Ketones Negative (Negative) Urine Blood Negative (Negative) Urine Nitrite Negative (Negative) Urine Bilirubin Negative (Negative) Urine Urobilinogen <2.0 (<2.0) mg/dL Ur Leukocyte Esterase Small H (Negative) Urine RBC 2 (0-5) /hpf Urine WBC <1 (0-5) /hpf Ur Squamous Epith Cells 1 (0-4) /hpf Urine HCG, Qual (Not Detectd) Urine Opiates Screen Not Detected (NotDetected) Ur Oxycodone Screen Not Detected (NotDetected) Urine Methadone Screen Not Detected (NotDetected) Ur Propoxyphene Screen Not Detected (NotDetected) Ur Barbiturates Screen Not Detected (NotDetected) U Tricyclic Antidepress Not Detected (NotDetected) Ur Phencyclidine Scrn Not Detected (NotDetected) Ur Amphetamines Screen Detected H (NotDetected) U Methamphetamines Scrn Not Detected (NotDetected) U Benzodiazepines Scrn Detected H (NotDetected) Urine Cocaine Screen Not Detected (NotDetected) U Marijuana (THC) Screen Detected H (NotDetected) 09/12/21 09/12/21 Range/Units 19:15 19:15 WBC (3.8-10.6) k/uL RBC (3.80-5.40) m/uL Hgb (11.4-16.0) gm/dL Hct (34.0-46.0) % MCV (80.0-100.0) fL MCH (25.0-35.0) pg MCHC (31.0-37.0) g/dL RDW (11.5-15.5) % Plt Count (150-450) k/uL MPV Neutrophils % % Lymphocytes % % Monocytes % % Eosinophils % % Basophils % % Neutrophils # (1.3-7.7) k/uL Lymphocytes # (1.0-4.8) k/uL Monocytes # (0-1.0) k/uL Eosinophils # (0-0.7) k/uL Basophils # (0-0.2) k/uL Sodium (137-145) mmol/L Potassium (3.5-5.1) mmol/L Chloride (98-107) mmol/L Carbon Dioxide (22-30) mmol/L Anion Gap mmol/L BUN (7-17) mg/dL Creatinine (0.52-1.04) mg/dL Est GFR (CKD-EPI)AfAm (>60 ml/min/1.73 sqM) Est GFR (CKD-EPI)NonAf (>60 ml/min/1.73 sqM) Glucose (74-99) mg/dL Calcium (8.4-10.2) mg/dL Magnesium (1.6-2.3) mg/dL Total Bilirubin (0.2-1.3) mg/dL AST (14-36) U/L ALT (4-34) U/L Alkaline Phosphatase (38-126) U/L Troponin I <0.012 (0.000-0.034) ng/mL Total Protein (6.3-8.2) g/dL Albumin (3.5-5.0) g/dL TSH (0.465-4.680) mIU/L Urine Color Urine Appearance (Clear) Urine pH (5.0-8.0) Ur Specific Gordon (1.001-1.035) Urine Protein (Negative) Urine Glucose (UA) (Negative) Urine Ketones (Negative) Urine Blood (Negative) Urine Nitrite (Negative) Urine Bilirubin (Negative) Urine Urobilinogen (<2.0) mg/dL Ur Leukocyte Esterase (Negative) Urine RBC (0-5) /hpf Urine WBC (0-5) /hpf Ur Squamous Epith Cells (0-4) /hpf Urine HCG, Qual Not Detected (Not Detectd) Urine Opiates Screen (NotDetected) Ur Oxycodone Screen (NotDetected) Urine Methadone Screen (NotDetected) Ur Propoxyphene Screen (NotDetected) Ur Barbiturates Screen (NotDetected) U Tricyclic Antidepress (NotDetected) Ur Phencyclidine Scrn (NotDetected) Ur Amphetamines Screen (NotDetected) U Methamphetamines Scrn (NotDetected) U Benzodiazepines Scrn (NotDetected) Urine Cocaine Screen (NotDetected) U Marijuana (THC) Screen (NotDetected) - EKG Data EKG Comments: Normal sinus rhythm. Incomplete right bundle branch block. Ventricular rate 95 bpm, WI interval 146 ms, QRS duration 97 ms, QTC 402 ms. - Radiology Data Radiology results: report reviewed, image reviewed Disposition Clinical Impression: Dizziness Disposition: HOME SELF-CARE Instructions (If sedation given, give patient instructions): Vertigo (ED), Dizziness (ED) Additional Instructions: Return to the emergency department with any new, worsening, or concerning symptoms. Try taking the Antivert or Reglan when you experience episodes of dizziness, starting with the Antivert. Also make sure you get plenty of rest. If symptoms continue to recur despite the use of Antivert and Reglan, you need may need a more in-depth workup with your primary care provider. Follow up with your primary care provider in 1-2 days. Prescriptions: Meclizine [Antivert] 25 mg PO BID PRN #15 tab PRN Reason: Vertigo Metoclopramide [Reglan] 5 mg PO Q8H PRN #15 tab PRN Reason: Vertigo Is patient prescribed a controlled substance at d/c from ED?: No Referrals: Tiarra Jimeenz MD [Primary Care Provider] - 1-2 days
[2021-09-12 18:58] VITALS: TEMP 98.4
[2021-09-12 19:32] LABS: Basophils # (A) 0.1 k/uL (0-0.2); Basophils % (A) 1 %; Eosinophils # (A) 0.2 k/uL (0-0.7); Eosinophils % (A) 2 %; HCT 42.2 % (34.0-46.0); HGB 13.2 gm/dL (11.4-16.0); Lymphocytes # (A) 2.9 k/uL (1.0-4.8); Lymphocytes % (A) 28 %; MCHC 31.4 g/dL (31.0-37.0); MCV 92.2 fL (80.0-100.0); Mean Platelet Volume 7.6; Monocytes # (A) 0.5 k/uL (0-1.0); Monocytes % (A) 5 %; Neutrophils # (A) 6.4 k/uL (1.3-7.7); Neutrophils % (A) 62 %; Platelet Count 322 k/uL (150-450); RBC 4.57 m/uL (3.80-5.40); RDW 12.8 % (11.5-15.5); WBC 10.3 k/uL (3.8-10.6)
[2021-09-12 19:35] LABS: Appearance,Urine Clear (Clear); Bilirubin,Urine Negative (Negative); Blood,Urine Negative (Negative); Color,Urine Light Yellow; Glucose,Urine (UA) Negative (Negative); Ketones,Urine Negative (Negative); Leukocyte Esterase,Urine Small (Negative); Nitrite,Urine Negative (Negative); Protein,Urine Negative (Negative); RBC,Urine 2 /hpf (0-5); Specific Gravity,Urine 1.006 (1.001-1.035); Squamous Epithelial Cell,Urine 1 /hpf (0-4); Urobilinogen,Urine <2.0 mg/dL (<2.0); WBC,Urine <1 /hpf (0-5)
[2021-09-12 19:52] LABS: ALT 23 U/L (4-34); AST 28 U/L (14-36); African American GFR (CKD) >90 (>60 ml/min/1.73 sqM); Albumin 4.7 g/dL (3.5-5.0); Alkaline Phosphatase 71 U/L (38-126); Anion Gap 9 mmol/L; Blood Urea Nitrogen 6 mg/dL (7-17); Calcium 9.4 mg/dL (8.4-10.2); Carbon Dioxide 28 mmol/L (22-30); Chloride 101 mmol/L (98-107); Glucose 99 mg/dL (74-99); Non-African American GFR(CKD) >90 (>60 ml/min/1.73 sqM); Sodium 138 mmol/L (137-145); Total Bilirubin 0.7 mg/dL (0.2-1.3); Total Protein 7.9 g/dL (6.3-8.2)
[2021-09-12 20:01] LABS: Amphetamine Screen,Urine Detected (NotDetected); Barbiturate Screen,Urine Not Detected (NotDetected); Benzodiazepines Screen,Urine Detected (NotDetected); Cocaine Screen,Urine Not Detected (NotDetected); Methadone Screen, Urine Not Detected (NotDetected); Opiate Screen,Urine Not Detected (NotDetected); Oxycodone Screen, Urine Not Detected (NotDetected); Phencyclidine Screen,Urine Not Detected (NotDetected); Tricyclic Antidepressant,Urine Not Detected (NotDetected); Urn Cannabinoid Scrn Detected (NotDetected)
--- NOTE | 2021-09-12 20:20 | CT ---
EXAMINATION TYPE: CT brain wo con DATE OF EXAM: 09/12/2021 COMPARISON: None HISTORY: dizziness, headache, blurred vision CT DLP: 1208.4 mGycm Automated exposure control for dose reduction was used. Images of the brain obtained without contrast. Ventricles and sulci appear normal. There is no mass effect or midline shift. No sign of intracranial hemorrhage. Calvarium is intact. IMPRESSION: Normal unenhanced head CT scan.
[2021-09-12] MEDS ORDERED: METOCLOPRAMIDE 5 MG/ML 2 ML VIAL IVP STA (21:16)
[2021-09-12 21:17] VITALS: BP 116/72; PULSE 86; RESP 14
== END 2021-09-12 22:03 | disposition home or self-care (01) ==
LOC: EC 16:08
DX: R42 Dizziness and giddiness (principal); I10 Essential (primary) hypertension; J44.9 Chronic obstructive pulmonary disease, unspecified; K21.9 Gastro-esophageal reflux disease without esophagitis; E78.5 Hyperlipidemia, unspecified; M19.90 Unspecified osteoarthritis, unspecified site; F31.9 Bipolar disorder, unspecified; F41.9 Anxiety disorder, unspecified; F17.200 Nicotine dependence, unspecified, uncomplicated; F12.90 Cannabis use, unspecified, uncomplicated; Z79.51 Long term (current) use of inhaled steroids; Z79.899 Other long term (current) drug therapy
CPT/HCPCS: 36415; 93005; 80053; 84443; 83735; 84484; 85025; 81001; 81025; 80306; 70450; 99284; 96374; 96375 ×2; 96361 ×2; J1200; J2765; J1885

== ENCOUNTER 2021-10-25 19:05 | Emergency (ER) | payer OTHER ==
[2021-10-25 19:08] VITALS: BP 156/85; PULSE 116; RESP 18; TEMP 98.1
[2021-10-25] MEDS ORDERED: IBUPROFEN 600 MG TAB PO STA (19:33)
[2021-10-25] MEDS ORDERED: BACITRACIN OINT 1 EACH PACKET TOPICAL ONE (19:33)
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
--- NOTE | 2021-10-25 20:14 | XR ---
PROCEDURE: XR hand complete RT - 3V DATE AND TIME: 10/25/2021 7:50 PM CLINICAL INDICATION: Pain; rt hand injury s/p fall TECHNIQUE: Department protocol COMPARISON: None FINDINGS: There is no fracture or malalignment. The soft tissues are unremarkable. IMPRESSION: NO ACUTE PROCESS.
== END 2021-10-25 21:12 | disposition home or self-care (01) ==
LOC: EC 19:05
DX: S60.511A Abrasion of right hand, initial encounter (principal); J44.9 Chronic obstructive pulmonary disease, unspecified; K21.9 Gastro-esophageal reflux disease without esophagitis; E78.5 Hyperlipidemia, unspecified; I10 Essential (primary) hypertension; M19.90 Unspecified osteoarthritis, unspecified site; F41.9 Anxiety disorder, unspecified; F31.9 Bipolar disorder, unspecified; F17.200 Nicotine dependence, unspecified, uncomplicated; F12.90 Cannabis use, unspecified, uncomplicated; Z91.030 Bee allergy status; Z88.8 Allergy status to other drugs, medicaments and biological substances; W01.0XXA Fall on same level from slipping, tripping and stumbling without subsequent striking against object, initial encounter; Y93.39 Activity, other involving climbing, rappelling and jumping off
CPT/HCPCS: 99283

== ENCOUNTER → 2023-01-23 | Outpatient (CLI) | payer OTHER ==
--- NOTE | 2023-01-23 14:29 | CT ---
EXAMINATION TYPE: CT urogram wo/w con DATE OF EXAM: 01/23/2023 COMPARISON: 10/25/2020. HISTORY: Medullary cystic kidney CT DLP: 4062.1 mGycm CONTRAST: Performed and without and with IV Contrast, patient injected with 100 mL of Isovue 300. CT Urography was performed with unenhanced followed by enhanced images of the kidneys, ureters and ur inary bladder. Delayed images were obtained. 3d reconstruction was perfromed at a separate work sta tion. FINDINGS: KIDNEYS/BLADDER: No hydronephrosis. No nephrolithiasis. No disctinct renal mass. Urinary bladder g rossly unremarkable. LUNG BASES-: No visible nodule. No infiltrate. LIVER/GB: No calcified gallstones. No space occupying hepatic lesion. Biliary tree is of normal ca liber. PANCREAS: No inflammation. No distinct mass. SPLEEN: No splenic enlargement. No lesion seen. ADRENALS: No nodule. No thickening. BOWEL: Normal appendix. Normal bowel caliber. No inflammation. GENITAL ORGANS: No gross abnormality. LYMPH NODES: No greater than 1cm abdominal or pelvic lymph nodes are appreciated. AORTA: No significant abnormality. OSSEOUS STRUCTURES: No significant abnormality is seen. OTHER: No significant additional abnormality is seen. IMPRESSION: 1. No significant abnormality seen. No CT evidence to suggest medullary sponge kidney.
== END | disposition home or self-care (01) ==
LOC: RADCTMAIN 13:07
PROVIDERS: ATTEND Internal Medicine
DX: Q61.5 Medullary cystic kidney (principal)
CPT/HCPCS: 74178; 74400; Q9967

== ENCOUNTER → 2023-02-12 | Outpatient (CLI) | payer OTHER ==
--- NOTE | 2023-02-12 12:43 | XR ---
EXAMINATION TYPE: XR chest 2V DATE OF EXAM: 02/12/2023 12:38 PM COMPARISON: Chest radiographs from 09/05/2021 TECHNIQUE: XR chest 2V Frontal and lateral views of the chest. CLINICAL INDICATION:Female, 42 years old with history of R05 cough; FINDINGS: Lungs/Pleura: There is no evidence of pleural effusion, focal consolidation, or pneumothorax. Pulmonary vascularity: Unremarkable. Heart/mediastinum: Cardiomediastinal silhouette is unremarkable. Musculoskeletal: No acute osseous pathology. Mild degenerative changes of the thoracic spine. . IMPRESSION: No acute cardiopulmonary disease/process.
== END | disposition home or self-care (01) ==
LOC: RADXRMAIN 12:28
PROVIDERS: ATTEND Internal Medicine
DX: R05.8 Other specified cough (principal)
CPT/HCPCS: 71046

== ENCOUNTER → 2023-04-02 | Outpatient (CLI) | payer OTHER ==
--- NOTE | 2023-04-04 08:06 | XR ---
EXAMINATION TYPE: XR shoulder complete LT DATE OF EXAM: 04/02/2023 12:14 PM CLINICAL INDICATION:Female, 42 years old with history of M25.512 LEFT SHOULDER PAIN; [facility]. 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 FINDINGS: No evidence of acute osseous pathology, joint dislocation, or soft tissue swelling. Mild degenerative changes of the AC joint. IMPRESSION: No acute osseous pathology. Mild AC joint degenerative changes.
== END | disposition home or self-care (01) ==
LOC: RADXRMAIN 11:59
PROVIDERS: ATTEND Internal Medicine
DX: M19.012 Primary osteoarthritis, left shoulder (principal)

== ENCOUNTER → 2024-02-13 | Outpatient (CLI) | payer OTHER ==
--- NOTE | 2024-02-20 12:16 | MM ---
Reason for Exam: Screening (asymptomatic). Last mammogram was performed 2 year(s) and 6 month(s) ago. Patient History: Menarche at age 13. First Full-Term at age 27. Hormonal Contraceptives for 1 year from age 24 until age 35. Maternal grandmother had breast cancer. Risk Values: Urmila 5 year model risk: 0.7%. NCI Lifetime model risk: 10.9%. Prior Study Comparison: 12/15/2009 Bilateral Diagnostic Mammogram, [facility]. 08/22/2015 Bilateral Diagnostic Mammogram, [facility]. 08/15/2021 Bilateral Screening Mammogram, [facility]. Tissue Density: There are scattered areas of fibroglandular density. Findings: Analyzed By CAD. Right breast: There is no suspicious group of microcalcifications or new suspicious mass. Left breast: There is no suspicious group of microcalcifications or new suspicious mass. Overall Assessment: Negative, BI-RAD 1 Management: Screening Mammogram of both breasts in [address] [facility] will attempt to contact patient to return for supplemental views and ultrasound if indicated. Patient should continue monthly self-breast exams. A clinical breast exam by your physician is recommended on an annual basis. This exam should not preclude additional follow-up of suspicious palpable abnormalities. Note on Urmila scores and lifetime risk: 1. A Urmila score greater than 3% is considered moderate risk. If this is the case, consider specialist referral to assess eligibility for a risk reducing agent. 2. If overall lifetime risk for the development of breast cancer is 20% or higher, the patient may qualify for future screening with alternating mammogram and breast MRI. [facility], , 02/20/2024 12:13 PM. Electronically signed and approved by: Dago Alba DO
== END | disposition home or self-care (01) ==
LOC: RADMRIMAIN 09:19
PROVIDERS: ATTEND Internal Medicine
DX: Z12.31 Encounter for screening mammogram for malignant neoplasm of breast (principal); R92.323 Mammographic fibroglandular density, bilateral breasts; Z80.3 Family history of malignant neoplasm of breast
CPT/HCPCS: 77067

== ENCOUNTER → 2024-05-10 | Outpatient (CLI) | payer OTHER ==
[2024-05-10 12:52] VITALS: BP 142/87; PULSE 94; RESP 16; TEMP 97.1
--- NOTE | 2024-05-10 16:20 | P.PAINPG ---
Objective - Vital Signs Vital signs: Vital Signs Temp 97.1 F L 05/10/24 12:48 Pulse 94 05/10/24 12:48 Resp 16 05/10/24 12:48 BP 142/87 05/10/24 12:48 Pulse Ox 96 05/10/24 12:48 FiO2 Intake & Output 05/09/24 05/10/24 05/10/24 18:59 06:59 18:59 Weight 122.47 kg PQRS Measure Charge Sheet Mode of Arrival: Ambulatory Comment: A 43 yr old female with a history of severe and chronic LBP secondary to radic ulopathy, spondylosis with facet arthropathy without myelopathy presents today for evaluation. Pain level is provoked at 8 /10 in intensity, constant, predominantly axial, localized in the lumbar spine, dull in character w occasional shooting towards the BL knees. She also complains of R hip pain but lost the x- ray script provided to her by her PCP. Pain is provoked by over activity. Pain is alleviated with massage, medications, topical, repositioning and rest. Oswestry axial pain score at 22. Interventional pain procedures completed include Patient is currently on Oxycodone, THC Patient denies any side effects of the medication(s), denies excessive drowsiness or sleepiness, denies suicidal ideation and reports that the current pain medication is helping to control the pain and improve activities of daily living. Patient denies any motor or sensory deficits. Patient denies any fever or night sweats, denies any change in the bowel movements or urination. Physical Examination: -Constitutional: Cooperative. Not in acute distress . - Neurologic: Cranial nerve II to XII intact. No focal neurological deficits. - Psychatric: Alert & oriented x 3. Matching mood & appropriate affect. J udgment and insight intact. - Musculoskeletal: Cervical spine: Muscle bulk/ tone/ strength in the bilateral upper extremities normal Vertebral body tenderness to palpation over Spurling test positive Distraction test positive Facet loading test positive TTP Thoracic spine Muscle bulk / tone/ strength in the bilateral paraspinal muscles normal Vertebral body tender to palpation over Facet loading test positive TTP Lumbar spine: +R Trendelenburg Motor bulk/ tone/ strength lower extremities , thigh and legs : 5/5 Deep tendon reflexes : Normal Knee Jerk. Normal Ankle Jerk . Vertebral body tenderness to palpation over L4 Conner Test positive Lumbar Facet Loading Test positive Straight Leg Raise: positive at 30 degrees right side/ left side Gaenslen's Test positive Sacral spine : Severe tenderness over the Sacroiliac joint: right side / left side Range of motion: Flexion of the lumbar spine <60 degrees Range of motion: Extension of the lumbar spine <20 degrees Gaenslen's Test positive right side / left side Desiree test: positive right side / left side Thigh Thrust Test positive right side / left side Sacral Thrust Test positive right side / left side Assessment and plan: Chronic LBP secondary to lumbar radiculopathy, spondylosis with facet arthropathy without myelopathy Recommendation of PT x 6 wks, lumbar x ray M54.16 and replacement R hip x ray M16.10. All questions answered. I have spent less than 30 minutes on patient care today. Dr Langley was available by phone for the evaluation of this patient. The time was used to review the medical records including relevant urine studies and Prescription history (MAPs), review of the available imaging, evaluation and examination of the patient, coordination of care with the medical staff and if applicable referring physicians, as well as creation of the medical record - Pain Location Bilateral Lower Back Non-Pharmacological Interventions: Heat, Ice, Inactivity, Position/Reposition, Relaxation Technique Pharmacological Interventions: PRN Medication, Scheduled Medication, Topical Medication PQRS Narrative: Smoking Status Former smoker Blood Pressure 142/87 Pain Intensity [Bilateral 6 Lower Back] Scale Used Numeric (1 - 10) Hx Alcohol Use (MH) No Home Medications: Ambulatory Orders lisinopriL [Prinivil] 10 mg PO DAILY 03/04/16 Vortioxetine Hydrobromide [Trintellix] 20 mg PO DAILY 10/15/16 oxyCODONE-APAP 10-325MG [Percocet 10-325 mg] 1 tab PO TID PRN 01/30/18 busPIRone HCL [Buspar] 30 mg PO BID 06/09/19 Docusate [Colace] 100 mg PO BID 06/11/19 EPINEPHrine (Auto Inject) [Epipen] 0.3 mg IM ONCE PRN 06/11/19 Propranolol [Inderal] 40 mg PO DAILY 06/11/19 Cyclobenzaprine [Flexeril] 10 mg PO TID PRN 10/22/19 Albuterol Sulfate [Proair Hfa] 2 puff INHALATION RT-Q4H PRN 08/15/20 Topiramate [Trokendi Xr] 200 mg PO DAILY 08/15/20 Budesonide/Formoterol Fumarate [Symbicort 160-4.5 Mcg Inhaler] 2 puff INHALATION RT-BID 10/25/20 Cariprazine HCl [Vraylar] 3 mg PO HS 10/25/20 Dextroamphetamine/Amphetamine [Adderall] 30 mg PO BID 10/25/20 Rizatriptan Odt [Maxalt [employer]ING [employer]ING CLERK] 5 mg PO DAILY PRN 10/25/20 Rosuvastatin [Crestor] 20 mg PO DAILY 10/25/20 lamoTRIgine [LaMICtal] 150 mg PO BID 10/25/20 Cholecalciferol [Vitamin D3 (25 Mcg = 1000 Iu)] 25 mcg PO DAILY 09/12/21 LORazepam [Ativan] 1 mg PO DAILY PRN 09/12/21 Meclizine [Antivert] 25 mg PO BID PRN #15 tab 09/12/21 Metoclopramide [Reglan] 5 mg PO Q8H PRN #15 tab 09/12/21 Prochlorperazine [Compazine] 5 mg PO QID PRN 09/12/21 Controlled Substance Measures - Controlled Substance Measures Is patient prescribed a controlled substance at discharge?: No
== END ==
LOC: PNWHC3 12:33
PROVIDERS: ATTEND Specialist
DX: M47.26 Other spondylosis with radiculopathy, lumbar region (principal); G89.29 Other chronic pain; Z87.891 Personal history of nicotine dependence; Z91.030 Bee allergy status; Z88.6 Allergy status to analgesic agent
CPT/HCPCS: 99211

== ENCOUNTER → 2024-09-21 | Outpatient (CLI) | payer OTHER ==
[2024-09-21 14:29] VITALS: BP 141/90; PULSE 78; RESP 16; TEMP 98.2
--- NOTE | 2024-09-21 15:37 | P.SLEEP ---
History of Present Illness H&P Date: 09/21/24 This is a 44-year-old female patient, presenting to the sleep center with concerns of ongoing hypersomnia and sleepiness. The patient has been diagnosed having obstructive sleep apnea many years back. She was under the care of Dr. CORREA and she was found to have severe obstructive sleep apnea and she was given CPAP therapy. The patient used the machine for quite some time and ultimately she stopped treatment. Over the years, the patient has become more symptomatic. For now, she has loud snoring, witnessed apneas and chronic hypersomnia sleepiness. Her Lakehead score is currently at 6. She is disabled due to her medical problems and comorbidities. She is living at her own house and she has a autistic child at home. She has history of ADHD maintained on Concerta. She has chronic anxiety and depression and the patient has significant social anxiety where she is unable even to drive a car. She is maintained on Vraylar and Lamictal. She smokes marijuana on a daily basis. She has hypertension, hyperlipidemia, reflux, COPD, degenerative arthritis, migraines, chronic back pain and she is morbidly obese. He goes to bed at around 11 PM, gets about at 6 AM in the morning and on weekends, she tends to sleep longer and she gets out of bed between 7 and 9 AM in the morning. She occasionally takes naps during the day. No sleep paralysis. No hallucinations. No cataplexy. On and off, she consumes an energy drink/monster. Over the years, she has gained weight. As her condition got worse, the patient presented to the sleep center to undergo further investigation she is interested in going back on CPAP therapy. No history of grinding. No sleepwalking. No sleep talking. No restlessness in lower extremities. No nocturnal heartburn or chest pain. Review of Systems Constitutional: Reports daytime sleepiness, Reports fatigue, Reports weight gain Eyes: denies as per HPI, denies blurred vision, denies bulging eye, denies decreased vision, denies diplopia, denies discharge, denies dry eye, denies irritation, denies itching, denies pain, denies photophobia, denies loss of peripheral vision, denies loss of vision, denies tunnel vision/blind spots Ears: deny: decreased hearing, ear discharge, earache, tinnitus Ears, nose, mouth and throat: Reports as per HPI Breasts: absent: as per HPI, change in shape, gynecomastia, masses, nipple discharge, pain, skin changes, swelling Breasts: Reports as per HPI Cardiovascular: Reports as per HPI Respiratory: Reports sleep apnea, Reports snoring Gastrointestinal: Reports as per HPI Genitourinary: Reports as per HPI Menstruation: Reports as per HPI Musculoskeletal: Reports as per HPI Musculoskeletal: absent: ankle pain, ankle stiffness, ankle swelling, as per HPI, elbow pain, elbow stiffness, elbow swelling, foot pain, foot stiffness, foot swelling, hand pain, hand stiffness, hand swelling, hip pain, hip stiffness, hip swelling, knee pain, knee stiffness, knee swelling, shoulder pain, shoulder stiffness, shoulder swelling, wrist pain, wrist stiffness, wrist swelling Integumentary: Reports as per HPI Neurological: Reports as per HPI Psychiatric: Reports change in sleep habits, Reports hypersomnia, Reports sleep disturbances Endocrine: Reports as per HPI, Reports fatigue Hematologic/Lymphatic: Reports as per HPI Allergic/Immunologic: Reports as per HPI Past Medical History Past Medical History: COPD, GERD/Reflux, Hyperlipidemia, Hypertension, Osteoarthritis (OA), Sleep Apnea/CPAP/BIPAP Additional Past Medical History / Comment(s): Hx migraines, has Nexplanon Implant, uses CPAP, ADHD, Depression/Bipolar, lower back pain. History of Any Multi-Drug Resistant Organisms: None Reported Additional Past Surgical History / Comment(s): Sinus surgery, eye surgey, Pain Procedures. Past Anesthesia/Blood Transfusion Reactions: No Reported Reaction, Motion Sickness Past Psychological History: Anxiety, Bipolar, Depression Smoking Status: Former smoker Past Alcohol Use History: Rare Additional Past Alcohol Use History / Comment(s): Started smoking at age 13 or 14, smokes 2-3 cigarettes per day. Past Drug Use History: Marijuana Additional Drug Use History / Comment(s): Occasional Marijuana use. - Past Family History Mother Family Medical History: Cancer, Hypertension Additional Family Medical History / Comment(s): Lymphoma. (dads medical hx = HTN, high cholesterol, sleep apnea) Father Family Medical History: Hypertension Medications and Allergies Home Medications Medication Instructions Recorded Confirmed Type lisinopriL [Prinivil] 10 mg PO DAILY 03/04/16 05/10/24 History Vortioxetine Hydrobromide 20 mg PO DAILY 10/15/16 05/10/24 History [Trintellix] oxyCODONE-APAP 10-325MG [Percocet 1 tab PO TID PRN 01/30/18 05/10/24 History 10-325 mg] busPIRone HCL [Buspar] 30 mg PO BID 06/09/19 05/10/24 History Docusate [Colace] 100 mg PO BID 06/11/19 05/10/24 History EPINEPHrine (Auto Inject) [Epipen] 0.3 mg IM ONCE PRN 06/11/19 05/10/24 History Propranolol [Inderal] 40 mg PO DAILY 06/11/19 05/10/24 History Cyclobenzaprine [Flexeril] 10 mg PO TID PRN 10/22/19 05/10/24 History Albuterol Sulfate [Proair Hfa] 2 puff INHALATION RT-Q4H PRN 08/15/20 05/10/24 History Topiramate [Trokendi Xr] 200 mg PO DAILY 08/15/20 05/10/24 History Budesonide/Formoterol Fumarate 2 puff INHALATION RT-BID 10/25/20 05/10/24 History [Symbicort 160-4.5 Mcg Inhaler] Cariprazine HCl [Vraylar] 3 mg PO HS 10/25/20 05/10/24 History Dextroamphetamine/Amphetamine 30 mg PO BID 10/25/20 05/10/24 History [Adderall] Rizatriptan Odt [Maxalt [employer]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] 5 mg PO DAILY PRN 10/25/20 05/10/24 History Rosuvastatin [Crestor] 20 mg PO DAILY 10/25/20 05/10/24 History lamoTRIgine [LaMICtal] 150 mg PO BID 10/25/20 05/10/24 History Cholecalciferol [Vitamin D3 (25 25 mcg PO DAILY 09/12/21 05/10/24 History Mcg = 1000 Iu)] LORazepam [Ativan] 1 mg PO DAILY PRN 09/12/21 05/10/24 History Meclizine [Antivert] 25 mg PO BID PRN #15 tab 09/12/21 05/10/24 Rx Metoclopramide [Reglan] 5 mg PO Q8H PRN #15 tab 09/12/21 05/10/24 Rx Prochlorperazine [Compazine] 5 mg PO QID PRN 09/12/21 05/10/24 History Allergies Allergy/AdvReac Type Severity Reaction Status Date / Time bee venom protein (honey bee) Allergy Anaphylaxis Verified 05/10/24 12:47 omeprazole Allergy Rash/Hives Verified 05/10/24 12:47 Physical Exam Vitals: Vital Signs Temp Pulse Resp BP Pulse Ox 09/21/24 14:28 98.2 F 78 16 141/90 95 Intake and Output 09/20/24 09/21/24 09/21/24 22:59 06:59 14:59 Other: Weight 127.63 kg The patient appeared well nourished and normally developed. Vital signs as documented. Patient has a body mass index of 48.2. Lakehead score is at 6 Head exam is unremarkable. No scleral icterus or corneal arcus noted. Neck is without jugular venous distension, thyromegaly, or carotid bruits. Carotid upstrokes are brisk bilaterally. Lungs are clear to auscultation and percussion. Cardiac exam reveals the PMI to be normally sized and situated. Rhythm is regular. First and second heart sounds normal. No murmurs, rubs or gallops. Abdominal exam reveals normal bowel sounds, no masses, no organomegaly and no aortic enlargement. Extremities are nonedematous and both femoral and pedal pulses are normal. Examination of the skin revealed no evidence of significant rashes, suspicious appearing nevi or other concerning lesions. Neurologically, the patient is awake and alert and the patient does not have any focal neurological deficit. Cranial nerves are essentially intact. Assessment and Plan Plan: Obstructive sleep apnea, symptomatic, currently off treatment and the patient is interested in pursuing treatment. Do not have documentation of the original studies and the patient obviously needs to be restudied. Chronic hypersomnia/sleepiness, Lakehead score of 6 Chronic anxiety/depression Hypertension Hyperlipidemia Acid reflux COPD Degenerative arthritis Chronic back pain Migraines ADHD Obesity with a BMI of 48.2 Mallampati class IV with poor dental condition. Plan Will set up the patient for a screening polysomnography. Encourage weight loss Maintain good sleep hygiene measures and maintain regular sleep schedule Treat comorbidities and continue same medication Will review the polysomnography once completed and we will make further recommendations on treatment. Will continue to follow. Sleep Note - Sleep Data ESS Total: 6 - Sleep Note Sleep Note: Temperature: 98.2 F Pulse Rate: 78 Respiratory Rate: 16 Blood Pressure: 141/90 SpO2: 95 Height: 5 ft 4 in Weight: 127.63 kg BMI: Neck Circumference: 16.6
== END ==
LOC: 3 N SLEEP 14:11
PROVIDERS: ATTEND Internal Medicine Critical Care Medicine
DX: G47.33 Obstructive sleep apnea (adult) (pediatric) (principal); I10 Essential (primary) hypertension; F41.9 Anxiety disorder, unspecified; F32.A Depression, unspecified; E78.5 Hyperlipidemia, unspecified; K21.9 Gastro-esophageal reflux disease without esophagitis; J44.9 Chronic obstructive pulmonary disease, unspecified; M19.90 Unspecified osteoarthritis, unspecified site; G89.29 Other chronic pain; G43.909 Migraine, unspecified, not intractable, without status migrainosus; F90.9 Attention-deficit hyperactivity disorder, unspecified type; E66.9 Obesity, unspecified; Z68.42 Body mass index [BMI] 45.0-49.9, adult; Z87.891 Personal history of nicotine dependence; Z91.030 Bee allergy status; Z88.8 Allergy status to other drugs, medicaments and biological substances
CPT/HCPCS: 99211

== ENCOUNTER 2024-10-04 19:36 | Outpatient (CLI) | payer OTHER ==
--- NOTE | 2024-10-05 14:50 | P.PCN ---
Date of Procedure: 10/04/24 Operative Findings: Polysomnography report Date of service is 10/04/2024 History This is a 44-year-old female patient, presenting to the sleep center with concerns of ongoing hypersomnia and sleepiness. The patient has been diagnosed having obstructive sleep apnea many years back. She was under the care of Dr. CORREA and she was found to have severe obstructive sleep apnea and she was given CPAP therapy. The patient used the machine for quite some time and ultimately she stopped treatment. Over the years, the patient has become more symptomatic. For now, she has loud snoring, witnessed apneas and chronic hypersomnia sleepiness. Her Haverhill score is currently at 6. She is disabled due to her me dical problems and comorbidities. She is living at her own house and she has a autistic child at home. She has history of ADHD maintained on Concerta. She has chronic anxiety and depression and the patient has significant social anxiety where she is unable even to drive a car. She is maintained on Vraylar and Lamictal. She smokes marijuana on a daily basis. She has hypertension, hyperlipidemia, reflux, COPD, degenerative arthritis, migraines, chronic back pain and she is morbidly obese. He goes to bed at around 11 PM, gets about at 6 AM in the morning and on weekends, she tends to sleep longer and she gets out of bed between 7 and 9 AM in the morning. She occasionally takes naps during the day. No sleep paralysis. No hallucinations. No cataplexy. On and off, she consumes an energy drink/monster. Over the years, she has gained weight. As her condition got worse, the patient presented to the sleep center to undergo further investigation she is interested in going back on CPAP therapy. No history of grinding. No sleepwalking. No sleep talking. No restlessness in lower extremities. No nocturnal heartburn or chest pain. The patient is currently off treatment and the patient is interested in pursuing treatment. Do not have documentation of the original studies and the patient obviously needs to be restudied. Technical description The patient was studied using a standard complex polysomnography protocol that included recording of the Lead II EKG, Central, occipital and frontal EEG, right and left outer canthus EOG, submental EMG, right and left anterior tibialis EMG, respiratory airflow by thermocouple and or pressure/flow transducer, respiratory efforts by abdominal and thoracic PVDF belts, oxygen saturation by cable oximetry. Position by observation synchronized the PSG. Equipment used: [employer]. Sleep architecture The patient had a total recording duration of 114 minutes. The patient's total sleep time was 375.5 minutes. The wake after sleep onset time was 19.5 minutes. The patient had a good sleep efficiency of 90.7%. The latency to sleep onset was 14.5 minutes. The latency to REM sleep was 106.5 minutes. The sleep architecture was characterized by 0.3% stage I, 72.7% stage II, 21% stage III, and a total of 6.1% REM sleep. The total arousal index was 4. Respiratory summary The patient had a total of 60 obstructive events of which 3 were obstructive apneas, 0 were mixed apneas and 57 were obstructive hypopneas. This is a case of mild obstructive sleep apnea with an AHI of 6.4. The patient had worsening of her disease in the supine body position and during REM sleep. AHI while supine was 17 and AHI during REM was 52.2. Oxygenation analysis The baseline pulse ox was 93% while awake. Lowest oxygen saturation was 89% and this patient spent approximately 1 minute of the sleep time below pulse ox of 89% accounted for 0.2% of the overall recording time. Limb movements The patient had no periodic limb movement activity Arousal events A total of 25 arousals with an arousal index of 4, respiratory arousal index was 0.3 Cardiac summary Average heart rate was 77 with a minimum heart rate of 71 and a maximum heart of 84 Assessment Mild obstructive sleep apnea, worse during REM and worsening supine body position. The AHI was calculated to be at 6.4. No significant nocturnal oxygen desaturations. Adequate sleep architecture with some of representation of stage II sleep with diminished delta wave. The patient also has overexpression of stage III sleep. No significant sleep fragmentation Sleep efficiency of 90.7% Chronic hypersomnia/sleepiness, Haverhill score of 6 Chronic anxiety/depression Hypertension Hyperlipidemia Acid reflux COPD Degenerative arthritis Chronic back pain Migraines ADHD Obesity with a BMI of 48.2 Mallampati class IV with poor dental condition. Plan This is a case of mild obstructive sleep apnea. I do not think there is much benefit from CPAP therapy and her chronic fatigue and sleepiness probably due to her chronic comorbidities. However, the patient has a mild component of obstructive sleep apnea and the patient should benefit from sleeping on his side and losing weight. Encourage weight loss Maintain good sleep hygiene measures and maintain regular sleep schedule Treat comorbidities and continue same medication Continue current treatment for now. Consider CPAP therapy in the future should the patient's condition declines or gets worse. For now, based on her level of disease severity and is her symptoms, I do not see any immediate need for CPAP therapy. Not a candidate for a mandibular advancement device due to poor dentition. Treatment will be essentially supportive and conservative at this point.
== END 2024-10-05 06:00 | disposition home or self-care (01) ==
LOC: 3 N SLEEP 19:36
PROVIDERS: ATTEND Internal Medicine Critical Care Medicine
DX: G47.33 Obstructive sleep apnea (adult) (pediatric) (principal); F32.A Depression, unspecified; F41.9 Anxiety disorder, unspecified; I10 Essential (primary) hypertension; E78.5 Hyperlipidemia, unspecified; J44.9 Chronic obstructive pulmonary disease, unspecified; K21.9 Gastro-esophageal reflux disease without esophagitis; M19.90 Unspecified osteoarthritis, unspecified site; M54.9 Dorsalgia, unspecified; G89.29 Other chronic pain; G43.909 Migraine, unspecified, not intractable, without status migrainosus; F90.9 Attention-deficit hyperactivity disorder, unspecified type; E66.9 Obesity, unspecified; Z68.42 Body mass index [BMI] 45.0-49.9, adult; Z99.89 Dependence on other enabling machines and devices; Z91.030 Bee allergy status; Z88.8 Allergy status to other drugs, medicaments and biological substances; Z87.891 Personal history of nicotine dependence
CPT/HCPCS: 95810